=== PATIENT | female | born 1975 | race American Indian/Alaskan Native ===

== ENCOUNTER 2016-12-05 01:24 | Inpatient (IN) | payer MEDICARE ==
[2016-12-05] MEDS ORDERED: DILAUDID IV ONE ×2 (01:59→02:46)
[2016-12-05] MEDS ORDERED: ZOFRAN IV ONE (01:59)
[2016-12-05 02:16] LABS: Basophils % (Auto) 0.2 % (0.0-1.8); Eosinophils % (Auto) 1.4 % (0.0-4.3); Hematocrit 24.7 % (30.3-42.9); Hemoglobin 7.9 gm/dl (10.1-14.3); Mean Corpuscular HGB Conc 32 % (30-34); Mean Corpuscular Hemoglobin 33 pg (28-32); Mean Corpuscular Volume 102 fl (79-97); Platelet Count 263 K/mm3 (140-440); Red Blood Count 2.42 M/mm3 (3.65-5.03); Red Cell Distribution Width 18.6 % (13.2-15.2)
[2016-12-05 02:33] LABS: INR 0.99 (0.87-1.13)
[2016-12-05 02:34] LABS: Partial Thromboplastin Time 30.6 Sec. (24.2-36.6)
[2016-12-05 02:37] LABS: Albumin 3.6 g/dL (3.9-5); Albumin/Globulin Ratio 1.1 %; BUN/Creatinine Ratio 3.02; Bilirubin,Total 0.2 mg/dL (0.1-1.2); Calcium 9.5 mg/dL (8.4-10.2)
[2016-12-05 02:38] LABS: Chloride 92.3 mmol/L (98-107); Potassium 4.1 mmol/L (3.6-5.0)
--- NOTE | 2016-12-05 02:52 | Emergency Department Report ---
- General Chief Complaint: Wound/Laceration Stated Complaint: BLEEDING FISTULA Time Seen by Provider: 12/05/16 01:57 Source: patient, EMS, old records reviewed Mode of arrival: Stretcher Limitations: No Limitations - History of Present Illness Initial Comments: 41 yo female the past medical history diabetes, hypertension, kidney stones, end -stage renal disease on dialysis, and pancreatitis presents to the hospital complaining of bleeding from her right upper arm fistula. Started tonight prior to arrival. EMS was seen states she soaked through 2 with towels. Pressure bandage applied around to the hospital. Patient complains of moderate to severe right arm pain secondary to compression dressing. Pain is constant. On November 30 patient had bleeding to the same site. She was seen by her vascular doctors affiliated with [facility] on the and had a fistulogram that was unremarkable. Patient was scheduled to follow-up next week. In the meantime dialysis is being provided Wednesday, , Wednesday via her permacath in her chest wall. Patient is scheduled for dialysis today/ the . Ent Surgeon: Dr. Guzmán - Related Data Home Medications Medication Instructions Recorded Confirmed Last Taken Clonidine HCl [Catapres] 0.3 mg PO BID 07/04/13 09/04/14 04/24/14 Metoprolol [Lopressor TAB] 1 tab PO DAILY 07/04/13 09/04/14 04/24/14 glipiZIDE [glipiZIDE XL] 10 mg PO BID 07/04/13 09/04/14 04/25/14 Aspirin [Aspirin TAB] 325 mg PO DAILY 04/25/14 09/04/14 04/25/14 Sevelamer Carbonate [Renvela] 400 mg PO TID 04/25/14 09/04/14 04/24/14 Allergies Allergy/AdvReac Type Severity Reaction Status Date / Time warfarin sodium Allergy Hives Verified 09/03/14 17:15 [From Coumadin] ED Review of Systems ROS: Stated complaint: BLEEDING FISTULA Other details as noted in HPI Comment: All other systems reviewed and negative Other: Constitutional: No fevers chills Eyes: No eye pain visual changes or discharge ENT: No ear pain or throat pain Neck: Denies pain Respiratory: Denies cough wheezing shortness of breath Cardiovascular: Denies chest pain, palpitations, syncope GI: Denies abdominal pain, nausea, vomiting, diarrhea : Denies dysuria Musculoskeletal: As per HPI Skin: Denies rash, lesions, erythema Neurologic: Denies headache, numbness, weakness Psychiatric: Denies suicidal ideation, hallucinations ED Past Medical Hx - Past Medical History Previous Medical History?: Yes Hx Hypertension: Yes Hx Diabetes: Yes Hx Renal Disease: Yes Hx Kidney Stones: Yes Additional medical history: Dialysis (TTS). Pancreatitis - Surgical History Hx Cholecystectomy: Yes Additional Surgical History: fistula to left arm. PERMACATH LEFT CHEST. fistula to right arm - Social History Smoking Status: Never Smoker Substance Use Type: None - Medications Home Medications: Home Medications Medication Instructions Recorded Confirmed Last Taken Type Clonidine HCl [Catapres] 0.3 mg PO BID 07/04/13 09/04/14 04/24/14 History Metoprolol [Lopressor TAB] 1 tab PO DAILY 07/04/13 09/04/14 04/24/14 History glipiZIDE [glipiZIDE XL] 10 mg PO BID 07/04/13 09/04/14 04/25/14 History Aspirin [Aspirin TAB] 325 mg PO DAILY 04/25/14 09/04/14 04/25/14 History Sevelamer Carbonate [Renvela] 400 mg PO TID 04/25/14 09/04/14 04/24/14 History ED Physical Exam - General Limitations: No Limitations - Other Other exam information: General: No limitations, patient is alert in no acute distress Head exam: Atraumatic, normocephalic Eyes exam: Normal appearance, pupils equal reactive to light, extraocular movements intact ENT: Moist mucous membrane, normal oropharynx Neck exam: Normal inspection, full range of motion, no meningismus nontender Respiratory exam: Clear to auscultation bilateral, no wheezes, rales, crackles Cardiovascular: Normal rate and rhythm, normal heart sounds Abdomen: Soft, nondistended, and nontender, with normal bowel sounds, no rebound, or guarding Extremity: Full range of motion. Right upper arm with pressure dressing. After removal positive pulsatile bleeding. We'll redress with heliostat, gauze and pressure bandage and held in elevation Back: Normal Inspection, full range of motion, no tenderness Neurologic: Alert, oriented x3, cranial nerves intact, no motor or sensory deficit Psychiatric: normal affect, normal mood Skin: Warm, dry, intact ED Course Vital Signs 12/05/16 12/05/16 12/05/16 01:21 01:30 01:31 Temperature 98.3 F Pulse Rate 115 H 111 H Respiratory 16 17 16 Rate Blood Pressure 147/94 Blood Pressure 147/94 [Left] O2 Sat by Pulse 100 97 Oximetry 12/05/16 12/05/16 12/05/16 01:41 01:51 02:01 Temperature Pulse Rate 112 H 110 H 110 H Respiratory 12 11 L 13 Rate Blood Pressure 148/107 Blood Pressure [Left] O2 Sat by Pulse 100 99 Oximetry 12/05/16 12/05/16 12/05/16 02:11 02:21 02:30 Temperature Pulse Rate 107 H 109 H 109 H Respiratory 11 L 12 11 L Rate Blood Pressure 148/107 132/95 139/99 Blood Pressure [Left] O2 Sat by Pulse 100 Oximetry 12/05/16 12/05/16 12/05/16 02:41 02:51 03:00 Temperature Pulse Rate 107 H 106 H Respiratory 21 41 H 12 Rate Blood Pressure 139/99 140/96 138/99 Blood Pressure [Left] O2 Sat by Pulse 100 100 Oximetry 12/05/16 12/05/16 12/05/16 03:11 03:21 03:30 Temperature Pulse Rate 106 H 114 H 105 H Respiratory 17 16 12 Rate Blood Pressure 138/99 171/124 137/96 Blood Pressure [Left] O2 Sat by Pulse 99 100 99 Oximetry 12/05/16 12/05/16 12/05/16 03:41 03:51 04:00 Temperature Pulse Rate 105 H 106 H 103 H Respiratory 12 14 12 Rate Blood Pressure 137/96 135/96 118/101 Blood Pressure [Left] O2 Sat by Pulse 99 99 98 Oximetry 12/05/16 12/05/16 04:10 04:21 Temperature Pulse Rate 104 H 108 H Respiratory 11 L 16 Rate Blood Pressure 118/101 132/94 Blood Pressure [Left] O2 Sat by Pulse 100 100 Oximetry - Reevaluation(s) Reevaluation #1: 12/05/16 04:42 Patient required Dilaudid for pain management with minimum improvement secondary to pain due to pressure bandage. - Consultations Consultation #1: 12/05/16 02:52 Dr. Powell vascular surgeon control clerk [employer] and beverage will come to the ED to place a stitch into patient's bleeding AV access 12/05/16 04:07 Dr. Powell came to the ED to place a stitch recommend that patient have outpatient fistulogram through her vascular surgeon Consultation #2: 12/05/16 04:07 Dr. Guzmán consult regarding patient's persistent resting tachycardia and anemia. States that patient's baseline hemoglobin is typically much higher to 7.9 and recommends 1 unit blood transfusion. Will evaluate and arrange for dialysis as inpatient ED Medical Decision Making - Lab Data Result diagrams: 12/05/16 01:42 12/05/16 01:42 Lab Results 12/05/16 12/05/16 12/05/16 Range/Units 01:42 01:42 01:42 WBC 6.0 (4.5-11.0) K/mm3 RBC 2.42 L (3.65-5.03) M/mm3 Hgb 7.9 L (10.1-14.3) gm/dl Hct 24.7 L (30.3-42.9) % MCV 102 H (79-97) fl MCH 33 H (28-32) pg MCHC 32 (30-34) % RDW 18.6 H (13.2-15.2) % Plt Count 263 (140-440) K/mm3 Lymph % (Auto) 20.4 (13.4-35.0) % [place] % (Auto) 9.9 H (0.0-7.3) % Eos % (Auto) 1.4 (0.0-4.3) % Baso % (Auto) 0.2 (0.0-1.8) % Lymph # 1.2 (1.2-5.4) K/mm3 [place] # 0.6 (0.0-0.8) K/mm3 Eos # 0.1 (0.0-0.4) K/mm3 Baso # 0.0 (0.0-0.1) K/mm3 Seg Neutrophils % 68.1 (40.0-70.0) % Seg Neutrophils # 4.1 (1.8-7.7) K/mm3 PT 13.6 (12.2-14.9) Sec. INR 0.99 (0.87-1.13) APTT 30.6 (24.2-36.6) Sec. Sodium 134 L (137-145) mmol/L Potassium 4.1 (3.6-5.0) mmol/L Chloride 92.3 L (98-107) mmol/L Carbon Dioxide 29 (22-30) mmol/L Anion Gap 17 mmol/L BUN 23 H (7-17) mg/dL Creatinine 7.6 H (0.7-1.2) mg/dL Estimated GFR 7 ml/min BUN/Creatinine Ratio 3.02 % Glucose 146 H (65-100) mg/dL Calcium 9.5 (8.4-10.2) mg/dL Total Bilirubin 0.20 (0.1-1.2) mg/dL AST 18 (5-40) units/L ALT 9 (7-56) units/L Alkaline Phosphatase 70 (35-129) units/L Total Protein 7.0 (6.3-8.2) g/dL Albumin 3.6 L (3.9-5) g/dL Albumin/Globulin Ratio 1.1 % Blood Type Antibody Screen IVIS Antibody Screen Crossmatch 12/05/16 Range/Units 02:00 WBC (4.5-11.0) K/mm3 RBC (3.65-5.03) M/mm3 Hgb (10.1-14.3) gm/dl Hct (30.3-42.9) % MCV (79-97) fl MCH (28-32) pg MCHC (30-34) % RDW (13.2-15.2) % Plt Count (140-440) K/mm3 Lymph % (Auto) (13.4-35.0) % [place] % (Auto) (0.0-7.3) % Eos % (Auto) (0.0-4.3) % Baso % (Auto) (0.0-1.8) % Lymph # (1.2-5.4) K/mm3 [place] # (0.0-0.8) K/mm3 Eos # (0.0-0.4) K/mm3 Baso # (0.0-0.1) K/mm3 Seg Neutrophils % (40.0-70.0) % Seg Neutrophils # (1.8-7.7) K/mm3 PT (12.2-14.9) Sec. INR (0.87-1.13) APTT (24.2-36.6) Sec. Sodium (137-145) mmol/L Potassium (3.6-5.0) mmol/L Chloride (98-107) mmol/L Carbon Dioxide (22-30) mmol/L Anion Gap mmol/L BUN (7-17) mg/dL Creatinine (0.7-1.2) mg/dL Estimated GFR ml/min BUN/Creatinine Ratio % Glucose (65-100) mg/dL Calcium (8.4-10.2) mg/dL Total Bilirubin (0.1-1.2) mg/dL AST (5-40) units/L ALT (7-56) units/L Alkaline Phosphatase (35-129) units/L Total Protein (6.3-8.2) g/dL Albumin (3.9-5) g/dL Albumin/Globulin Ratio % Blood Type A POSITIVE Antibody Screen TNR IVIS Antibody Screen Negative Crossmatch See Detail - Medical Decision Making Patient has anemia. Last hemoglobin on record was from 2014. Although patient is normotensive and no signs of active bleeding at this time she has a persistent resting tachycardia and a hemoglobin of 7.9. Dr. Guzmán consultation states this is a change in her baseline hemoglobin and recommends transfusion of 1 unit PRBCs. Patient will be admitted to the hospital for transfusion and likely dialysis today. - Differential Diagnosis anemia, bleeding fistula Critical Care Time: No Critical care attestation.: If time is entered above; I have spent that time in minutes in the direct care of this critically ill patient, excluding procedure time. ED Disposition Clinical Impression: Hemorrhage of arteriovenous fistula, ESRD (end stage renal disease) on dialysis , Obesity, Class II, BMI 35-39.9, Hyponatremia, Anemia Disposition: OP ADMIT IP TO THIS HOSP Is pt being admited?: Yes Condition: Stable Time of Disposition: 04:44 (Dr Dockery/hosp)
[2016-12-05] MEDS ORDERED: NACL 0.9% 500 ML 500 ML IV ONE (04:02)
[2016-12-05] MEDS ORDERED: MORPHINE IV ONE (04:35)
[2016-12-05] MEDS ORDERED: ZOFRAN IV PRN (04:52)
[2016-12-05] MEDS ORDERED: MORPHINE IV PRN (04:52)
[2016-12-05] MEDS ORDERED: TYLENOL PO PRN (04:52)
[2016-12-05] MEDS ORDERED: DULCOLAX PR PRN (04:52)
--- NOTE | 2016-12-05 04:52 | History and Physical Report ---
History of Present Illness Date of examination: 12/05/16 History of present illness: 41-year-old woman with a history of end-stage renal disease on dialysis, hypertension, diabetes comes emergency room with complaints of spontaneous bleeding profusely from her AV fistula. This is her fifth episode. 2 weeks ago she had bleeding from the fistula but she was able to stop the bleeding at home. She follow-up with her vascular doctor, Ultrasound was done which showed a hematoma. The patient was seen by vascular in the emergency room Patient denies chest pain, palpitation, shortness of breath, cough, abdominal pain, hematochezia, dysuria, frequency, focal weakness, dysarthria, fever chills , polydipsia polyuria, hot or cold intolerance, easy bruisability, or rash or bleeding from mucosal membrane, rhinorrhea, epistaxis, earache, tinnitus, blurry vision, eye discharge, anxiety, depression. Other review of systems negative PAST SURGICAL HISTORY: AV Fistula a cholecystectomy SOCIAL HISTORY: Denies alcohol, drugs, admits to smoking FAMILY HISTORY: Hypertension Medications and Allergies Allergies Allergy/AdvReac Type Severity Reaction Status Date / Time warfarin sodium Allergy Hives Verified 09/03/14 17:15 [From Coumadin] Home Medications Medication Instructions Recorded Confirmed Last Taken Type Clonidine HCl [Catapres] 0.3 mg PO BID 07/04/13 09/04/14 04/24/14 History Metoprolol [Lopressor TAB] 1 tab PO DAILY 07/04/13 09/04/14 04/24/14 History glipiZIDE [glipiZIDE XL] 10 mg PO BID 07/04/13 09/04/14 04/25/14 History Aspirin [Aspirin TAB] 325 mg PO DAILY 04/25/14 09/04/14 04/25/14 History Sevelamer Carbonate [Renvela] 400 mg PO TID 04/25/14 09/04/14 04/24/14 History Exam - Physical Exam Narrative exam: Gen. appearance: Patient lying in bed, no apparent distress HEENT: Normocephalic, atraumatic, pupils equally round and reactive to light, extraocular movement intact, and no sclericterus,. No JVD or thyromegaly or nodule,neck supple, no carotid bruit ,mucous membranes moist, no exudate or erythema Heart: S1, S2, regular rate and rhythm Lungs: Clear to auscultation bilaterally, breathing comfortable Abdomen: Positive bowel sounds, nontender, nondistended, no organomegaly Extremity: right arm wrapped, No edema, cyanosis, clubbing Skin: No rash, nodules, warm, dry Neuro: Oriented 3, cranial nerves II-12 intact, speech is fluent, motor and sensory intact - Constitutional Vitals: Temp Pulse Resp BP Pulse Ox 98.3 F 108 H 16 132/94 100 12/05/16 01:30 12/05/16 04:21 12/05/16 04:21 12/05/16 04:21 12/05/16 04:21 Results - Labs CBC & Chem 7: 12/05/16 01:42 12/05/16 01:42 Labs: Abnormal lab results 12/05/16 12/05/16 12/05/16 Range/Units 01:42 01:42 02:00 RBC 2.42 L (3.65-5.03) M/mm3 Hgb 7.9 L (10.1-14.3) gm/dl Hct 24.7 L (30.3-42.9) % MCV 102 H (79-97) fl MCH 33 H (28-32) pg RDW 18.6 H (13.2-15.2) % [place] % (Auto) 9.9 H (0.0-7.3) % Sodium 134 L (137-145) mmol/L Chloride 92.3 L (98-107) mmol/L BUN 23 H (7-17) mg/dL Creatinine 7.6 H (0.7-1.2) mg/dL Glucose 146 H (65-100) mg/dL Albumin 3.6 L (3.9-5) g/dL Crossmatch See Detail Assessment and Plan Bleeding from AV fistula Blood loss anemia Hypertension Diabetes End-stage renal disease Admit to medicine Transfuse packed red cells, consult vascular Consult Renal for dialysis Check fingersticks initiate insulin sliding scale Continue appropiate outpatient medications, start DVT prophylaxis with SCD
[2016-12-05] MEDS ORDERED: D50W (25GM) IV PRN (05:18)
[2016-12-05] MEDS: GLUCOTROL XL PO SCH ×2 (08:46→19:00)
[2016-12-05] MEDS: RENVELA PO SCH ×3 (08:46→19:00)
[2016-12-05] MEDS: NOVOLOG SUB-Q SCH ×4 (09:10→23:00)
[2016-12-05] MEDS ORDERED: NON-FORMULARY (Clonidine Hcl [Catapres] 0.3 MG) PO SCH (10:00)
--- NOTE | 2016-12-05 11:09 | Event Note ---
Date: 12/05/16 Patient was seen and evaluated ESRD on HD, Bleeding from AV fistula site. Vascular surgery Dr Powell did suturing and put bandage on the right arm. Patient is complaining of right arm pain and swelling. Dr. Powell will be called to evaluate her.
[2016-12-05] MEDS ORDERED: NACL 0.9% 100 ML IV PRN (11:19)
[2016-12-05] MEDS ORDERED: HEPARIN IV PRN (11:19)
[2016-12-05] MEDS ORDERED: PROCRIT IV PRN (11:19)
[2016-12-05 12:35] LABS: Hematocrit 26.2 % (30.3-42.9); Hemoglobin 8.4 gm/dl (10.1-14.3)
[2016-12-05] MEDS: LOPRESSOR PO SCH (12:59)
[2016-12-05] MEDS: CATAPRES PO SCH ×2 (12:59→23:00)
--- NOTE | 2016-12-05 15:17 | Consultation ---
History of Present Illness - Reason for Consult Consult date: 12/05/16 end stage renal disease Requesting physician: GRICELDA CORDERO - History of Present Illness 41-year-old woman with a history of 2 diabetes mellitus, hypertension complicated by end-stage renal disease on hemodialysis Wednesday, and Wednesday schedule. Patient had a right upper extremity AV fistula placed about a couple months ago. She has been having recurrent spontaneous bleeding profusely from her arm with the AV fistula. This is her fifth episode. He has a wound in that arm. 2 weeks ago she had bleeding from the fistula but she was able to stop the bleeding at home. He saw vascular surgeon and had an ultrasound done. Patient had bleeding on November 30 and we'll consult vascular surgeon again at [facility] on December 02 and had a fistulogram. She was told by the surgeon that she had central venous stenosis. She would not be able to use the AV fistula. She has had at least 2 permacath in the right internal jugular line in the past. The right upper extremity AV fistula will have to be taken down and a new AV fistula placed in the left upper extremity. She currently receives dialysis through a left internal jugular permacath. Patient presents now from home as she was changing her clothes to go to bed last night, she developed bleeding again from the right upper arm with AV fistula. She called 911 immediately. She soaked through 2 towels by the time EMS came. They placed a pressure bandage and patient was brought to the emergency room. Vascular surgeon was called and Dr. Powell put a stitch at the bleeding site over AV access. Hemoglobin was down to 7.9 g/dL and patient was tachycardic and so she was admitted for further observation. Past History Past Medical History: ESRD, hypertension Medications and Allergies Allergies Allergy/AdvReac Type Severity Reaction Status Date / Time warfarin sodium Allergy Hives Verified 09/03/14 17:15 [From Coumadin] Home Medications Medication Instructions Recorded Confirmed Last Taken Type Clonidine HCl [Catapres] 0.3 mg PO BID 07/04/13 09/04/14 04/24/14 History Metoprolol [Lopressor TAB] 1 tab PO DAILY 07/04/13 09/04/14 04/24/14 History glipiZIDE [glipiZIDE XL] 10 mg PO BID 07/04/13 09/04/14 04/25/14 History Aspirin [Aspirin TAB] 325 mg PO DAILY 04/25/14 09/04/14 04/25/14 History Sevelamer Carbonate [Renvela] 400 mg PO TID 04/25/14 09/04/14 04/24/14 History Active Meds: Active Medications Acetaminophen (Tylenol) 650 mg PO Q4H PRN PRN Reason: Pain MILD(1-3)/Fever >100.5/POWERS Last Admin: 12/05/16 13:04 Dose: 650 mg Bisacodyl (Dulcolax) 10 mg RI QDAY PRN PRN Reason: Constipation unrelieved by MOM Clonidine HCl (Catapres) 0.3 mg PO BID [facility] Last Admin: 12/05/16 12:59 Dose: Not Given Dextrose (D50w (25gm)) 50 ml IV PRN PRN PRN Reason: Hypoglycemia Epoetin Deepak (Procrit) 10,000 unit IV MORE PRN PRN Reason: hemodialysis Glipizide (Glucotrol Xl) 10 mg PO BIDDIAB [facility] Last Admin: 12/05/16 08:46 Dose: 10 mg Heparin Sodium (Porcine) (Heparin) 5,000 unit IV MORE PRN PRN Reason: hemodialysis Sodium Chloride (Nacl 0.9%) 100 mls @ 999 mls/hr IV MORE PRN PRN Reason: Hypotension Insulin Aspart (Novolog) 0 units SUB-Q ACHS [facility] PRN Reason: Protocol Last Admin: 12/05/16 12:59 Dose: 3 units Metoprolol Tartrate (Lopressor) 50 mg PO DAILY [facility] Last Admin: 12/05/16 12:59 Dose: Not Given Morphine Sulfate (Morphine) 2 mg IV Q4H PRN PRN Reason: Pain, Moderate (4-6) Ondansetron HCl (Zofran) 4 mg IV Q8H PRN PRN Reason: N/V unrelieved by Reglan Sevelamer Carbonate (Renvela) 400 mg PO TIDWM [facility] Last Admin: 12/05/16 12:58 Dose: 400 mg Review of Systems All systems: negative (Constitutional: no fever or chills. No anorexia or weight loss. HEENT: No sore throat or sinus drainage no hearing or vision impairment . Cardiovascular: No chest pain, shortness of breath, palpitations, lower extremity swelling or dizziness. Respiratory: No cough, sputum, shortness of breath, hemoptysis or wheezing. Gastrointestinal: No nausea, vomiting, diarrhea, abdominal pain, hematemesis or melena. Genitourinary: No longer makes urine. hematologic: She had bleeding from the right upper arm with AV fistula but no easy bruising. Integumentary: no pruritus or rash. Neurological: No headache no focal weakness or numbness, no syncope or seizures. Musculoskeletal: No joint pains no stiffness. She has pain in the right upper arm Psychiatry: no anxiety or depression) Exam - Vital Signs Vital signs: Vital Signs Resp Pulse Ox 16 100 12/05/16 01:21 12/05/16 01:21 - Physical Exam Narrative exam: [Obese young -[place] female lying in bed] in no acute distress except for pain HEENT [normocephalic atraumatic, pupils equal reactive to light, pink, clear oropharynx] Neck [supple, no thyromegaly no jugular venous distention] CVS [S1-S2 regular rate rhythm without murmur, rub or gallop] Chest [clear to auscultation] Abdomen [soft nondistended nontender no organomegaly no bruit bowel sounds present] Extremities [Pressure dressing over her right upper extremity, swelling over right upper extremity, no edema no cyanosis or clubbing] Genitourinary [deferred] Neuro [awake, alert oriented x3 no gross deficit] Results - Lab Results 12/05/16 12:21 12/05/16 01:42 Most recent lab results Calcium 9.5 mg/dL (8.4-10.2) 12/05/16 01:42 Assessment and Plan - Patient Problems (1) Acute post-hemorrhagic anemia Current Visit: Yes Status: Acute Plan to address problem: Hemoglobin predialysis. It drops to less than 7 g/dL, transfuse another unit of packed red blood (2) Hypertensive chronic kidney disease with stage 5 chronic kidney disease or end stage renal disease Current Visit: Yes Status: Acute Plan to address problem: Follow blood pressure (3) ESRD (end stage renal disease) on dialysis Current Visit: Yes Status: Acute Plan to address problem: Hemodialysis today for solute clearance and fluid removal. (4) Hemorrhage of arteriovenous fistula Current Visit: Yes Status: Acute Qualifiers: Encounter type: E Plan to address problem: Follow-up with vascular surgeon (5) Anemia in end-stage renal disease Current Visit: Yes Status: Acute Plan to address problem: Give erythropoietin on dialysis (6) Type II diabetes mellitus Current Visit: No Status: Chronic Qualifiers: Diabetes mellitus complication status: D Diabetes mellitus complication detail: D Diabetic retinopathy severity: D Proliferative retinopathy type: P Diabetes mellitus macular edema: D Diabetes mellitus long-term insulin use : D Laterality: L Chronic kidney disease stage: C Plan to address problem: Blood sugar management by primary attending
[2016-12-05 17:10] LABS: Hematocrit 22.1 % (30.3-42.9); Hemoglobin 7.4 gm/dl (10.1-14.3)
[2016-12-05] MEDS ORDERED: NACL 0.9 (PRIMING MACHINE ONLY DIALYSIS) MC ONE (18:37)
[2016-12-05] MEDS: PERCOCET 5/325 PO PRN (22:40)
[2016-12-06 07:00] LABS: Hematocrit 22.4 % (30.3-42.9); Hemoglobin 7.4 gm/dl (10.1-14.3)
[2016-12-06 07:19] LABS: BUN/Creatinine Ratio 2.41; Calcium 8.8 mg/dL (8.4-10.2); Chloride 97.9 mmol/L (98-107); Potassium 4.2 mmol/L (3.6-5.0)
[2016-12-06] MEDS: GLUCOTROL XL PO SCH (08:00)
[2016-12-06 08:30] VITALS: BP 133/61
[2016-12-06] MEDS: NOVOLOG SUB-Q SCH (09:07)
--- NOTE | 2016-12-06 09:10 | Consultation ---
History of Present Illness - Reason for Consult Consult date: 12/12/16 bleeding right arm fistula - History of Present Illness Presented to ED with bleeding right arm fistula site. She has a h/o Basilic Vein fistula creation which hasn't been used due to ulcer present after infection. The ulcer has been healing. She denies h/o radiation, no other significant medical issues besides ESRD on HD via left Permacath. Past History Past Medical History: ESRD, hypertension Medications and Allergies Allergies Allergy/AdvReac Type Severity Reaction Status Date / Time warfarin sodium Allergy Hives Verified 09/03/14 17:15 [From Coumadin] Home Medications Medication Instructions Recorded Confirmed Last Taken Type Clonidine HCl [Catapres] 0.3 mg PO BID 07/04/13 12/05/16 12/04/16 History Metoprolol [Lopressor TAB] 1 tab PO DAILY 07/04/13 12/05/16 12/04/16 History glipiZIDE [glipiZIDE XL] 10 mg PO BID 07/04/13 12/05/16 12/04/16 History Aspirin [Aspirin TAB] 325 mg PO DAILY 04/25/14 12/05/16 12/04/16 History Sevelamer Carbonate [Renvela] 400 mg PO TID 04/25/14 12/05/16 12/04/16 History Active Meds: Active Medications Acetaminophen (Tylenol) 650 mg PO Q4H PRN PRN Reason: Pain MILD(1-3)/Fever >100.5/POWERS Last Admin: 12/05/16 13:04 Dose: 650 mg Bisacodyl (Dulcolax) 10 mg UT QDAY PRN PRN Reason: Constipation unrelieved by MOM Clonidine HCl (Catapres) 0.3 mg PO BID [facility] Last Admin: 12/05/16 23:00 Dose: Not Given Dextrose (D50w (25gm)) 50 ml IV PRN PRN PRN Reason: Hypoglycemia Epoetin Deepak (Procrit) 10,000 unit IV MORE PRN PRN Reason: hemodialysis Last Admin: 12/05/16 20:51 Dose: 10,000 unit Glipizide (Glucotrol Xl) 10 mg PO BIDDIAB [facility] Last Admin: 12/05/16 19:00 Dose: Not Given Heparin Sodium (Porcine) (Heparin) 5,000 unit IV MORE PRN PRN Reason: hemodialysis Last Admin: 12/05/16 20:52 Dose: 5,000 unit Sodium Chloride (Nacl 0.9%) 100 mls @ 999 mls/hr IV MORE PRN PRN Reason: Hypotension Insulin Aspart (Novolog) 0 units SUB-Q ACHS MERLE PRN Reason: Protocol Last Admin: 12/05/16 23:00 Dose: 3 units Metoprolol Tartrate (Lopressor) 50 mg PO DAILY [facility] Last Admin: 12/05/16 12:59 Dose: Not Given Ondansetron HCl (Zofran) 4 mg IV Q8H PRN PRN Reason: N/V unrelieved by Reglan Oxycodone/Acetaminophen (Percocet 5/325) 1 tab PO Q4H PRN PRN Reason: Pain, Moderate (4-6) Last Admin: 12/05/16 22:40 Dose: 1 tab Sevelamer Carbonate (Renvela) 400 mg PO TIDWM [facility] Last Admin: 12/05/16 19:00 Dose: Not Given Review of Systems Constitutional: no fever, no chills, no sweats Ears, nose, mouth and throat: no vertigo Cardiovascular: no chest pain Respiratory: no shortness of breath, no wheezing Gastrointestinal: no abdominal pain Musculoskeletal: other (right arm pain) Integumentary: rash Neurological: no vertigo Psychiatric: anxiety Endocrine: no excessive sweating Hematologic/Lymphatic: other (bleeding from right arm) Allergic/Immunologic: no urticaria Exam - Constitutional Vitals: Temp Pulse Resp BP Pulse Ox 98.8 F 95 H 20 133/61 99 12/06/16 07:00 12/06/16 07:00 12/06/16 07:00 12/06/16 07:00 12/06/16 07:00 General appearance: Present: no acute distress - EENT Eyes: Present: EOM intact ENT: hearing intact - Neck Neck: Present: normal ROM - Respiratory Respiratory effort: normal - Cardiovascular Rhythm: regular - Extremities Extremities: abnormal (Right arm edema) Extremity abnormal: edema Peripheral Pulses: within normal limits (right radial and brachial pulses) - Abdominal General gastrointestinal: Present: soft - Integumentary Integumentary: Present: warm, rash - Psychiatric Psychiatric: appropriate mood/affect - Neurologic Neurologic: moves all extremities Results - Labs CBC & Chem 7: 12/06/16 00:00 12/06/16 06:32 Labs: Abnormal lab results 12/05/16 12/05/16 12/05/16 Range/Units 11:09 12:21 16:22 Hgb 8.4 L (10.1-14.3) gm/dl Hct 26.2 L (30.3-42.9) % Chloride (98-107) mmol/L Creatinine (0.7-1.2) mg/dL Glucose (65-100) mg/dL POC Glucose 168 H 157 H (70-105) 12/05/16 12/05/16 12/06/16 Range/Units 22:05 Unknown 00:00 Hgb 7.4 L 7.4 L (10.1-14.3) gm/dl Hct 22.1 L 22.4 L (30.3-42.9) % Chloride (98-107) mmol/L Creatinine (0.7-1.2) mg/dL Glucose (65-100) mg/dL POC Glucose 181 H (70-105) 12/06/16 12/06/16 Range/Units 05:29 06:32 Hgb (10.1-14.3) gm/dl Hct (30.3-42.9) % Chloride 97.9 L (98-107) mmol/L Creatinine 6.2 H (0.7-1.2) mg/dL Glucose 149 H (65-100) mg/dL POC Glucose 174 H (70-105) Assessment and Plan Right arm bleeding fistula with healing ulcer: Bleeding site appears to be a previous attempted puncture site, away from superficial healing ulcer. Ulcer was suture repaired after betadine used on the area with 3-0 prolene figure-of- eight and mattress sutures. She reports recently having a fistula duplex ultrasound by her vascular surgeon for the same issue of prolonged bleeding and it was normal. I advised her she should have a right arm fistulogram by her vascular surgeon and she will follow up with him Wednesday (H/o right permacaths).
[2016-12-06] MEDS: RENVELA PO SCH (09:36)
[2016-12-06] MEDS: LOPRESSOR PO SCH (09:37)
[2016-12-06] MEDS: CATAPRES PO SCH (09:38)
[2016-12-06] MEDS: PERCOCET 5/325 PO PRN (09:50)
[2016-12-06 09:53] LABS: Eosinophils % (Auto) 2.3 % (0.0-4.3); Hematocrit 25.6 % (30.3-42.9); Hemoglobin 8.4 gm/dl (10.1-14.3); Mean Corpuscular HGB Conc 33 % (30-34); Mean Corpuscular Hemoglobin 33 pg (28-32); Mean Corpuscular Volume 99 fl (79-97); Platelet Count 215 K/mm3 (140-440); Red Blood Count 2.58 M/mm3 (3.65-5.03); White Blood Count 5.1 K/mm3 (4.5-11.0)
[2016-12-06 10:05] LABS: Red Cell Distribution Width 20.2 % (13.2-15.2)
--- NOTE | 2016-12-06 13:11 | Discharge Summary ---
Providers - Providers Date of Admission: 12/05/16 04:52 Date of discharge: 12/06/16 Attending physician: GRICELDA CORDERO MD 12/05/16 07:51 Consult to Physician [CONS] Routine Consulting Provider: ELLEN PAINTER Reason For Exam: ESRD on H/D, Bleeding from AVF Place consult to:: Nephrology Notified:: duplicate order Primary care physician: [employer] Hospitalization Condition: Stable Hospital course: Patient with end-stage renal disease presented from bleeding for AV fistula. Patient had vascular evaluation who corrected bleeding vessel was sutured. Patient was stable no further episodes of bleeding hemoglobin hematocrit remained stable after transfusion. Patient had other means of having an receiving her hemodialysis. Patient was informed and educated to follow-up with vascular surgeon Wednesday at [facility]. She will have right arm fistulogram by her vascular surgeon at [place] on Wednesday. No further bleeding. Swelling has also diminished. We'll continue and at pressure bandage as on now. Informed not to change dressing until tomorrow when she sees vascular surgeon. Disposition: TO HOME OR SELFCARE - Discharge Diagnoses (1) Acute post-hemorrhagic anemia Status: Acute (2) Hemorrhage of arteriovenous fistula Status: Acute Qualifiers: Encounter type: E (3) Hypertensive chronic kidney disease with stage 5 chronic kidney disease or end stage renal disease Status: Acute (4) Obesity, Class II, BMI 35-39.9 Status: Chronic (5) Tobacco abuse Status: Acute (6) End-stage renal disease needing dialysis Status: Chronic Comment: Per nephrology. Core Measure Documentation - Palliative Care Palliative Care/ Comfort Measures: Not Applicable - Core Measures Any of the following diagnoses?: none Exam - Constitutional Vitals: Temp Pulse Resp BP Pulse Ox 98.8 F 95 H 20 133/61 95 12/06/16 07:00 12/06/16 07:00 12/06/16 07:00 12/06/16 07:00 12/06/16 09:13 General appearance: Present: no acute distress, well-nourished, obese - EENT ENT: hearing intact, clear oral mucosa - Neck Neck: Present: supple, normal ROM - Respiratory Respiratory: bilateral: CTA - Cardiovascular Heart Sounds: Present: S1 & S2. Absent: rub, click - Extremities Extremities: pulses symmetrical, No edema Extremity abnormal: other (right arm swelling no further bleeding. Also has been sutured. No exudate no evidence of infection.) - Abdominal General gastrointestinal: Present: soft, non-tender, non-distended, normal bowel sounds - Musculoskeletal Musculoskeletal: gait normal, strength equal bilaterally - Psychiatric Psychiatric: appropriate mood/affect, intact judgment & insight - Neurologic Neurologic: CNII-XII intact, moves all extremities Plan Activity: no restrictions, avoid flexion Weight Bearing Status: Full Weight Bearing Diet: renal Follow up with: PRIMARY CARE, [Primary Care Provider] - 7 Days Prescriptions: glipiZIDE XL [Glucotrol Xl] 10 mg PO BIDDIAB #30 tablet Metoprolol [Lopressor TAB] 1 tab PO DAILY #30 tablet oxyCODONE /ACETAMINOPHEN [Percocet 5/325 mg] 1 tab PO Q4H PRN #30 tablet PRN Reason: Pain, Moderate (4-6)
--- NOTE | 2016-12-06 14:28 | Progress Note ---
Assessment and Plan - Patient Problems (1) Acute post-hemorrhagic anemia Current Visit: Yes Status: Acute Plan to address problem: Hemoglobin has improved to 8.4 g/dL. Okay to discharge from my standpoint. Patient has appointment to follow-up with vascular surgeon in the morning. Hemodialysis on Wednesday when she begins training on home hemodialysis. (2) Hypertensive chronic kidney disease with stage 5 chronic kidney disease or end stage renal disease Current Visit: Yes Status: Acute Plan to address problem: Follow blood pressure (3) ESRD (end stage renal disease) on dialysis Current Visit: Yes Status: Acute Plan to address problem: Hemodialysis on Wednesday as an outpatient. 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 She is feeling much better. No further episodes of bleeding. Had Dialysis yesterday with no complications. Objective - Exam Narrative Exam: Obese young -[place] female lying in bed in no acute distress HEENT normocephalic atraumatic, pupils equal reactive to light, pink, clear oropharynx Neck supple, no thyromegaly no jugular venous distention CVS S1-S2 regular rate rhythm without murmur, rub or gallop Chest clear to auscultation Abdomen soft nondistended nontender no organomegaly no bruit bowel sounds present Extremities Pressure dressing over her right upper extremity, swelling over right upper extremity, no edema no cyanosis or clubbing Neuro awake, alert oriented x3 no gross deficit - Vital Signs Vital signs: Vital Signs - 12hr 12/06/16 12/06/16 07:00 09:13 Temperature 98.8 F Pulse Rate [ 95 H Left Radial] Respiratory 20 Rate Blood Pressure 133/61 [Left Arm] O2 Sat by Pulse 99 95 Oximetry - Lab 12/06/16 09:20 12/06/16 06:32 Most recent lab results Calcium 8.8 mg/dL (8.4-10.2) 12/06/16 06:32
== END 2016-12-06 15:00 | disposition home or self-care (01) | DRG 314 ==
LOC: ED 01:24 → 3A 04:52
PROVIDERS: ADMIT Internal Medicine; ATTEND Internal Medicine
PROC: 30233N1 Transfusion of Nonautologous Red Blood Cells into Peripheral Vein, Percutaneous Approach (ICD-10-PCS; principal; 2016-12-05)
PROC: 5A1D00Z (ICD-10-PCS; 2016-12-05)
PROC: 2W2CX4Z Dressing of Right Lower Arm using Bandage (ICD-10-PCS; 2016-12-05)
DX: T82.838A Hemorrhage due to vascular prosthetic devices, implants and grafts, initial encounter (principal); N18.6 End stage renal disease; D62 Acute posthemorrhagic anemia; I12.0 Hypertensive chronic kidney disease with stage 5 chronic kidney disease or end stage renal disease; E87.1 Hypo-osmolality and hyponatremia; Z68.42 Body mass index [BMI] 45.0-49.9, adult; E66.9 Obesity, unspecified; Y84.8 Other medical procedures as the cause of abnormal reaction of the patient, or of later complication, without mention of misadventure at the time of the procedure; F17.200 Nicotine dependence, unspecified, uncomplicated; E11.22 Type 2 diabetes mellitus with diabetic chronic kidney disease; F41.9 Anxiety disorder, unspecified; L98.499 Non-pressure chronic ulcer of skin of other sites with unspecified severity; Z87.442 Personal history of urinary calculi; Z90.49 Acquired absence of other specified parts of digestive tract; Z82.49 Family history of ischemic heart disease and other diseases of the circulatory system
CPT/HCPCS: 36415; 80048; 80053; 82962; 85014; 85018; 85025; 85610; 85730; 86850; 86900; 86901; 86920; 96374; 96375; 96376; 99406; A6021; J0885; J1170; J1644; J1815; J2270; J2405; J7030; J7040; P9016

== ENCOUNTER 2017-08-15 12:19 | Inpatient (IN) | payer MEDICARE ==
[2017-08-15 13:32] LABS: Basophils % (Auto) 0.5 % (0.0-1.8); Eosinophils # (Auto) 0.1 K/mm3 (0.0-0.4); Eosinophils % (Auto) 0.8 % (0.0-4.3); Hematocrit 25.5 % (30.3-42.9); Hemoglobin 8.4 gm/dl (10.1-14.3); Lymphocytes # (Auto) 0.7 K/mm3 (1.2-5.4); Mean Corpuscular HGB Conc 33 % (30-34); Mean Corpuscular Hemoglobin 27 pg (28-32); Mean Corpuscular Volume 82 fl (79-97); Monocytes # (Auto) 0.7 K/mm3 (0.0-0.8); Monocytes % (Auto) 8.5 % (0.0-7.3); Platelet Count 200 K/mm3 (140-440); Red Blood Count 3.11 M/mm3 (3.65-5.03); Red Cell Distribution Width 18.5 % (13.2-15.2)
[2017-08-15 13:42] LABS: INR 1.01 (0.87-1.13)
[2017-08-15 13:55] LABS: Calcium 8.6 mg/dL (8.4-10.2)
[2017-08-15] MEDS ORDERED: VANCOMYCIN/NS 1 GM/250 ML 1 GM/250 ML BAG IV ONE (17:37)
--- NOTE | 2017-08-15 17:41 | Emergency Department Report ---
ED General Adult HPI - General Chief complaint: Medical Clearance Stated complaint: ABNORMAL LABS Time Seen by Provider: 08/15/17 17:28 Source: patient Mode of arrival: Ambulatory Limitations: No Limitations - History of Present Illness Initial comments: Patient is 42 years old female history of end-stage disease on hemodialysis at home. Patient presented to the ER after she received a call from [facility] where she was admitted last week she was told that she needed to go to the hospital because she still have infection in her blood. Patient stated that 1 week ago her dialysis catheter came out and she pushed it back in , and since then she started having high fever she went to [facility] and was admitted for infection receive antibiotic and she signed AGAINST MEDICAL ADVICE. Patient did not go to [facility] because her kidney doctor Dr. Guzmán, does not go over there. Patient denied any fever at this moment. No nausea no vomiting. - Related Data Home Medications Medication Instructions Recorded Confirmed Last Taken glipiZIDE [glipiZIDE XL] 10 mg PO BID 07/04/13 08/15/17 07/27/17 Sevelamer Carbonate [Renvela] 400 mg PO TID 04/25/14 08/15/17 12/04/16 Acetaminophen [Tylenol Extra 500 mg PO DAILY PRN 07/28/17 08/15/17 07/28/17 Strength] Aspirin [Low Dose Aspirin EC] 81 mg PO DAILY 07/28/17 08/15/17 07/28/17 Metoprolol [Lopressor TAB] 50 mg PO BID 07/28/17 08/15/17 07/27/17 cloNIDine [Catapres] 0.2 mg PO DAILY 07/28/17 08/15/17 07/27/17 Allergies Allergy/AdvReac Type Severity Reaction Status Date / Time warfarin sodium Allergy Hives Verified 07/28/17 15:38 [From Coumadin] ED Review of Systems ROS: Stated complaint: ABNORMAL LABS Other details as noted in HPI Comment: All other systems reviewed and negative Constitutional: denies: chills, fever Respiratory: denies: cough, orthopnea, shortness of breath, SOB with exertion Cardiovascular: denies: chest pain, palpitations Gastrointestinal: denies: abdominal pain, nausea, vomiting, diarrhea, constipation, hematemesis, melena, hematochezia Musculoskeletal: denies: back pain Neurological: denies: headache, weakness, numbness, paresthesias ED Past Medical Hx - Past Medical History Hx Hypertension: Yes Hx Diabetes: Yes Hx Renal Disease: Yes Hx Kidney Stones: Yes Additional medical history: Dialysis (TTS), anemia with blood transfusion. Pancreatitis - Surgical History Hx Cholecystectomy: Yes Additional Surgical History: fistula to left arm. PERMACATH LEFT CHEST. fistula to right arm - Social History Smoking Status: Never Smoker Substance Use Type: None - Medications Home Medications: Home Medications Medication Instructions Recorded Confirmed Last Taken Type glipiZIDE [glipiZIDE XL] 10 mg PO BID 07/04/13 08/15/17 07/27/17 History Sevelamer Carbonate [Renvela] 400 mg PO TID 04/25/14 08/15/17 12/04/16 History Acetaminophen [Tylenol Extra 500 mg PO DAILY PRN 07/28/17 08/15/17 07/28/17 History Strength] Aspirin [Low Dose Aspirin EC] 81 mg PO DAILY 07/28/17 08/15/17 07/28/17 History Metoprolol [Lopressor TAB] 50 mg PO BID 07/28/17 08/15/17 07/27/17 History cloNIDine [Catapres] 0.2 mg PO DAILY 07/28/17 08/15/17 07/27/17 History ED Physical Exam - General Limitations: No Limitations General appearance: alert, in no apparent distress - Head Head exam: Present: atraumatic, normocephalic, normal inspection - Eye Eye exam: Present: normal appearance, PERRL - ENT ENT exam: Present: normal exam, normal orophraynx, mucous membranes moist - Neck Neck exam: Present: normal inspection, full ROM. Absent: tenderness, meningismus - Respiratory Respiratory exam: Present: normal lung sounds bilaterally. Absent: respiratory distress, wheezes, rales, rhonchi, chest wall tenderness, accessory muscle use, decreased breath sounds, prolonged expiratory - Cardiovascular Cardiovascular Exam: Present: regular rate, normal rhythm, normal heart sounds - GI/Abdominal GI/Abdominal exam: Present: soft, normal bowel sounds. Absent: distended, tenderness, guarding, rebound, rigid - Extremities Exam Extremities exam: Present: normal inspection, full ROM, normal capillary refill - Back Exam Back exam: Present: normal inspection, full ROM. Absent: tenderness, CVA tenderness (R), CVA tenderness (L), muscle spasm, paraspinal tenderness - Neurological Exam Neurological exam: Present: alert, oriented X3, CN II-XII intact, normal gait - Skin Skin exam: Present: warm, intact, normal color. Absent: dry, cyanosis ED Course Vital Signs 08/15/17 08/15/17 08/15/17 12:32 20:01 20:36 Temperature 99 F 97.9 F Pulse Rate 115 H 101 H 107 H Respiratory 18 20 Rate Blood Pressure 187/109 188/113 Blood Pressure 188/105 [Right] O2 Sat by Pulse 100 100 Oximetry 08/15/17 21:26 Temperature Pulse Rate 106 H Respiratory 20 Rate Blood Pressure Blood Pressure 151/83 [Right] O2 Sat by Pulse 99 Oximetry - Reevaluation(s) Reevaluation #1: 08/15/17 18:13 I discussed the patient is Dr. Padilla who is on-call for Dr. Guzmán he advised to admit the patient to hospitalist and they will follow-up with the patient in the morning. ED Medical Decision Making - Lab Data Result diagrams: 08/15/17 13:11 08/15/17 13:11 - Medical Decision Making I discussed this and is Dr. Pastrana, he agreed to admit the patient to his service. Critical care attestation.: If time is entered above; I have spent that time in minutes in the direct care of this critically ill patient, excluding procedure time. ED Disposition Clinical Impression: ESRD (end stage renal disease) on dialysis, Bacteremia, Infection, dialysis vascular access Disposition: OP ADMIT IP TO THIS HOSP Is pt being admited?: Yes Condition: Stable
[2017-08-15] MEDS ORDERED: VANCOMYCIN/0.45 NS 1 GM/250 ML 1 GM/250 ML BAG IV ONE ×2 (18:00→23:00)
[2017-08-15] MEDS ORDERED: APRESOLINE IV ONE (20:20)
[2017-08-15] MEDS ORDERED: TYLENOL PO PRN (22:03)
--- NOTE | 2017-08-15 22:03 | History and Physical Report ---
History of Present Illness Date of examination: 08/15/17 Date of admission: 08/15/17 19:27 Chief complaint: CC: Positive blood cultures History of present illness: History of Present Illness: Patient is 42 years old female history of end-stage disease on hemodialysis at home. Patient presented to the ER after she received a call from [facility] where she was admitted last week. sShe was told that she needed to go to the hospital because she still have infection in her blood. Patient stated that 1 week ago her dialysis catheter came out and she pushed it back in, and since then she started having high fever she went to [facility] and was admitted for infection receive antibiotic and she signed AGAINST MEDICAL ADVICE b/c her Cold Mill Operator was not on staff there.. Patient did not go to [facility] because her kidney doctor Dr. Guzmán, does not go over there. Patient denied any fever at this moment. No nausea no vomiting. Past Medical History Hx Hypertension: Yes Hx Diabetes: Yes Hx Renal Disease: Yes Hx Kidney Stones: Yes Additional medical history: Dialysis (TTS), anemia with blood transfusion. Pancreatitis Surgical History Hx Cholecystectomy: Yes Additional Surgical History: fistula to left arm. PERMACATH LEFT CHEST. fistula to right arm Social History Smoking Status: Never Smoker Substance Use Type: None Family History Htn Medications Home Medications: Home Medications Medication Instructions Recorded Confirmed Last Taken Type glipiZIDE [glipiZIDE XL] 10 mg PO BID 07/04/13 08/15/17 07/27/17 History Sevelamer Carbonate [Renvela] 400 mg PO TID 04/25/14 08/15/17 12/04/16 History Acetaminophen [Tylenol Extra 500 mg PO DAILY PRN 07/28/17 08/15/17 07/28/17 History Strength] Aspirin [Low Dose Aspirin EC] 81 mg PO DAILY 07/28/17 08/15/17 07/28/17 History Metoprolol [Lopressor TAB] 50 mg PO BID 07/28/17 08/15/17 07/27/17 History cloNIDine [Catapres] 0.2 mg PO DAILY 07/28/17 08/15/17 07/27/17 History Review of Systems ROS: Stated complaint: ABNORMAL LABS Other details as noted in HPI Comment: All other systems reviewed and negative Constitutional: denies: chills, fever Respiratory: denies: cough, orthopnea, shortness of breath, SOB with exertion Cardiovascular: denies: chest pain, palpitations Gastrointestinal: denies: abdominal pain, nausea, vomiting, diarrhea, constipation, hematemesis, melena, hematochezia Musculoskeletal: denies: back pain Neurological: denies: headache, weakness, numbness, paresthesias Medications and Allergies Allergies Allergy/AdvReac Type Severity Reaction Status Date / Time warfarin sodium Allergy Hives Verified 07/28/17 15:38 [From Coumadin] Home Medications Medication Instructions Recorded Confirmed Last Taken Type glipiZIDE [glipiZIDE XL] 10 mg PO BID 07/04/13 08/15/17 07/27/17 History Sevelamer Carbonate [Renvela] 400 mg PO TID 04/25/14 08/15/17 12/04/16 History Acetaminophen [Tylenol Extra 500 mg PO DAILY PRN 07/28/17 08/15/17 07/28/17 History Strength] Aspirin [Low Dose Aspirin EC] 81 mg PO DAILY 07/28/17 08/15/17 07/28/17 History Metoprolol [Lopressor TAB] 50 mg PO BID 07/28/17 08/15/17 07/27/17 History cloNIDine [Catapres] 0.2 mg PO DAILY 07/28/17 08/15/17 07/27/17 History Exam - Constitutional Vitals: Temp Pulse Resp BP Pulse Ox 97.9 F 106 H 20 151/83 99 08/15/17 20:01 08/15/17 21:26 08/15/17 21:26 08/15/17 21:26 08/15/17 21:26 General appearance: Present: no acute distress, well-nourished - EENT Eyes: Present: PERRL ENT: hearing intact, clear oral mucosa - Neck Neck: Present: supple, normal ROM - Respiratory Respiratory effort: normal Respiratory: bilateral: CTA - Cardiovascular Heart rate: 70 Rhythm: regular Heart Sounds: Present: S1 & S2. Absent: rub, click - Extremities Extremities: no ischemia, pulses intact, pulses symmetrical, No edema Peripheral Pulses: within normal limits - Abdominal General gastrointestinal: Present: soft, non-tender, non-distended, normal bowel sounds Female genitourinary: Present: normal - Rectal Rectal Exam: deferred - Integumentary Integumentary: Present: clear, warm, dry - Musculoskeletal Musculoskeletal: gait normal, strength equal bilaterally - Psychiatric Psychiatric: appropriate mood/affect, intact judgment & insight - Neurologic Neurologic: CNII-XII intact, moves all extremities - Allied Health Allied health notes reviewed: nursing, case management Results - Labs CBC & Chem 7: 08/15/17 13:11 08/15/17 13:11 Labs: Laboratory Last Values WBC 8.6 K/mm3 (4.5-11.0) 08/15/17 13:11 RBC 3.11 M/mm3 (3.65-5.03) L 08/15/17 13:11 Hgb 8.4 gm/dl (10.1-14.3) L 08/15/17 13:11 Hct 25.5 % (30.3-42.9) L 08/15/17 13:11 MCV 82 fl (79-97) 08/15/17 13:11 MCH 27 pg (28-32) L 08/15/17 13:11 MCHC 33 % (30-34) 08/15/17 13:11 RDW 18.5 % (13.2-15.2) H 08/15/17 13:11 Plt Count 200 K/mm3 (140-440) 08/15/17 13:11 Lymph % (Auto) 8.0 % (13.4-35.0) L 08/15/17 13:11 [place] % (Auto) 8.5 % (0.0-7.3) H 08/15/17 13:11 Eos % (Auto) 0.8 % (0.0-4.3) 08/15/17 13:11 Baso % (Auto) 0.5 % (0.0-1.8) 08/15/17 13:11 Lymph # 0.7 K/mm3 (1.2-5.4) L 08/15/17 13:11 [place] # 0.7 K/mm3 (0.0-0.8) 08/15/17 13:11 Eos # 0.1 K/mm3 (0.0-0.4) 08/15/17 13:11 Baso # 0.0 K/mm3 (0.0-0.1) 08/15/17 13:11 Seg Neutrophils % 82.2 % (40.0-70.0) H 08/15/17 13:11 Seg Neutrophils # 7.1 K/mm3 (1.8-7.7) 08/15/17 13:11 PT 13.8 Sec. (12.2-14.9) 08/15/17 13:11 INR 1.01 (0.87-1.13) 08/15/17 13:11 VBG pH 7.392 (7.320-7.420) 08/15/17 13:11 Sodium 135 mmol/L (137-145) L 08/15/17 13:11 Potassium 3.1 mmol/L (3.6-5.0) L 08/15/17 13:11 Chloride 91.1 mmol/L (98-107) L 08/15/17 13:11 Carbon Dioxide 24 mmol/L (22-30) 08/15/17 13:11 Anion Gap 23 mmol/L 08/15/17 13:11 BUN 36 mg/dL (7-17) H 08/15/17 13:11 Creatinine 12.6 mg/dL (0.7-1.2) H 08/15/17 13:11 Estimated GFR 4 ml/min 08/15/17 13:11 BUN/Creatinine Ratio 3 % 08/15/17 13:11 Glucose 237 mg/dL (65-100) H 08/15/17 13:11 Lactic Acid 2.10 mmol/L (0.7-2.0) H* 08/15/17 18:43 Calcium 8.6 mg/dL (8.4-10.2) 08/15/17 13:11 Total Bilirubin 0.20 mg/dL (0.1-1.2) 08/15/17 13:11 AST 11 units/L (5-40) 08/15/17 13:11 ALT 6 units/L (7-56) L 08/15/17 13:11 Alkaline Phosphatase 90 units/L (35-129) 08/15/17 13:11 Total Protein 7.9 g/dL (6.3-8.2) 08/15/17 13:11 Albumin 3.0 g/dL (3.9-5) L 08/15/17 13:11 Albumin/Globulin Ratio 0.6 % 08/15/17 13:11 Assessment and Plan Advance Directives: Yes (Full code) VTE prophylaxis?: Chemical Plan of care discussed with patient/family: Yes - Patient Problems (1) Bacteremia Current Visit: Yes Status: Acute Plan to address problem: Culture reports not available Requested from [facility] [place] Possible MRSA will treat with Vanco and IV Levaquin (2) Infection, dialysis vascular access Current Visit: Yes Status: Acute Plan to address problem: Same as above (3) ESRD (end stage renal disease) on dialysis Current Visit: Yes Status: Chronic Plan to address problem: Cont HD (4) Anemia in end-stage renal disease Current Visit: No Status: Chronic Plan to address problem: [place] (5) Hypokalemia Current Visit: Yes Status: Acute Plan to address problem: Supplemented (6) HTN (hypertension) Current Visit: Yes Status: Chronic Qualifiers: Hypertension type: essential hypertension Qualified Code(s): I10 - Essential (primary) hypertension Plan to address problem: Cont Antihypertensives (7) T2DM (type 2 diabetes mellitus) Current Visit: Yes Status: Chronic Qualifiers: 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 Will defer to Hospitalist team Check a1c (8) DVT prophylaxis Current Visit: No Status: Acute Plan to address problem: Heparin
[2017-08-15] MEDS ORDERED: LEVAQUIN 750MG/150ML 750 MG/150 ML BAG IV SCH (23:00)
[2017-08-15] MEDS ORDERED: VANCOMYCIN PHARMACY TO DOSE IV SCH (23:00)
[2017-08-15] MEDS ORDERED: LEVAQUIN 750MG/150ML 750 MG/150 ML BAG IV ONE (23:00)
[2017-08-16] MEDS: LOPRESSOR PO SCH ×3 (00:29→22:08)
[2017-08-16] MEDS: CATAPRES PO SCH ×3 (00:30→22:09)
[2017-08-16] MEDS ORDERED: K-DUR PO ONE (06:18)
--- NOTE | 2017-08-16 09:22 | Consultation ---
History of Present Illness - Reason for Consult Consult date: 08/16/17 ?bacteremia Requesting physician: HANS ORTA - History of Present Illness 42 years old female with history of end-stage disease on hemodialysis at home; admitted on 08/15/2017 after being called home due to positive blood cultures. Patient was admitted to [facility] a week ago due to fever. It seems like during dialysis at home patient dialysis catheter came out and she pushed it in, 4 hours after that she spiked a fever 103. At [facility] her blood cultures became positive. By the time blood cultures became positive, she have already left AMA because her dialysis doctor had no privileges there. Denies any drainage from dialysis catheter, nausea, vomiting , diarrhea. Denies any respiratory symptoms. In the ED, initial temperature was 99, heart rate 1:15, respiration 18, O2 sat 100, blood pressure 187/109. Initial white count 8.6. Hemoglobin 8.4. Platelets 200. Creatinine 12. Lactic acid 2.5. Microbiology: Blood cultures: 08/15 pending Current Antimicrobials: levaqtamir mckeon Previous Antimicrobials: Past History Past Medical History: ESRD, hypertension, other Past Surgical History: cholecystectomy, Other (HD access a month ago) Social history: no significant social history Family history: no significant family history Medications and Allergies Allergies Allergy/AdvReac Type Severity Reaction Status Date / Time warfarin sodium Allergy Hives Verified 07/28/17 15:38 [From Coumadin] Home Medications Medication Instructions Recorded Confirmed Last Taken Type glipiZIDE [glipiZIDE XL] 10 mg PO BID 07/04/13 08/15/17 07/27/17 History Sevelamer Carbonate [Renvela] 400 mg PO TID 04/25/14 08/15/17 12/04/16 History Acetaminophen [Tylenol Extra 500 mg PO DAILY PRN 07/28/17 08/15/17 07/28/17 History Strength] Aspirin [Low Dose Aspirin EC] 81 mg PO DAILY 07/28/17 08/15/17 07/28/17 History Metoprolol [Lopressor TAB] 50 mg PO BID 07/28/17 08/15/17 07/27/17 History cloNIDine [Catapres] 0.2 mg PO DAILY 07/28/17 08/15/17 07/27/17 History Active Meds: Active Medications Acetaminophen (Tylenol) 500 mg PO DAILY PRN PRN Reason: Pain Aspirin (Halfprin Ec) 81 mg PO DAILY [facility] Clonidine HCl (Catapres) 0.2 mg PO Q12HR [facility] Last Admin: 08/16/17 00:30 Dose: 0.2 mg Glipizide (Glucotrol Xl) 10 mg PO QDDIAB [facility] Levofloxacin/Dextrose (Levaquin 500mg/100ml) 500 mg in 100 mls @ 100 mls/hr IV Q48HR [facility]; Protocol Insulin Human Lispro (Humalog) 0 unit SUB-Q ACHS [facility]; Protocol Metoprolol Tartrate (Lopressor) 50 mg PO BID [facility] Last Admin: 08/16/17 00:29 Dose: 50 mg Sevelamer Carbonate (Renvela) 400 mg PO TIDWM [facility] Vancomycin HCl (Vancomycin Pharmacy To Dose) 1 each IV PKCONSULT [facility]; Protocol Review of Systems All systems: negative (as per HPI, rest of 10 point review of systems negative) Physical Examination - Physical Exam Narrative exam: General appearance: Alert in NAD, conversant, obese Eyes: anicteric sclerae, moist conjunctivae; no lid-lag; PERRLA HENT: Atraumatic; oropharynx clear Neck: Trachea midline; supple, no thyromegaly or lymphadenopathy Lungs: CTA, with normal respiratory effort and no intercostal retractions CV: RRR, no murmurs Abdomen: Soft, non-tender; no masses or hepatosplenomegaly Extremities: No peripheral edema or extremity lymphadenopathy Skin: Normal temperature, turgor and texture; no rash, ulcers or subcutaneous nodules Psych: Appropriate affect, alert and oriented to person, place and time. Neuro: alert and oriented x 3. Moving all extermities Lines: right AVF, left SC HD access - Constitutional Vitals: Vital Signs Temp Pulse Resp BP Pulse Ox 97.6 F 91 H 20 127/70 98 08/16/17 07:55 08/16/17 07:55 08/16/17 07:55 08/16/17 07:55 08/16/17 07:55 Temperature -Last 24 Hours Temperature 97.6 F Temperature 100.1 F Temperature 99.2 F Temperature 99.2 F Temperature 97.9 F Temperature 99 F Results - Labs CBC & Chem 7: 08/15/17 13:11 08/15/17 13:11 Labs: Abnormal lab results 08/15/17 08/15/17 08/15/17 Range/Units 13:11 13:11 15:30 RBC 3.11 L (3.65-5.03) M/mm3 Hgb 8.4 L (10.1-14.3) gm/dl Hct 25.5 L (30.3-42.9) % MCH 27 L (28-32) pg RDW 18.5 H (13.2-15.2) % Lymph % (Auto) 8.0 L (13.4-35.0) % [place] % (Auto) 8.5 H (0.0-7.3) % Lymph # 0.7 L (1.2-5.4) K/mm3 Seg Neutrophils % 82.2 H (40.0-70.0) % Sodium 135 L (137-145) mmol/L Potassium 3.1 L (3.6-5.0) mmol/L Chloride 91.1 L (98-107) mmol/L BUN 36 H (7-17) mg/dL Creatinine 12.6 H (0.7-1.2) mg/dL Glucose 237 H (65-100) mg/dL POC Glucose (70-105) Lactic Acid 2.50 H* (0.7-2.0) mmol/L ALT 6 L (7-56) units/L Albumin 3.0 L (3.9-5) g/dL 08/15/17 08/15/17 08/16/17 Range/Units 17:58 18:43 08:18 RBC (3.65-5.03) M/mm3 Hgb (10.1-14.3) gm/dl Hct (30.3-42.9) % MCH (28-32) pg RDW (13.2-15.2) % Lymph % (Auto) (13.4-35.0) % [place] % (Auto) (0.0-7.3) % Lymph # (1.2-5.4) K/mm3 Seg Neutrophils % (40.0-70.0) % Sodium (137-145) mmol/L Potassium (3.6-5.0) mmol/L Chloride (98-107) mmol/L BUN (7-17) mg/dL Creatinine (0.7-1.2) mg/dL Glucose (65-100) mg/dL POC Glucose 236 H (70-105) Lactic Acid 2.30 H* 2.10 H* (0.7-2.0) mmol/L ALT (7-56) units/L Albumin (3.9-5) g/dL Assessment and Plan Assessment: 1) Presumed catheter-associated bacteremia: unknown etiology -HD cath was removed at [facility] -new HD cath placed 2) ESRD on HD 3) DM 4) HTN Plan: -follow-up [facility] blood cultures-request records -stop levaquin -start cefepime renally dosed -continue vancomycin IV renally dosed Thank you for your consultation, will follow up with you. Constanza Shannon MD Infectious Diseases Specialist [facility] ([facility]) M [phone] O [phone]
[2017-08-16] MEDS: RENVELA PO SCH ×3 (09:47→17:05)
[2017-08-16] MEDS: GLUCOTROL XL PO SCH (09:48)
[2017-08-16] MEDS: HumaLOG SUB-Q SCH ×4 (09:48→23:29)
[2017-08-16 10:39] LABS: Basophils % (Auto) 0.4 % (0.0-1.8); Eosinophils # (Auto) 0.1 K/mm3 (0.0-0.4); Hematocrit 24.2 % (30.3-42.9); Hemoglobin 7.9 gm/dl (10.1-14.3); Lymphocytes # (Auto) 0.6 K/mm3 (1.2-5.4); Lymphocytes % (Auto) 8.1 % (13.4-35.0); Mean Corpuscular HGB Conc 33 % (30-34); Mean Corpuscular Hemoglobin 27 pg (28-32); Mean Corpuscular Volume 83 fl (79-97); Monocytes # (Auto) 0.5 K/mm3 (0.0-0.8); Monocytes % (Auto) 6.7 % (0.0-7.3); Platelet Count 205 K/mm3 (140-440); Red Blood Count 2.93 M/mm3 (3.65-5.03); Red Cell Distribution Width 18.3 % (13.2-15.2)
[2017-08-16 11:00] LABS: Calcium 8.2 mg/dL (8.4-10.2)
--- NOTE | 2017-08-16 11:06 | Consultation ---
History of Present Illness - Reason for Consult Consult date: 08/16/17 end stage renal disease Requesting physician: FELICITA RODRIGUEZ - History of Present Illness This is a 42 yo AAF with past medical history of hypertension, end-stage disease on home HD, via L IJ permcath. Patient presented to the ER after she received a call from [facility] where she was admitted last week after she noticed that her permcath fell out. She pushed it back in, however developed high degree fever with temp >103F. in [facility] pt received ABX treatment, and received new permcath, however pt left against medical advice. Pt was called from [facility] that she has positive blood culture and was instructed to come to ER. pt reports persistent fever, intermittent chills, denies SOB, CP, palpitations, n/v/d, abd pain, dysuria, melena. Renal consult is requested for management of ESRD/HD. pt does home HD on Mon/Tue/Dulce/Fri schedule usually, last HD was on 08/15 after leaving AMA from [facility]. Past History Past Medical History: ESRD, hypertension, other Past Surgical History: cholecystectomy, Other (HD access a month ago) Social history: no significant social history Family history: no significant family history Medications and Allergies Allergies Allergy/AdvReac Type Severity Reaction Status Date / Time warfarin sodium Allergy Hives Verified 07/28/17 15:38 [From Coumadin] Home Medications Medication Instructions Recorded Confirmed Last Taken Type glipiZIDE [glipiZIDE XL] 10 mg PO BID 07/04/13 08/15/17 07/27/17 History Sevelamer Carbonate [Renvela] 400 mg PO TID 04/25/14 08/15/17 12/04/16 History Acetaminophen [Tylenol Extra 500 mg PO DAILY PRN 07/28/17 08/15/17 07/28/17 History Strength] Aspirin [Low Dose Aspirin EC] 81 mg PO DAILY 07/28/17 08/15/17 07/28/17 History Metoprolol [Lopressor TAB] 50 mg PO BID 07/28/17 08/15/17 07/27/17 History cloNIDine [Catapres] 0.2 mg PO DAILY 07/28/17 08/15/17 07/27/17 History Active Meds: Active Medications Acetaminophen (Tylenol) 500 mg PO DAILY PRN PRN Reason: Pain Aspirin (Halfprin Ec) 81 mg PO DAILY [facility] Clonidine HCl (Catapres) 0.2 mg PO Q12HR [facility] Last Admin: 08/16/17 00:30 Dose: 0.2 mg Glipizide (Glucotrol Xl) 10 mg PO QDDIAB [facility] Last Admin: 08/16/17 09:48 Dose: 10 mg Cefepime HCl 2 gm/ Sodium (Chloride) 20 mls @ 20 mls/10 min IV Q24HR@1400 [facility]; Protocol Insulin Human Lispro (Humalog) 0 unit SUB-Q ACHS [facility]; Protocol Last Admin: 08/16/17 09:48 Dose: 3 unit Metoprolol Tartrate (Lopressor) 50 mg PO BID [facility] Last Admin: 08/16/17 00:29 Dose: 50 mg Sevelamer Carbonate (Renvela) 400 mg PO TIDWM [facility] Last Admin: 08/16/17 09:47 Dose: 400 mg Vancomycin HCl (Vancomycin Pharmacy To Dose) 1 each IV PKCONSULT [facility]; Protocol Review of Systems All systems: negative Constitutional: fever, chills, weakness Exam - Vital Signs Vital signs: Vital Signs Temp Pulse Resp BP Pulse Ox 99 F 115 H 18 187/109 100 08/15/17 12:32 08/15/17 12:32 08/15/17 12:32 08/15/17 12:32 08/15/17 12:32 - General Appearance General appearance: well-developed, well-nourished, appears stated age, obese EENT: ATNC, PERRL, mucous membranes moist Neck: Present: neck supple Respiratory: Clear to Ascultation Heart: regular, S1S2 Gastrointestinal: Present: normoactive bowel sounds, obese Integumentary: no rash, other (no edema ) Neurologic: no focal deficit, alert and oriented x3, strength 5/5, CN 3-12 intact Psychiatric: mood/affect appropriate, cooperative Results - Lab Results 08/16/17 09:59 08/16/17 09:59 Most recent lab results Calcium 8.2 mg/dL (8.4-10.2) L 08/16/17 09:59 Assessment and Plan - Patient Problems (1) Bacteremia Current Visit: Yes Status: Acute Plan to address problem: BCx result from [facility] requested, follow repeat BCx, cont ABXs as per ID recommendations. (2) ESRD (end stage renal disease) on dialysis Current Visit: Yes Status: Chronic Plan to address problem: Will cont maintenance HD on TTS schedule while inpatient. 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
--- NOTE | 2017-08-16 11:06 | Progress Note ---
<JULIO C ROSS - Last Filed: 08/16/17 10:56> Assessment and Plan Assessment and plan: Patient is 42 years old female history of end-stage disease on hemodialysis at home. Patient presented to the ER after she received a call from [facility] where she was admitted last week. sShe was told that she needed to go to the hospital because she still have infection in her blood. Patient stated that 1 week ago her dialysis catheter came out and she pushed it back in, and since then she started having high fever she went to [facility] and was admitted for infection receive antibiotic and she signed AGAINST MEDICAL ADVICE b/c her Vp Transportation was not on staff there Bacteremia Culture reports not available Requested from [facility], Possible MRSA will continut Vanccortney Leviris dc, cefepime initiated ID following Infection, dialysis vascular access Same as above ESRD (end stage renal disease) on dialysis Cont HD, Dr Padilla consulted Anemia in end-stage renal disease Epogen with HD Hypokalemia Supplemented HTN (hypertension) Cont Antihypertensives T2DM (type 2 diabetes mellitus) Cut down Glipizide to once a day b/c of danger of Hypoglycemia Patient may be discharged on LA Insulin and discontinue Glipizide totally b/c of erratic action. A1c 6.4 DVT prophylaxis Heparin History Interval history: Patient seen and examined. No complaints at this time. Labs and nursing notes reviewed. Hospitalist Physical - Constitutional Vitals: Temp Pulse Resp BP Pulse Ox 97.6 F 91 H 20 127/70 98 08/16/17 07:55 08/16/17 07:55 08/16/17 07:55 08/16/17 07:55 08/16/17 07:55 General appearance: Present: no acute distress, well-nourished, obese - EENT Eyes: Present: PERRL, EOM intact ENT: hearing intact, clear oral mucosa, dentition normal - Neck Neck: Present: supple, normal ROM - Respiratory Respiratory effort: normal Respiratory: bilateral: CTA - Cardiovascular Rhythm: regular Heart Sounds: Present: S1 & S2 - Extremities Extremities: no ischemia, No edema Extremity abnormal: edema (pedal 2+) - Abdominal General gastrointestinal: soft, non-tender, non-distended - Integumentary Integumentary: Present: clear, warm, dry - Psychiatric Psychiatric: appropriate mood/affect, intact judgment & insight - Neurologic Neurologic: CNII-XII intact, moves all extremities - Allied Health Allied health notes reviewed: nursing Results - Labs CBC & Chem 7: 08/16/17 09:59 08/15/17 13:11 Labs: Laboratory Last Values WBC 7.5 K/mm3 (4.5-11.0) 08/16/17 09:59 RBC 2.93 M/mm3 (3.65-5.03) L 08/16/17 09:59 Hgb 7.9 gm/dl (10.1-14.3) L 08/16/17 09:59 Hct 24.2 % (30.3-42.9) L 08/16/17 09:59 MCV 83 fl (79-97) 08/16/17 09:59 MCH 27 pg (28-32) L 08/16/17 09:59 MCHC 33 % (30-34) 08/16/17 09:59 RDW 18.3 % (13.2-15.2) H 08/16/17 09:59 Plt Count 205 K/mm3 (140-440) 08/16/17 09:59 Lymph % (Auto) 8.1 % (13.4-35.0) L 08/16/17 09:59 [place] % (Auto) 6.7 % (0.0-7.3) 08/16/17 09:59 Eos % (Auto) 1.0 % (0.0-4.3) 08/16/17 09:59 Baso % (Auto) 0.4 % (0.0-1.8) 08/16/17 09:59 Lymph # 0.6 K/mm3 (1.2-5.4) L 08/16/17 09:59 [place] # 0.5 K/mm3 (0.0-0.8) 08/16/17 09:59 Eos # 0.1 K/mm3 (0.0-0.4) 08/16/17 09:59 Baso # 0.0 K/mm3 (0.0-0.1) 08/16/17 09:59 Seg Neutrophils % 83.8 % (40.0-70.0) H 08/16/17 09:59 Seg Neutrophils # 6.3 K/mm3 (1.8-7.7) 08/16/17 09:59 PT 13.8 Sec. (12.2-14.9) 08/15/17 13:11 INR 1.01 (0.87-1.13) 08/15/17 13:11 VBG pH 7.392 (7.320-7.420) 08/15/17 13:11 Sodium 135 mmol/L (137-145) L 08/15/17 13:11 Potassium 3.1 mmol/L (3.6-5.0) L 08/15/17 13:11 Chloride 91.1 mmol/L (98-107) L 08/15/17 13:11 Carbon Dioxide 24 mmol/L (22-30) 08/15/17 13:11 Anion Gap 23 mmol/L 08/15/17 13:11 BUN 36 mg/dL (7-17) H 08/15/17 13:11 Creatinine 12.6 mg/dL (0.7-1.2) H 08/15/17 13:11 Estimated GFR 4 ml/min 08/15/17 13:11 BUN/Creatinine Ratio 3 % 08/15/17 13:11 Glucose 237 mg/dL (65-100) H 08/15/17 13:11 POC Glucose 236 (70-105) H 08/16/17 08:18 Hemoglobin A1c 6.4 % (4-6) H 08/16/17 09:59 Lactic Acid 2.10 mmol/L (0.7-2.0) H* 08/15/17 18:43 Calcium 8.6 mg/dL (8.4-10.2) 08/15/17 13:11 Total Bilirubin 0.20 mg/dL (0.1-1.2) 08/15/17 13:11 AST 11 units/L (5-40) 08/15/17 13:11 ALT 6 units/L (7-56) L 08/15/17 13:11 Alkaline Phosphatase 90 units/L (35-129) 08/15/17 13:11 Total Protein 7.9 g/dL (6.3-8.2) 08/15/17 13:11 Albumin 3.0 g/dL (3.9-5) L 08/15/17 13:11 Albumin/Globulin Ratio 0.6 % 08/15/17 13:11 <GRICELDA CORDERO M - Last Filed: 08/16/17 12:53> Assessment and Plan Assessment and plan: I saw and evaluated the patient. I agree with the findings and the plan of care as documented in the PA's progress note. Hospitalist Physical - Constitutional Vitals: Temp Pulse Resp BP Pulse Ox 97.6 F 91 H 20 127/70 98 08/16/17 07:55 08/16/17 11:09 08/16/17 07:55 08/16/17 11:09 08/16/17 07:55 Results - Labs CBC & Chem 7: 08/16/17 09:59 08/16/17 09:59 Labs: Laboratory Last Values WBC 7.5 K/mm3 (4.5-11.0) 08/16/17 09:59 RBC 2.93 M/mm3 (3.65-5.03) L 08/16/17 09:59 Hgb 7.9 gm/dl (10.1-14.3) L 08/16/17 09:59 Hct 24.2 % (30.3-42.9) L 08/16/17 09:59 MCV 83 fl (79-97) 08/16/17 09:59 MCH 27 pg (28-32) L 08/16/17 09:59 MCHC 33 % (30-34) 08/16/17 09:59 RDW 18.3 % (13.2-15.2) H 08/16/17 09:59 Plt Count 205 K/mm3 (140-440) 08/16/17 09:59 Lymph % (Auto) 8.1 % (13.4-35.0) L 08/16/17 09:59 [place] % (Auto) 6.7 % (0.0-7.3) 08/16/17 09:59 Eos % (Auto) 1.0 % (0.0-4.3) 08/16/17 09:59 Baso % (Auto) 0.4 % (0.0-1.8) 08/16/17 09:59 Lymph # 0.6 K/mm3 (1.2-5.4) L 08/16/17 09:59 [place] # 0.5 K/mm3 (0.0-0.8) 08/16/17 09:59 Eos # 0.1 K/mm3 (0.0-0.4) 08/16/17 09:59 Baso # 0.0 K/mm3 (0.0-0.1) 08/16/17 09:59 Seg Neutrophils % 83.8 % (40.0-70.0) H 08/16/17 09:59 Seg Neutrophils # 6.3 K/mm3 (1.8-7.7) 08/16/17 09:59 PT 13.8 Sec. (12.2-14.9) 08/15/17 13:11 INR 1.01 (0.87-1.13) 08/15/17 13:11 VBG pH 7.392 (7.320-7.420) 08/15/17 13:11 Sodium 135 mmol/L (137-145) L 08/16/17 09:59 Potassium 3.3 mmol/L (3.6-5.0) L 08/16/17 09:59 Chloride 91.4 mmol/L (98-107) L 08/16/17 09:59 Carbon Dioxide 23 mmol/L (22-30) 08/16/17 09:59 Anion Gap 24 mmol/L 08/16/17 09:59 BUN 40 mg/dL (7-17) H 08/16/17 09:59 Creatinine 13.9 mg/dL (0.7-1.2) H 08/16/17 09:59 Estimated GFR 4 ml/min 08/16/17 09:59 BUN/Creatinine Ratio 3 % 08/16/17 09:59 Glucose 158 mg/dL (65-100) H 08/16/17 09:59 POC Glucose 214 (70-105) H 08/16/17 12:44 Hemoglobin A1c 6.4 % (4-6) H 08/16/17 09:59 Lactic Acid 2.10 mmol/L (0.7-2.0) H* 08/15/17 18:43 Calcium 8.2 mg/dL (8.4-10.2) L 08/16/17 09:59 Total Bilirubin 0.20 mg/dL (0.1-1.2) 08/15/17 13:11 AST 11 units/L (5-40) 08/15/17 13:11 ALT 6 units/L (7-56) L 08/15/17 13:11 Alkaline Phosphatase 90 units/L (35-129) 08/15/17 13:11 Total Protein 7.9 g/dL (6.3-8.2) 08/15/17 13:11 Albumin 3.0 g/dL (3.9-5) L 08/15/17 13:11 Albumin/Globulin Ratio 0.6 % 08/15/17 13:11
[2017-08-16] MEDS: HALFPRIN EC PO SCH (11:07)
[2017-08-16] MEDS ORDERED: NACL 0.9% 100 ML IV PRN (11:14)
[2017-08-16] MEDS: MAXIPIME 2 GM in NACL 0.9% 20 ML IV SCH (15:06)
[2017-08-17] MEDS ORDERED: PROCRIT SUB-Q SCH (06:00)
[2017-08-17] MEDS: GLUCOTROL XL PO SCH (09:17)
[2017-08-17] MEDS: HumaLOG SUB-Q SCH ×4 (09:17→22:22)
[2017-08-17] MEDS: RENVELA PO SCH ×3 (09:19→16:59)
[2017-08-17 09:59] LABS: Basophils % (Auto) 0.2 % (0.0-1.8); Eosinophils # (Auto) 0.1 K/mm3 (0.0-0.4); Eosinophils % (Auto) 1.3 % (0.0-4.3); Hematocrit 22.8 % (30.3-42.9); Hemoglobin 7.5 gm/dl (10.1-14.3); Lymphocytes # (Auto) 0.8 K/mm3 (1.2-5.4); Lymphocytes % (Auto) 10.3 % (13.4-35.0); Mean Corpuscular HGB Conc 33 % (30-34); Mean Corpuscular Hemoglobin 27 pg (28-32); Mean Corpuscular Volume 83 fl (79-97); Monocytes # (Auto) 0.6 K/mm3 (0.0-0.8); Monocytes % (Auto) 7.6 % (0.0-7.3); Platelet Count 186 K/mm3 (140-440); Red Blood Count 2.76 M/mm3 (3.65-5.03); Red Cell Distribution Width 18.2 % (13.2-15.2)
[2017-08-17] MEDS ORDERED: LEVAQUIN 500MG/100ML 500 MG/100 ML BAG IV SCH (10:00)
[2017-08-17 10:13] LABS: Calcium 7.8 mg/dL (8.4-10.2)
--- NOTE | 2017-08-17 10:50 | Progress Note ---
Assessment and Plan Assessment: 1) Catheter-associated bacteremia: due to E faecalis -HD cath was removed at [facility] -new HD cath placed -E faecalis sen to amp/vvanco in blood cx on 08/12 at [facility] 2) ESRD on HD 3) DM 4) HTN Plan: -stop cefepime -get TTE -continue vancomycin IV renally dosed -upon discharge will do vancomycin 1 g IV q 48h on HD total 14 days until . May need to be extended if echo + for vegetations -ID clinic f/u in 1 week I am signing off Thank you for your consultation, will follow up with you. Constanza Shannon MD Infectious Diseases Specialist [facility] ([facility] M [phone] O [phone] Subjective Date of service: 08/17/17 Principal diagnosis: bacteremia Interval history: Feels ok, upset because she wants to go home. No fever. Microbiology: Blood cultures: 08/15 ngtd 08/12 E faecalis at [facility] Current Antimicrobials: levaquin vanco Previous Antimicrobials: Objective - Exam Narrative Exam: General appearance: Alert in NAD, conversant, obese Eyes: anicteric sclerae, moist conjunctivae; no lid-lag; PERRLA HENT: Atraumatic; oropharynx clear Neck: Trachea midline; supple, no thyromegaly or lymphadenopathy Lungs: CTA, with normal respiratory effort and no intercostal retractions CV: RRR, no murmurs Abdomen: Soft, non-tender; no masses or hepatosplenomegaly Extremities: No peripheral edema or extremity lymphadenopathy Skin: Normal temperature, turgor and texture; no rash, ulcers or subcutaneous nodules Psych: Appropriate affect, alert and oriented to person, place and time. Neuro: alert and oriented x 3. Moving all extermities Lines: right AVF, left SC HD access - Constitutional Vitals: Vital Signs Temp Pulse Resp BP Pulse Ox 98.5 F 84 22 108/60 98 08/17/17 07:53 08/17/17 07:53 08/17/17 07:53 08/17/17 07:53 08/17/17 07:53 Temperature -Last 24 Hours Temperature 98.5 F Temperature 97.7 F - Labs CBC & Chem 7: 08/17/17 09:39 08/17/17 09:39 Labs: Abnormal lab results 08/16/17 08/16/17 08/16/17 Range/Units 09:59 12:44 15:24 RBC (3.65-5.03) M/mm3 Hgb (10.1-14.3) gm/dl Hct (30.3-42.9) % MCH (28-32) pg RDW (13.2-15.2) % Lymph % (Auto) (13.4-35.0) % [place] % (Auto) (0.0-7.3) % Lymph # (1.2-5.4) K/mm3 Seg Neutrophils % (40.0-70.0) % Sodium 135 L (137-145) mmol/L Potassium 3.3 L (3.6-5.0) mmol/L Chloride 91.4 L (98-107) mmol/L Carbon Dioxide (22-30) mmol/L BUN 40 H (7-17) mg/dL Creatinine 13.9 H (0.7-1.2) mg/dL Glucose 158 H (65-100) mg/dL POC Glucose 214 H 203 H (70-105) Calcium 8.2 L (8.4-10.2) mg/dL 08/16/17 08/17/17 08/17/17 Range/Units 22:07 06:35 09:39 RBC 2.76 L (3.65-5.03) M/mm3 Hgb 7.5 L (10.1-14.3) gm/dl Hct 22.8 L (30.3-42.9) % MCH 27 L (28-32) pg RDW 18.2 H (13.2-15.2) % Lymph % (Auto) 10.3 L (13.4-35.0) % [place] % (Auto) 7.6 H (0.0-7.3) % Lymph # 0.8 L (1.2-5.4) K/mm3 Seg Neutrophils % 80.6 H (40.0-70.0) % Sodium (137-145) mmol/L Potassium (3.6-5.0) mmol/L Chloride (98-107) mmol/L Carbon Dioxide (22-30) mmol/L BUN (7-17) mg/dL Creatinine (0.7-1.2) mg/dL Glucose (65-100) mg/dL POC Glucose 191 H 239 H (70-105) Calcium (8.4-10.2) mg/dL 08/17/17 Range/Units 09:39 RBC (3.65-5.03) M/mm3 Hgb (10.1-14.3) gm/dl Hct (30.3-42.9) % MCH (28-32) pg RDW (13.2-15.2) % Lymph % (Auto) (13.4-35.0) % [place] % (Auto) (0.0-7.3) % Lymph # (1.2-5.4) K/mm3 Seg Neutrophils % (40.0-70.0) % Sodium 135 L (137-145) mmol/L Potassium (3.6-5.0) mmol/L Chloride 93.4 L (98-107) mmol/L Carbon Dioxide 21 L (22-30) mmol/L BUN 47 H (7-17) mg/dL Creatinine 15.0 H (0.7-1.2) mg/dL Glucose 144 H (65-100) mg/dL POC Glucose (70-105) Calcium 7.8 L (8.4-10.2) mg/dL
--- NOTE | 2017-08-17 11:20 | Progress Note ---
Assessment and Plan - Patient Problems (1) Bacteremia Current Visit: Yes Status: Acute Plan to address problem: BCx result from [facility] showed Enterococcus faecalis, cont ABXs as per ID recommendations with vanco. we will arrange vanco at pt's outpatient HD clinic (2) ESRD (end stage renal disease) on dialysis Current Visit: Yes Status: Chronic Plan to address problem: cont maintenance HD on TTS schedule. needs to be transitioned to incenter HD until she completes ABX treatment (3) Anemia in chronic illness Current Visit: Yes Status: Acute Plan to address problem: EPO with HD (4) HTN (hypertension) Current Visit: Yes Status: Chronic Qualifiers: Hypertension type: essential hypertension Qualified Code(s): I10 - Essential (primary) hypertension Plan to address problem: BP controlled (5) T2DM (type 2 diabetes mellitus) Current Visit: Yes Status: Chronic Qualifiers: Diabetes mellitus terminal superintendent insulin use: without assisted use Chronic kidney disease stage: on chronic dialysis Plan to address problem: glucose control as per primary attending Subjective Date of service: 08/17/17 Principal diagnosis: bacteremia Interval history: Pt awake, alert, in NAD, denies fever, chills, n/v/d Objective - Vital Signs Vital signs: Vital Signs - 12hr 08/17/17 07:53 Temperature 98.5 F Pulse Rate 84 Respiratory 22 Rate Blood Pressure 108/60 O2 Sat by Pulse 98 Oximetry - General Appearance General appearance: well-developed, well-nourished, appears stated age EENT: ATNC, PERRL, mucous membranes moist Neck: no JVD Respiratory: Present: Clear to Ascultation Cardiology: regular, S1S2 Gastrointestinal: normoactive bowel sounds Integumentary: no rash, other (no edema ) Neurologic: no focal deficit, alert and oriented x3, strength 5/5, CN 3-12 intact Psychiatric: mood/affect appropriate, cooperative - Lab 08/17/17 09:39 08/17/17 09:39 Most recent lab results Calcium 7.8 mg/dL (8.4-10.2) L 08/17/17 09:39
[2017-08-17] MEDS: LOPRESSOR PO SCH ×2 (11:28→22:23)
[2017-08-17] MEDS: CATAPRES PO SCH ×2 (11:29→22:23)
[2017-08-17] MEDS: HALFPRIN EC PO SCH (11:29)
--- NOTE | 2017-08-17 12:23 | Discharge Summary ---
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 Please fax results to [phone] and call [phone] for critical lab results. Constanza Queen Date: 08/17/17 Primary care physician: HOSPITAL CLEANER Hospitalization Condition: Stable Disposition: DC/TX-06 HOME UNDER HOME HL Time spent for discharge: 32 minutes Core Measure Documentation - Palliative Care Palliative Care/ Comfort Measures: Not Applicable - Core Measures Any of the following diagnoses?: none Exam - Constitutional Vitals: Temp Pulse Resp BP Pulse Ox 98.5 F 84 22 108/60 98 08/17/17 07:53 08/17/17 07:53 08/17/17 07:53 08/17/17 07:53 08/17/17 07:53 General appearance: Present: no acute distress, well-nourished - EENT Eyes: Present: PERRL ENT: hearing intact, clear oral mucosa - Neck Neck: Present: supple, normal ROM - Respiratory Respiratory effort: normal Respiratory: bilateral: CTA - Cardiovascular Heart Sounds: Present: S1 & S2. Absent: rub, click - Extremities Extremities: pulses symmetrical, No edema Peripheral Pulses: within normal limits - Abdominal General gastrointestinal: Present: soft, non-tender, non-distended, normal bowel sounds Female genitourinary: Present: normal - Integumentary Integumentary: Present: clear, warm, dry - Musculoskeletal Musculoskeletal: gait normal, strength equal bilaterally - Psychiatric Psychiatric: appropriate mood/affect, intact judgment & insight - Neurologic Neurologic: CNII-XII intact, moves all extremities Plan Follow up with: PRIMARY CARE, [Primary Care Provider] - 3-5 Days LIN ECHEVERRIA MD [Staff Physician] - 14 Days Pending Studies Discharge pending negative Echo results for vegetation, HD and outpatient abx arrangements
--- NOTE | 2017-08-17 12:23 | Progress Note ---
<JULIO C ROSS - Last Filed: 08/17/17 12:20> Assessment and Plan Assessment and plan: Patient is 42 years old female history of end-stage disease on hemodialysis at home. Patient presented to the ER after she received a call from [facility] where she was admitted last week. sShe was told that she needed to go to the hospital because she still have infection in her blood. Patient stated that 1 week ago her dialysis catheter came out and she pushed it back in, and since then she started having high fever she went to [facility] and was admitted for infection receive antibiotic and she signed AGAINST MEDICAL ADVICE b/c her Property Economist was not on staff there Bacteremia Culture reports from [facility] showed Enterococcus faecalis will continut Vanco outpatient per ID, cefepime dc ID following Infection, dialysis vascular access Same as above, replaced at [facility] ESRD (end stage renal disease) on dialysis Cont HD on TTS schedule, Dr Padilla following Anemia in end-stage renal disease Epogen with HD Hypokalemia Will be corrected with HD HTN (hypertension) Cont Antihypertensives T2DM (type 2 diabetes mellitus) Cut down Glipizide to once a day b/c of danger of Hypoglycemia Patient may be discharged on LA Insulin and discontinue Glipizide totally b/c of erratic action. A1c 6.4 DVT prophylaxis Heparin History Interval history: Patient seen and examined. No complaints at this time. Labs and nursing notes reviewed. Hospitalist Physical - Constitutional Vitals: Temp Pulse Resp BP Pulse Ox 98.5 F 84 22 108/60 98 08/17/17 07:53 08/17/17 07:53 08/17/17 07:53 08/17/17 07:53 08/17/17 07:53 General appearance: Present: no acute distress, well-nourished, obese - EENT Eyes: Present: PERRL, EOM intact ENT: hearing intact, clear oral mucosa - Neck Neck: Present: supple, normal ROM - Respiratory Respiratory effort: normal Respiratory: bilateral: CTA - Cardiovascular Rhythm: regular Heart Sounds: Present: S1 & S2. Absent: rub, click - Extremities Extremities: no ischemia, pulses intact, No edema - Abdominal General gastrointestinal: soft, non-tender, non-distended - Integumentary Integumentary: Present: clear, warm, dry - Psychiatric Psychiatric: appropriate mood/affect, intact judgment & insight, cooperative - Neurologic Neurologic: CNII-XII intact, moves all extremities - Allied Health Allied health notes reviewed: nursing Results - Labs CBC & Chem 7: 08/17/17 09:39 08/17/17 09:39 Labs: Laboratory Last Values WBC 7.7 K/mm3 (4.5-11.0) 08/17/17 09:39 RBC 2.76 M/mm3 (3.65-5.03) L 08/17/17 09:39 Hgb 7.5 gm/dl (10.1-14.3) L 08/17/17 09:39 Hct 22.8 % (30.3-42.9) L 08/17/17 09:39 MCV 83 fl (79-97) 08/17/17 09:39 MCH 27 pg (28-32) L 08/17/17 09:39 MCHC 33 % (30-34) 08/17/17 09:39 RDW 18.2 % (13.2-15.2) H 08/17/17 09:39 Plt Count 186 K/mm3 (140-440) 08/17/17 09:39 Lymph % (Auto) 10.3 % (13.4-35.0) L 08/17/17 09:39 [place] % (Auto) 7.6 % (0.0-7.3) H 08/17/17 09:39 Eos % (Auto) 1.3 % (0.0-4.3) 08/17/17 09:39 Baso % (Auto) 0.2 % (0.0-1.8) 08/17/17 09:39 Lymph # 0.8 K/mm3 (1.2-5.4) L 08/17/17 09:39 [place] # 0.6 K/mm3 (0.0-0.8) 08/17/17 09:39 Eos # 0.1 K/mm3 (0.0-0.4) 08/17/17 09:39 Baso # 0.0 K/mm3 (0.0-0.1) 08/17/17 09:39 Seg Neutrophils % 80.6 % (40.0-70.0) H 08/17/17 09:39 Seg Neutrophils # 6.2 K/mm3 (1.8-7.7) 08/17/17 09:39 PT 13.8 Sec. (12.2-14.9) 08/15/17 13:11 INR 1.01 (0.87-1.13) 08/15/17 13:11 VBG pH 7.392 (7.320-7.420) 08/15/17 13:11 Sodium 135 mmol/L (137-145) L 08/17/17 09:39 Potassium 3.7 mmol/L (3.6-5.0) 08/17/17 09:39 Chloride 93.4 mmol/L (98-107) L 08/17/17 09:39 Carbon Dioxide 21 mmol/L (22-30) L 08/17/17 09:39 Anion Gap 24 mmol/L 08/17/17 09:39 BUN 47 mg/dL (7-17) H 08/17/17 09:39 Creatinine 15.0 mg/dL (0.7-1.2) H 08/17/17 09:39 Estimated GFR 3 ml/min 08/17/17 09:39 BUN/Creatinine Ratio 3 % 08/17/17 09:39 Glucose 144 mg/dL (65-100) H 08/17/17 09:39 POC Glucose 142 (70-105) H 08/17/17 11:52 Hemoglobin A1c 6.4 % (4-6) H 08/16/17 09:59 Lactic Acid 2.10 mmol/L (0.7-2.0) H* 08/15/17 18:43 Calcium 7.8 mg/dL (8.4-10.2) L 08/17/17 09:39 Total Bilirubin 0.20 mg/dL (0.1-1.2) 08/15/17 13:11 AST 11 units/L (5-40) 08/15/17 13:11 ALT 6 units/L (7-56) L 08/15/17 13:11 Alkaline Phosphatase 90 units/L (35-129) 08/15/17 13:11 Total Protein 7.9 g/dL (6.3-8.2) 08/15/17 13:11 Albumin 3.0 g/dL (3.9-5) L 08/15/17 13:11 Albumin/Globulin Ratio 0.6 % 08/15/17 13:11 <CARL PATE E - Last Filed: 08/18/17 06:56> Assessment and Plan Assessment and plan: I saw and evaluated the patient. I agree with the findings and the plan of care as documented in the physician educational assistant teacher's~note, with the following corrections and additions. Hospitalist Physical - Constitutional Vitals: Temp Pulse Resp BP Pulse Ox 98.0 F 106 H 18 148/95 98 08/17/17 16:15 08/17/17 22:23 08/17/17 16:15 08/17/17 22:23 08/17/17 09:35 Results - Labs CBC & Chem 7: 08/17/17 09:39 08/17/17 09:39 Labs: Laboratory Last Values WBC 7.7 K/mm3 (4.5-11.0) 08/17/17 09:39 RBC 2.76 M/mm3 (3.65-5.03) L 08/17/17 09:39 Hgb 7.5 gm/dl (10.1-14.3) L 08/17/17 09:39 Hct 22.8 % (30.3-42.9) L 08/17/17 09:39 MCV 83 fl (79-97) 08/17/17 09:39 MCH 27 pg (28-32) L 08/17/17 09:39 MCHC 33 % (30-34) 08/17/17 09:39 RDW 18.2 % (13.2-15.2) H 08/17/17 09:39 Plt Count 186 K/mm3 (140-440) 08/17/17 09:39 Lymph % (Auto) 10.3 % (13.4-35.0) L 08/17/17 09:39 [place] % (Auto) 7.6 % (0.0-7.3) H 08/17/17 09:39 Eos % (Auto) 1.3 % (0.0-4.3) 08/17/17 09:39 Baso % (Auto) 0.2 % (0.0-1.8) 08/17/17 09:39 Lymph # 0.8 K/mm3 (1.2-5.4) L 08/17/17 09:39 [place] # 0.6 K/mm3 (0.0-0.8) 08/17/17 09:39 Eos # 0.1 K/mm3 (0.0-0.4) 08/17/17 09:39 Baso # 0.0 K/mm3 (0.0-0.1) 08/17/17 09:39 Seg Neutrophils % 80.6 % (40.0-70.0) H 08/17/17 09:39 Seg Neutrophils # 6.2 K/mm3 (1.8-7.7) 08/17/17 09:39 PT 13.8 Sec. (12.2-14.9) 08/15/17 13:11 INR 1.01 (0.87-1.13) 08/15/17 13:11 VBG pH 7.392 (7.320-7.420) 08/15/17 13:11 Sodium 135 mmol/L (137-145) L 08/17/17 09:39 Potassium 3.7 mmol/L (3.6-5.0) 08/17/17 09:39 Chloride 93.4 mmol/L (98-107) L 08/17/17 09:39 Carbon Dioxide 21 mmol/L (22-30) L 08/17/17 09:39 Anion Gap 24 mmol/L 08/17/17 09:39 BUN 47 mg/dL (7-17) H 08/17/17 09:39 Creatinine 15.0 mg/dL (0.7-1.2) H 08/17/17 09:39 Estimated GFR 3 ml/min 08/17/17 09:39 BUN/Creatinine Ratio 3 % 08/17/17 09:39 Glucose 144 mg/dL (65-100) H 08/17/17 09:39 POC Glucose 175 (70-105) H 08/18/17 05:44 Hemoglobin A1c 6.4 % (4-6) H 08/16/17 09:59 Lactic Acid 2.10 mmol/L (0.7-2.0) H* 08/15/17 18:43 Calcium 7.8 mg/dL (8.4-10.2) L 08/17/17 09:39 Total Bilirubin 0.20 mg/dL (0.1-1.2) 08/15/17 13:11 AST 11 units/L (5-40) 08/15/17 13:11 ALT 6 units/L (7-56) L 08/15/17 13:11 Alkaline Phosphatase 90 units/L (35-129) 08/15/17 13:11 Total Protein 7.9 g/dL (6.3-8.2) 08/15/17 13:11 Albumin 3.0 g/dL (3.9-5) L 08/15/17 13:11 Albumin/Globulin Ratio 0.6 % 08/15/17 13:11 Random Vancomycin 23.8 ug/mL (0-40.0) 08/18/17 05:27 Hepatitis A IgM Ab Non-reactive (NonReactive) 08/17/17 14:55 Hep Bs Antigen Non-reactive (Negative) 08/17/17 14:55 Hep B Core IgM Ab Non-reactive (NonReactive) 08/17/17 14:55 Hepatitis C Antibody Reactive (NonReactive) A 08/17/17 14:55 Blood Type A POSITIVE 08/17/17 16:00 Antibody Screen Negative 08/17/17 16:00
[2017-08-17] MEDS ORDERED: NACL 0.9% 100 ML IV PRN (14:53)
[2017-08-17 15:34] LABS: Hepatitis A Antibody IgM Non-Reactive (NonReactive); Hepatitis B Core IgM Non-Reactive (NonReactive); Hepatitis B Surface Antigen Non-Reactive (Negative); Hepatitis C Virus Antibody Reactive (NonReactive)
[2017-08-17] MEDS: MAXIPIME 2 GM in NACL 0.9% 20 ML IV SCH (17:01)
[2017-08-18] MEDS: HumaLOG SUB-Q SCH ×4 (07:30→22:49)
[2017-08-18] MEDS: RENVELA PO SCH ×4 (08:00→18:30)
[2017-08-18] MEDS ORDERED: SUBLIMAZE IV ONE (09:23)
[2017-08-18] MEDS ORDERED: VERSED IV ONE ×2 (09:23→11:23)
[2017-08-18] MEDS ORDERED: HURRICAINE ONE 20% TOPICAL SPRAY MM NR (10:00)
[2017-08-18] MEDS ORDERED: SUBLIMAZE ONE (11:24)
[2017-08-18] MEDS ORDERED: HURRICAINE ONE 20% TOPICAL SPRAY MM (11:24)
--- NOTE | 2017-08-18 11:33 | Progress Note ---
<JULIO C ROSS - Last Filed: 08/18/17 11:31> Assessment and Plan Assessment and plan: Patient is 42 years old female history of end-stage disease on hemodialysis at home. Patient presented to the ER after she received a call from [facility] where she was admitted last week. sShe was told that she needed to go to the hospital because she still have infection in her blood. Patient stated that 1 week ago her dialysis catheter came out and she pushed it back in, and since then she started having high fever she went to [facility] and was admitted for infection receive antibiotic and she signed AGAINST MEDICAL ADVICE b/c her Washer Blanket was not on staff there Bacteremia Culture reports from [facility] showed Enterococcus faecalis will continue Vanco outpatient per ID, TTE results pending, ARLIN ordered to rule out RA vegetation ID following Infection, dialysis vascular access Same as above, replaced at [facility] ESRD (end stage renal disease) on dialysis Cont HD on TTS schedule, Dr Padilla following Anemia in end-stage renal disease Epogen with HD Hypokalemia Will be corrected with HD HTN (hypertension) Cont Antihypertensives T2DM (type 2 diabetes mellitus) Cut down Glipizide to once a day b/c of danger of Hypoglycemia Patient may be discharged on LA Insulin and discontinue Glipizide totally b/c of erratic action. A1c 6.4 DVT prophylaxis Heparin History Interval history: Patient seen and examined. No complaints at this time. Labs and nursing notes reviewed. Hospitalist Physical - Constitutional Vitals: Temp Pulse Resp BP Pulse Ox 99.0 F 93 H 20 138/74 97 08/18/17 07:37 08/18/17 07:37 08/18/17 07:37 08/18/17 07:37 08/18/17 07:37 General appearance: Present: no acute distress, well-nourished - EENT Eyes: Present: PERRL, EOM intact ENT: hearing intact, clear oral mucosa - Neck Neck: Present: supple, normal ROM - Respiratory Respiratory effort: normal Respiratory: bilateral: CTA - Cardiovascular Rhythm: regular Heart Sounds: Present: S1 & S2 - Extremities Extremities: no ischemia, No edema - Abdominal General gastrointestinal: soft, non-tender, non-distended - Integumentary Integumentary: Present: clear, warm, dry - Psychiatric Psychiatric: appropriate mood/affect, intact judgment & insight, cooperative - Neurologic Neurologic: CNII-XII intact, moves all extremities - Allied Health Allied health notes reviewed: nursing Results - Labs CBC & Chem 7: 08/17/17 09:39 08/17/17 09:39 Labs: Laboratory Last Values WBC 7.7 K/mm3 (4.5-11.0) 08/17/17 09:39 RBC 2.76 M/mm3 (3.65-5.03) L 08/17/17 09:39 Hgb 7.5 gm/dl (10.1-14.3) L 08/17/17 09:39 Hct 22.8 % (30.3-42.9) L 08/17/17 09:39 MCV 83 fl (79-97) 08/17/17 09:39 MCH 27 pg (28-32) L 08/17/17 09:39 MCHC 33 % (30-34) 08/17/17 09:39 RDW 18.2 % (13.2-15.2) H 08/17/17 09:39 Plt Count 186 K/mm3 (140-440) 08/17/17 09:39 Lymph % (Auto) 10.3 % (13.4-35.0) L 08/17/17 09:39 Addison % (Auto) 7.6 % (0.0-7.3) H 08/17/17 09:39 Eos % (Auto) 1.3 % (0.0-4.3) 08/17/17 09:39 Baso % (Auto) 0.2 % (0.0-1.8) 08/17/17 09:39 Lymph # 0.8 K/mm3 (1.2-5.4) L 08/17/17 09:39 Addison # 0.6 K/mm3 (0.0-0.8) 08/17/17 09:39 Eos # 0.1 K/mm3 (0.0-0.4) 08/17/17 09:39 Baso # 0.0 K/mm3 (0.0-0.1) 08/17/17 09:39 Seg Neutrophils % 80.6 % (40.0-70.0) H 08/17/17 09:39 Seg Neutrophils # 6.2 K/mm3 (1.8-7.7) 08/17/17 09:39 PT 13.8 Sec. (12.2-14.9) 08/15/17 13:11 INR 1.01 (0.87-1.13) 08/15/17 13:11 VBG pH 7.392 (7.320-7.420) 08/15/17 13:11 Sodium 135 mmol/L (137-145) L 08/17/17 09:39 Potassium 3.7 mmol/L (3.6-5.0) 08/17/17 09:39 Chloride 93.4 mmol/L (98-107) L 08/17/17 09:39 Carbon Dioxide 21 mmol/L (22-30) L 08/17/17 09:39 Anion Gap 24 mmol/L 08/17/17 09:39 BUN 47 mg/dL (7-17) H 08/17/17 09:39 Creatinine 15.0 mg/dL (0.7-1.2) H 08/17/17 09:39 Estimated GFR 3 ml/min 08/17/17 09:39 BUN/Creatinine Ratio 3 % 08/17/17 09:39 Glucose 144 mg/dL (65-100) H 08/17/17 09:39 POC Glucose 175 (70-105) H 08/18/17 05:44 Hemoglobin A1c 6.4 % (4-6) H 08/16/17 09:59 Lactic Acid 2.10 mmol/L (0.7-2.0) H* 08/15/17 18:43 Calcium 7.8 mg/dL (8.4-10.2) L 08/17/17 09:39 Total Bilirubin 0.20 mg/dL (0.1-1.2) 08/15/17 13:11 AST 11 units/L (5-40) 08/15/17 13:11 ALT 6 units/L (7-56) L 08/15/17 13:11 Alkaline Phosphatase 90 units/L (35-129) 08/15/17 13:11 Total Protein 7.9 g/dL (6.3-8.2) 08/15/17 13:11 Albumin 3.0 g/dL (3.9-5) L 08/15/17 13:11 Albumin/Globulin Ratio 0.6 % 08/15/17 13:11 Random Vancomycin 23.8 ug/mL (0-40.0) 08/18/17 05:27 Hepatitis A IgM Ab Non-reactive (NonReactive) 08/17/17 14:55 Hep Bs Antigen Non-reactive (Negative) 08/17/17 14:55 Hep B Core IgM Ab Non-reactive (NonReactive) 08/17/17 14:55 Hepatitis C Antibody Reactive (NonReactive) A 08/17/17 14:55 Blood Type A POSITIVE 08/17/17 16:00 Antibody Screen Negative 08/17/17 16:00 <CARL PATE - Last Filed: 08/18/17 22:27> Assessment and Plan Assessment and plan: I saw and evaluated the patient. I agree with the findings and the plan of care as documented in the PA's~note, with the following corrections and additions. Discussed with cardiology and Dr Queen of ID. Patient on ARLIN showing a large vegetation at the tip of the HD cath. Per record patient has had multiple cath and appears to have become infected recently with a report of E.Feacalis growing at [facility] on 08/12. Vascular consult is obtained, for replacement of access. Patient will need 6 weeks of IV abx per ID. Will discuss further if any further invasive surgery is required. Patient advised on findings Morbid obesity- Patient advised about weightloss. 15 mins counselling provided. Hospitalist Physical - Constitutional Vitals: Temp Pulse Resp BP Pulse Ox 98.8 F 91 H 20 147/102 100 08/18/17 21:15 08/18/17 21:15 08/18/17 21:15 08/18/17 21:15 08/18/17 21:15 Results - Labs CBC & Chem 7: 08/18/17 15:16 08/18/17 15:16 Labs: Laboratory Last Values WBC 7.8 K/mm3 (4.5-11.0) 08/18/17 15:16 RBC 2.77 M/mm3 (3.65-5.03) L 08/18/17 15:16 Hgb 7.3 gm/dl (10.1-14.3) L 08/18/17 15:16 Hct 23.5 % (30.3-42.9) L 08/18/17 15:16 MCV 85 fl (79-97) 08/18/17 15:16 MCH 27 pg (28-32) L 08/18/17 15:16 MCHC 31 % (30-34) 08/18/17 15:16 RDW 18.2 % (13.2-15.2) H 08/18/17 15:16 Plt Count 188 K/mm3 (140-440) 08/18/17 15:16 Lymph % (Auto) 7.3 % (13.4-35.0) L 08/18/17 15:16 Addison % (Auto) 6.1 % (0.0-7.3) 08/18/17 15:16 Eos % (Auto) 0.8 % (0.0-4.3) 08/18/17 15:16 Baso % (Auto) 0.4 % (0.0-1.8) 08/18/17 15:16 Lymph # 0.6 K/mm3 (1.2-5.4) L 08/18/17 15:16 Addison # 0.5 K/mm3 (0.0-0.8) 08/18/17 15:16 Eos # 0.1 K/mm3 (0.0-0.4) 08/18/17 15:16 Baso # 0.0 K/mm3 (0.0-0.1) 08/18/17 15:16 Seg Neutrophils % 85.4 % (40.0-70.0) H 08/18/17 15:16 Seg Neutrophils # 6.7 K/mm3 (1.8-7.7) 08/18/17 15:16 PT 13.8 Sec. (12.2-14.9) 08/15/17 13:11 INR 1.01 (0.87-1.13) 08/15/17 13:11 VBG pH 7.392 (7.320-7.420) 08/15/17 13:11 Sodium 134 mmol/L (137-145) L 08/18/17 15:16 Potassium 3.8 mmol/L (3.6-5.0) 08/18/17 15:16 Chloride 94.8 mmol/L (98-107) L 08/18/17 15:16 Carbon Dioxide 22 mmol/L (22-30) 08/18/17 15:16 Anion Gap 21 mmol/L 08/18/17 15:16 BUN 29 mg/dL (7-17) H 08/18/17 15:16 Creatinine 10.6 mg/dL (0.7-1.2) H 08/18/17 15:16 Estimated GFR 5 ml/min 08/18/17 15:16 BUN/Creatinine Ratio 3 % 08/18/17 15:16 Glucose 209 mg/dL (65-100) H 08/18/17 15:16 POC Glucose 155 (70-105) H 08/18/17 22:04 Hemoglobin A1c 6.4 % (4-6) H 08/16/17 09:59 Lactic Acid 2.10 mmol/L (0.7-2.0) H* 08/15/17 18:43 Calcium 7.9 mg/dL (8.4-10.2) L 08/18/17 15:16 Total Bilirubin 0.20 mg/dL (0.1-1.2) 08/15/17 13:11 AST 11 units/L (5-40) 08/15/17 13:11 ALT 6 units/L (7-56) L 08/15/17 13:11 Alkaline Phosphatase 90 units/L (35-129) 08/15/17 13:11 Total Protein 7.9 g/dL (6.3-8.2) 08/15/17 13:11 Albumin 3.0 g/dL (3.9-5) L 08/15/17 13:11 Albumin/Globulin Ratio 0.6 % 08/15/17 13:11 Random Vancomycin 23.8 ug/mL (0-40.0) 08/18/17 05:27 Hepatitis A IgM Ab Non-reactive (NonReactive) 08/17/17 14:55 Hep Bs Antigen Non-reactive (Negative) 08/17/17 14:55 Hep B Core IgM Ab Non-reactive (NonReactive) 08/17/17 14:55 Hepatitis C Antibody Reactive (NonReactive) A 08/17/17 14:55 Blood Type A POSITIVE 08/17/17 16:00 Antibody Screen Negative 08/17/17 16:00
--- NOTE | 2017-08-18 13:10 | Consultation ---
History of Present Illness Consult date: 08/18/17 Requesting physician: JULIO C ROSS Consult reason: other (ARLIN ) History of present illness: The patient is a 42 year old female with a history of HTN, ESRD on HD who presented to the ER on 08/15/17 after receiving a call from [facility] (where she was admitted last week) that instructed her that she needed to go the the hospital because she still has an infection in her blood. She reported that one week ago her dialysis catheter came out but she pushed it back in and subsequently started having high fevers and went to [facility]. Catheter was removed and replaced at [facility] but she left against medical advice because her manager regional, Dr. Guzmán does not go there. ARLIN today did reveal vegetation on the tip of the catheter. Past History Past Medical History: diabetes, ESRD, hypertension, other Past Surgical History: cholecystectomy, Other (HD access a month ago) Social history: no significant social history Family history: no significant family history Medications and Allergies Allergies Allergy/AdvReac Type Severity Reaction Status Date / Time warfarin sodium Allergy Hives Verified 07/28/17 15:38 [From Coumadin] Home Medications Medication Instructions Recorded Confirmed Last Taken Type glipiZIDE [glipiZIDE XL] 10 mg PO BID 07/04/13 08/15/17 07/27/17 History Sevelamer Carbonate [Renvela] 400 mg PO TID 04/25/14 08/15/17 12/04/16 History Acetaminophen [Tylenol Extra 500 mg PO DAILY PRN 07/28/17 08/15/17 07/28/17 History Strength] Aspirin [Low Dose Aspirin EC] 81 mg PO DAILY 07/28/17 08/15/17 07/28/17 History Metoprolol [Lopressor TAB] 50 mg PO BID 07/28/17 08/15/17 07/27/17 History cloNIDine [Catapres] 0.2 mg PO DAILY 07/28/17 08/15/17 07/27/17 History Active Meds: Active Medications Acetaminophen (Tylenol) 500 mg PO DAILY PRN PRN Reason: Pain Aspirin (Halfprin Ec) 81 mg PO DAILY [facility] Last Admin: 08/17/17 11:29 Dose: Not Given Benzocaine (Hurricaine One 20% Topical [place]) 3 spray MM PREOP NR Stop: 08/18/17 18:59 Last Admin: 08/18/17 12:08 Dose: 3 spray Clonidine HCl (Catapres) 0.2 mg PO Q12HR [facility], [facility] Last Admin: 08/17/17 22:23 Dose: 0.2 mg Epoetin Deepak (Procrit) 10,000 unit SUB-Q OMRE [facility], [facility]1983 Last Admin: 08/17/17 16:39 Dose: 10,000 unit Glipizide (Glucotrol Xl) 10 mg PO QDDIAB [facility], [facility] Last Admin: 08/17/17 09:17 Dose: 10 mg Sodium Chloride (Nacl 0.9%) 100 mls @ 999 mls/hr IV MORE PRN PRN Reason: Hypotension Insulin Human Lispro (Humalog) 0 unit SUB-Q ACHS [facility], [facility]1983; Protocol Last Admin: 08/17/17 22:22 Dose: Not Given Metoprolol Tartrate (Lopressor) 50 mg PO BID [facility] Last Admin: 08/17/17 22:23 Dose: 50 mg Sevelamer Carbonate (Renvela) 400 mg PO TIDWM [facility], [facility] Last Admin: 08/17/17 16:59 Dose: 400 mg Vancomycin HCl (Vancomycin Pharmacy To Dose) 1 each IV PKCONSULT [facility], [facility]; Protocol Review of Systems Constitutional: fever Ears, nose, mouth and throat: no nasal congestion, no nasal discharge Cardiovascular: no chest pain, no shortness of breath Respiratory: no cough, no congestion, no wheezing Gastrointestinal: no nausea, no vomiting, no diarrhea Genitourinary Female: no dysuria, no urgency Rectal: no pain, no incontinence Musculoskeletal: no neck stiffness, no neck pain, no myalgias Integumentary: no rash, no pruritis Neurological: no parathesias, no numbness Endocrine: no cold intolerance, no heat intolerance Hematologic/Lymphatic: no easy bruising, no easy bleeding Allergic/Immunologic: no urticaria, no wheezing Physical Examination Vital Signs Temp Pulse Resp BP Pulse Ox 99 F 115 H 18 187/109 100 08/15/17 12:32 08/15/17 12:32 08/15/17 12:32 08/15/17 12:32 08/15/17 12:32 General appearance: no acute distress HEENT: Positive: PERRL, Normocephaly, Mucus Membranes Moist Neck: Positive: neck supple, trachea midline Cardiac: Positive: Reg Rate and Rhythm, S1/S2 Lungs: Positive: clear to auscultation Neuro: Positive: Grossly Intact Abdomen: Positive: Unremarkable, Soft Skin: Positive: Clear. Negative: Rash Extremities: Present: normal. Absent: edema Results 08/17/17 09:39 08/17/17 09:39 - Imaging and Cardiology Echo: report reviewed EKG interpretations - Telemetry EKG Rhythm: Sinus Rhythm - EKG Sinus rhythms and dysrhythmias: sinus rhythm Assessment and Plan Assessment: Catheter associated bacteremia ESRD on HD Hypertension Diabetes Anemia Plan: ARLIN today revealed vegetation on the tip of her dialysis catheter. Discussed with ID. Will follow. The patient has been seen in conjunction with Dr. Westfall who agrees with the assessment and plan of care.
--- NOTE | 2017-08-18 13:41 | Event Note ---
Date: 08/18/17 I received a call from Dr Westfall regarding ARLIN showing a large vegetation at the tip of the HD cath. Patient grew E faecalis on 08/12 at [facility]. An old HD access was removed there and a new one was placed on the same side. I believe this cath is infected. In view of side of vegetation versus fibrin sheath, IR eval should be done. Agree with canceling discharge and outpatient antibiotics orders. She needs at least 6 weeks of IV abx. Patient education is needed as she wanted to be d/c home chaim. Case discussed with Dr Melgar and Dr Stevens.
[2017-08-18] MEDS: GLUCOTROL XL PO SCH (15:34)
[2017-08-18] MEDS: LOPRESSOR PO SCH ×2 (15:40→22:47)
[2017-08-18] MEDS: CATAPRES PO SCH ×2 (15:41→22:47)
[2017-08-18 16:01] LABS: Calcium 7.9 mg/dL (8.4-10.2)
--- NOTE | 2017-08-18 16:15 | Progress Note ---
Assessment and Plan - Patient Problems (1) Bacteremia Current Visit: Yes Status: Acute Plan to address problem: BC[place] result from [facility] showed Enterococcus faecalis, TTE shows evidence of vegetation at the tip of the permcath. vascular surgery consulted for removal of cath. cont ABXs as per ID recommendations. (2) ESRD (end stage renal disease) on dialysis Current Visit: Yes Status: Chronic Plan to address problem: cont maintenance HD on TTS schedule, will cont HD via vascath once permcath is removed. reinsertion of new permcath once cleared by ID. 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 Chronic kidney disease stage: on chronic dialysis Plan to address problem: glucose control as per primary attending Subjective Date of service: 08/18/17 Principal diagnosis: bacteremia Interval history: Pt awake, alert, in NAD, denies fever, chills, n/v/d Objective - Vital Signs Vital signs: Vital Signs - 12hr 08/18/17 08/18/17 08/18/17 07:37 12:08 12:17 Temperature 99.0 F Pulse Rate 93 H Pulse Rate [ 90 96 H Intra-Procedure ] Respiratory 20 Rate Respiratory 22 23 Rate [Intra- Procedure] Blood Pressure 138/74 Blood Pressure 190/105 222/121 [Intra- Procedure] O2 Sat by Pulse 97 Oximetry O2 Sat by Pulse 100 100 Oximetry [ Intra-Procedure ] 08/18/17 08/18/17 12:22 15:55 Temperature Pulse Rate Pulse Rate [ 97 H Intra-Procedure ] Respiratory Rate Respiratory 27 H Rate [Intra- Procedure] Blood Pressure Blood Pressure 192/108 [Intra- Procedure] O2 Sat by Pulse 99 Oximetry O2 Sat by Pulse 98 Oximetry [ Intra-Procedure ] - General Appearance General appearance: well-developed, well-nourished, appears stated age EENT: ATNC, PERRL, mucous membranes moist Neck: no JVD Respiratory: Present: Clear to Ascultation Cardiology: regular, S1S2 Gastrointestinal: normoactive bowel sounds Integumentary: no rash, other (no edema ) Neurologic: no focal deficit, alert and oriented x3, strength 5/5, CN 3-12 intact Psychiatric: mood/affect appropriate, cooperative - Lab 08/17/17 09:39 08/18/17 15:16 Most recent lab results Calcium 7.9 mg/dL (8.4-10.2) L 08/18/17 15:16
[2017-08-18 16:20] LABS: Basophils % (Auto) 0.4 % (0.0-1.8); Eosinophils # (Auto) 0.1 K/mm3 (0.0-0.4); Eosinophils % (Auto) 0.8 % (0.0-4.3); Hematocrit 23.5 % (30.3-42.9); Hemoglobin 7.3 gm/dl (10.1-14.3); Lymphocytes # (Auto) 0.6 K/mm3 (1.2-5.4); Lymphocytes % (Auto) 7.3 % (13.4-35.0); Mean Corpuscular HGB Conc 31 % (30-34); Mean Corpuscular Hemoglobin 27 pg (28-32); Mean Corpuscular Volume 85 fl (79-97); Monocytes # (Auto) 0.5 K/mm3 (0.0-0.8); Monocytes % (Auto) 6.1 % (0.0-7.3); Platelet Count 188 K/mm3 (140-440); Red Blood Count 2.77 M/mm3 (3.65-5.03); Red Cell Distribution Width 18.2 % (13.2-15.2)
[2017-08-18] MEDS: HALFPRIN EC PO SCH (19:03)
[2017-08-18] MEDS: APRESOLINE PO SCH ×2 (19:06→22:46)
[2017-08-19 05:50] LABS: Hematocrit 22.4 % (30.3-42.9); Hemoglobin 7.4 gm/dl (10.1-14.3); Mean Corpuscular HGB Conc 33 % (30-34); Mean Corpuscular Hemoglobin 27 pg (28-32); Mean Corpuscular Volume 83 fl (79-97); Platelet Count 170 K/mm3 (140-440); Red Cell Distribution Width 18.2 % (13.2-15.2)
[2017-08-19 06:12] LABS: Calcium 7.9 mg/dL (8.4-10.2)
[2017-08-19] MEDS: APRESOLINE PO SCH ×3 (06:15→21:00)
[2017-08-19] MEDS: HumaLOG SUB-Q SCH ×4 (07:43→21:02)
[2017-08-19] MEDS: GLUCOTROL XL PO SCH (07:44)
[2017-08-19] MEDS: RENVELA PO SCH ×3 (07:44→17:22)
--- NOTE | 2017-08-19 09:19 | Consultation ---
History of Present Illness - Reason for Consult Consult date: 08/19/17 Intravascular filling defect - History of Present Illness 42 years old female with history of end-stage disease on hemodialysis at home who was admitted on 08/15/2017 after being called home due to positive blood cultures from [facility]. Patient was admitted to [facility] a week ago due to fever. During home dialysis the permcath came out and she pushed it in, and 4 hours after that she spiked a fever 103. She went to [facility] , had her old permcath removed and a new permcath placed. By the time blood cultures became positive, she have already left AMA because her dialysis doctor had no privileges there. Denies any drainage from dialysis catheter, nausea, vomiting, diarrhea. Denies any respiratory symptoms. Echocardiogram demonstrates an intraluminal filling defect attached to the catheter and therefore vascular was consulted. Past History Past Medical History: diabetes, ESRD, hypertension, other Past Surgical History: cholecystectomy, Other (HD access a month ago) Social history: no significant social history Family history: no significant family history Medications and Allergies Allergies Allergy/AdvReac Type Severity Reaction Status Date / Time warfarin sodium Allergy Hives Verified 07/28/17 15:38 [From Coumadin] Home Medications Medication Instructions Recorded Confirmed Last Taken Type glipiZIDE [glipiZIDE XL] 10 mg PO BID 07/04/13 08/15/17 07/27/17 History Sevelamer Carbonate [Renvela] 400 mg PO TID 04/25/14 08/15/17 12/04/16 History Acetaminophen [Tylenol Extra 500 mg PO DAILY PRN 07/28/17 08/15/17 07/28/17 History Strength] Aspirin [Low Dose Aspirin EC] 81 mg PO DAILY 07/28/17 08/15/17 07/28/17 History Metoprolol [Lopressor TAB] 50 mg PO BID 07/28/17 08/15/17 07/27/17 History cloNIDine [Catapres] 0.2 mg PO DAILY 07/28/17 08/15/17 07/27/17 History Active Meds: Active Medications Acetaminophen (Tylenol) 500 mg PO DAILY PRN PRN Reason: Pain Aspirin (Halfprin Ec) 81 mg PO DAILY [facility] Last Admin: 08/18/17 19:03 Dose: 81 mg Clonidine HCl (Catapres) 0.2 mg PO Q12HR [facility] Last Admin: 08/18/17 22:47 Dose: 0.2 mg Epoetin Deepak (Procrit) 10,000 unit SUB-Q MORE [facility] Last Admin: 08/17/17 16:39 Dose: 10,000 unit Glipizide (Glucotrol Xl) 10 mg PO QDDIAB [facility] Last Admin: 08/19/17 07:44 Dose: Not Given Hydralazine HCl (Apresoline) 25 mg PO Q8HR [facility] Last Admin: 08/19/17 06:15 Dose: 25 mg Sodium Chloride (Nacl 0.9%) 100 mls @ 999 mls/hr IV MORE PRN PRN Reason: Hypotension Insulin Human Lispro (Humalog) 0 unit SUB-Q ACHS [facility]; Protocol Last Admin: 08/19/17 07:43 Dose: Not Given Metoprolol Tartrate (Lopressor) 50 mg PO BID [facility] Last Admin: 08/18/17 22:47 Dose: 50 mg Sevelamer Carbonate (Renvela) 400 mg PO TIDWM [facility] Last Admin: 08/19/17 07:44 Dose: Not Given Vancomycin HCl (Vancomycin Pharmacy To Dose) 1 each IV PKCONSULT [facility]; Protocol Review of Systems All systems: negative (see HPI) Exam - Constitutional Vitals: Temp Pulse Resp BP Pulse Ox 98.1 F 91 H 20 154/88 98 08/19/17 07:45 08/19/17 07:45 08/19/17 07:45 08/19/17 07:45 08/19/17 07:45 General appearance: Present: no acute distress, obese - EENT Eyes: Present: EOM intact ENT: hearing intact - Neck Neck: Present: supple - Respiratory Respiratory effort: normal - Extremities Extremities: normal temperature, normal color - Abdominal General gastrointestinal: Present: soft - Psychiatric Psychiatric: appropriate mood/affect, cooperative Results - Labs CBC & Chem 7: 08/19/17 05:02 08/19/17 05:02 Labs: Abnormal lab results 08/18/17 08/18/17 08/18/17 Range/Units 13:37 15:16 15:16 RBC 2.77 L (3.65-5.03) M/mm3 Hgb 7.3 L (10.1-14.3) gm/dl Hct 23.5 L (30.3-42.9) % MCH 27 L (28-32) pg RDW 18.2 H (13.2-15.2) % Lymph % (Auto) 7.3 L (13.4-35.0) % Lymph # 0.6 L (1.2-5.4) K/mm3 Seg Neutrophils % 85.4 H (40.0-70.0) % Sodium 134 L (137-145) mmol/L Chloride 94.8 L (98-107) mmol/L Carbon Dioxide (22-30) mmol/L BUN 29 H (7-17) mg/dL Creatinine 10.6 H (0.7-1.2) mg/dL Glucose 209 H (65-100) mg/dL POC Glucose 149 H (70-105) Calcium 7.9 L (8.4-10.2) mg/dL 08/18/17 08/18/17 08/19/17 Range/Units 16:42 22:04 05:02 RBC 2.70 L (3.65-5.03) M/mm3 Hgb 7.4 L (10.1-14.3) gm/dl Hct 22.4 L (30.3-42.9) % MCH 27 L (28-32) pg RDW 18.2 H (13.2-15.2) % Lymph % (Auto) (13.4-35.0) % Lymph # (1.2-5.4) K/mm3 Seg Neutrophils % (40.0-70.0) % Sodium (137-145) mmol/L Chloride (98-107) mmol/L Carbon Dioxide (22-30) mmol/L BUN (7-17) mg/dL Creatinine (0.7-1.2) mg/dL Glucose (65-100) mg/dL POC Glucose 262 H 155 H (70-105) Calcium (8.4-10.2) mg/dL 08/19/17 08/19/17 Range/Units 05:02 05:14 RBC (3.65-5.03) M/mm3 Hgb (10.1-14.3) gm/dl Hct (30.3-42.9) % MCH (28-32) pg RDW (13.2-15.2) % Lymph % (Auto) (13.4-35.0) % Lymph # (1.2-5.4) K/mm3 Seg Neutrophils % (40.0-70.0) % Sodium 134 L (137-145) mmol/L Chloride 94.7 L (98-107) mmol/L Carbon Dioxide 21 L (22-30) mmol/L BUN 36 H (7-17) mg/dL Creatinine 11.8 H (0.7-1.2) mg/dL Glucose 144 H (65-100) mg/dL POC Glucose 156 H (70-105) Calcium 7.9 L (8.4-10.2) mg/dL Assessment and Plan 42-year-old female with end-stage renal disease who had fever after pushing her PermCath back through her dermatology when it became loose. She had a catheter placement in her left internal jugular vein at [facility] with removal of the old PermCath. Blood cultures from [facility] were positive. Blood cultures here are no growth to date. The patient has had prior accesses in her left upper extremity and right upper extremity, and was previously discussing with her vascular surgeon the possibility of a HERO catheter. Hero catheters are typically used in the setting of SVC syndrome implying that catheter removal and new catheter placement is not a good option especially given the recent trauma of the left internal regular vein by recent removal and placement. Patient will be set up for perm cath exchange and venography with possible venoplasty. Afterwards, antibiotics per infectious disease.
[2017-08-19] MEDS: CATAPRES PO SCH ×2 (09:49→21:00)
[2017-08-19] MEDS: LOPRESSOR PO SCH ×2 (09:49→21:00)
[2017-08-19] MEDS: HALFPRIN EC PO SCH (10:00)
--- NOTE | 2017-08-19 11:12 | Progress Note ---
Assessment and Plan Assessment: Catheter associated bacteremia ESRD on HD Hypertension Diabetes Anemia Plan: ARLIN yesterday revealed vegetation on the tip of her dialysis catheter. For possible permacath exchange. Will follow. The patient has been seen in conjunction with Dr. Stanton who agrees with the assessment and plan of care. Subjective Date of service: 08/19/17 Principal diagnosis: bacteremia Interval history: pt resting in bed, no current cardiac complaints. has been NPO for poss permacath exchange today. Objective Last Vital Signs Temp 98.1 F 08/19/17 07:45 Pulse 91 H 08/19/17 07:45 Resp 20 08/19/17 07:45 BP 154/88 08/19/17 07:45 Pulse Ox 98 08/19/17 07:45 - Physical Examination General: No Apparent Distress HEENT: Positive: PERRL, Normocephaly, Mucus Membranes Moist Neck: Positive: neck supple, trachea midline Cardiac: Positive: Reg Rate and Rhythm, S1/S2 Lungs: Positive: clear to auscultation Neuro: Positive: Grossly Intact Abdomen: Positive: Unremarkable, Soft Skin: Positive: Clear. Negative: Rash Extremities: Present: normal. Absent: edema - Labs and Meds CBC 08/18/17 08/19/17 Range/Units 15:16 05:02 WBC 7.8 7.1 (4.5-11.0) K/mm3 RBC 2.77 L 2.70 L (3.65-5.03) M/mm3 Hgb 7.3 L 7.4 L (10.1-14.3) gm/dl Hct 23.5 L 22.4 L (30.3-42.9) % Plt Count 188 170 (140-440) K/mm3 Lymph # 0.6 L (1.2-5.4) K/mm3 Lipscomb # 0.5 (0.0-0.8) K/mm3 Eos # 0.1 (0.0-0.4) K/mm3 Baso # 0.0 (0.0-0.1) K/mm3 Comprehensive Metabolic Panel 08/18/17 08/19/17 Range/Units 15:16 05:02 Sodium 134 L 134 L (137-145) mmol/L Potassium 3.8 4.1 (3.6-5.0) mmol/L Chloride 94.8 L 94.7 L (98-107) mmol/L Carbon Dioxide 22 21 L (22-30) mmol/L BUN 29 H 36 H (7-17) mg/dL Creatinine 10.6 H 11.8 H (0.7-1.2) mg/dL Glucose 209 H 144 H (65-100) mg/dL Calcium 7.9 L 7.9 L (8.4-10.2) mg/dL - Imaging and Cardiology Echo: report reviewed - EKG Sinus rhythms and dysrhythmias: sinus rhythm
[2017-08-19] MEDS ORDERED: HEPARIN/NS 5000 UNIT/500ML(CATH LAB) 500 ML IR ONE (13:04)
[2017-08-19] MEDS ORDERED: XYLOCAINE 1%/ EPI 1:100,000 INFILTRATI ONE (13:05)
[2017-08-19] MEDS ORDERED: NACL 0.9% 250ML 250 ML ONE (13:05)
[2017-08-19] MEDS: VERSED ONE ×2 (13:22→13:52)
[2017-08-19] MEDS: SUBLIMAZE ONE ×2 (13:22→13:52)
--- NOTE | 2017-08-19 14:00 | Progress Note ---
Assessment and Plan Assessment: 1) Catheter-associated bacteremia and vegetation attached to the cath tip: likely due to E faecalis -[place] [facility] [place] -E faecalis sensitive to amp/vvanco in blood cx [place] [facility] [place]repeat blood cultures on 08/15 negative -ARLIN an intraluminal filling defect attached to the catheter ? infected thrombus. 2) ESRD on HD 3) DM 4) HTN Plan: -vascular consult -HD cath to be removed -continue vancomycin IV renally dosed -upon discharge will do vancomycin 1 g IV q 48h on HD total 6 weeks until . Will ask renal to help us arrange at HD. -ID clinic f/u in 1 week Thank you for your consultation, will follow up with you. Constanza Shannon MD Infectious Diseases Specialist [facility] M [phone] O [phone] Subjective Date of service: 08/19/17 Principal diagnosis: bacteremia Interval history: Feels ok, no fever. Microbiology: Blood cultures: 08/15 ngtd 08/12 E fa[place] [facility] [place] Current Antimicrobials: levaquin vanco Previous Antimicrobials: Objective - Exam Narrative Exam: General appearance: Alert in NAD, conversant, obese Eyes: anicteric sclerae, moist conjunctivae; no lid-lag; PERRLA HENT: Atraumatic; oropharynx clear Neck: Trachea midline; supple, no thyromegaly or lymphadenopathy Lungs: CTA, with normal respiratory effort and no intercostal retractions CV: RRR, no murmurs Abdomen: Soft, non-tender; no masses or hepatosplenomegaly Extremities: No peripheral edema or extremity lymphadenopathy Skin: Normal temperature, turgor and texture; no rash, ulcers or subcutaneous nodules Psych: Appropriate affect, alert and oriented to person, place and time. Neuro: alert and oriented x 3. Moving all extermities Lines: right AVF, left SC HD access - Constitutional Vitals: Vital Signs Temp Pulse Resp BP Pulse Ox 97.8 F 78 20 152/47 99 08/19/17 11:12 08/19/17 11:12 08/19/17 11:12 08/19/17 11:12 08/19/17 11:12 Temperature -Last 24 Hours Temperature 97.8 F Temperature 98.1 F Temperature 98.8 F Temperature 98.5 F - Labs CBC & Chem 7: 08/19/17 05:02 08/19/17 05:02 Labs: Abnormal lab results 08/18/17 08/18/17 08/18/17 Range/Units 15:16 15:16 16:42 RBC 2.77 L (3.65-5.03) M/mm3 Hgb 7.3 L (10.1-14.3) gm/dl Hct 23.5 L (30.3-42.9) % MCH 27 L (28-32) pg RDW 18.2 H (13.2-15.2) % Lymph % (Auto) 7.3 L (13.4-35.0) % Lymph # 0.6 L (1.2-5.4) K/mm3 Seg Neutrophils % 85.4 H (40.0-70.0) % Sodium 134 L (137-145) mmol/L Chloride 94.8 L (98-107) mmol/L Carbon Dioxide (22-30) mmol/L BUN 29 H (7-17) mg/dL Creatinine 10.6 H (0.7-1.2) mg/dL Glucose 209 H (65-100) mg/dL POC Glucose 262 H (70-105) Calcium 7.9 L (8.4-10.2) mg/dL 08/18/17 08/19/17 08/19/17 Range/Units 22:04 05:02 05:02 RBC 2.70 L (3.65-5.03) M/mm3 Hgb 7.4 L (10.1-14.3) gm/dl Hct 22.4 L (30.3-42.9) % MCH 27 L (28-32) pg RDW 18.2 H (13.2-15.2) % Lymph % (Auto) (13.4-35.0) % Lymph # (1.2-5.4) K/mm3 Seg Neutrophils % (40.0-70.0) % Sodium 134 L (137-145) mmol/L Chloride 94.7 L (98-107) mmol/L Carbon Dioxide 21 L (22-30) mmol/L BUN 36 H (7-17) mg/dL Creatinine 11.8 H (0.7-1.2) mg/dL Glucose 144 H (65-100) mg/dL POC Glucose 155 H (70-105) Calcium 7.9 L (8.4-10.2) mg/dL 08/19/17 Range/Units 05:14 RBC (3.65-5.03) M/mm3 Hgb (10.1-14.3) gm/dl Hct (30.3-42.9) % MCH (28-32) pg RDW (13.2-15.2) % Lymph % (Auto) (13.4-35.0) % Lymph # (1.2-5.4) K/mm3 Seg Neutrophils % (40.0-70.0) % Sodium (137-145) mmol/L Chloride (98-107) mmol/L Carbon Dioxide (22-30) mmol/L BUN (7-17) mg/dL Creatinine (0.7-1.2) mg/dL Glucose (65-100) mg/dL POC Glucose 156 H (70-105) Calcium (8.4-10.2) mg/dL
[2017-08-19] MEDS: HEPARIN 10,000 UNITS/10 ML ONE ×2 (14:02→14:03)
--- NOTE | 2017-08-19 14:02 | Progress Note ---
<JULIO C ROSS - Last Filed: 08/19/17 13:49> Assessment and Plan Assessment and plan: Patient is 42 years old female history of end-stage disease on hemodialysis at home. Patient presented to the ER after she received a call from [facility] where she was admitted last week. sShe was told that she needed to go to the hospital because she still have infection in her blood. Patient stated that 1 week ago her dialysis catheter came out and she pushed it back in, and since then she started having high fever she went to [facility] and was admitted for infection receive antibiotic and she signed AGAINST MEDICAL ADVICE b/c her Changeover Operator was not on staff there Catheter associated Bacteremia Culture [place] [facility] [place] Enter[place] faecalis will continue Vanco outpatient per ID, ARLIN showing a large vegetation at the tip of the HD cath, Possible Permcath exchange today ID following- Patient will need 6 weeks of IV abx per ID Infection, dialysis vascular access Same as above, replaced at [facility], ESRD (end stage renal disease) on dialysis Cont HD on TTS schedule, Dr Padilla following Anemia in end-stage renal disease Epogen with HD Hypokalemia Now resolved HTN (hypertension) Cont Antihypertensives T2DM (type 2 diabetes mellitus) Cut down Glipizide to once a day b/c of danger of Hypoglycemia Patient may be discharged on LA Insulin and discontinue Glipizide totally b/c of erratic action. A1c 6.4 Morbid Obesity Patient counselled on weight loss DVT prophylaxis Heparin History Interval history: Patient seen and examined. No complaints at this time. Labs and nursing notes reviewed. Hospitalist Physical - Constitutional Vitals: Temp Pulse Resp BP Pulse Ox 97.8 F 78 20 152/47 99 08/19/17 11:12 08/19/17 11:12 08/19/17 11:12 08/19/17 11:12 08/19/17 11:12 General appearance: Present: no acute distress, mild distress - EENT Eyes: Present: PERRL, EOM intact ENT: hearing intact, clear oral mucosa - Neck Neck: Present: supple, normal ROM - Respiratory Respiratory effort: normal Respiratory: bilateral: CTA - Cardiovascular Rhythm: regular Heart Sounds: Present: S1 & S2 - Extremities Extremities: no ischemia, pulses intact, No edema - Abdominal General gastrointestinal: soft, non-tender, non-distended - Integumentary Integumentary: Present: clear, warm, dry - Psychiatric Psychiatric: appropriate mood/affect, intact judgment & insight, cooperative - Neurologic Neurologic: CNII-XII intact, moves all extremities - Allied Health Allied health notes reviewed: nursing Results - Labs CBC & Chem 7: 08/19/17 05:02 08/19/17 05:02 Labs: Laboratory Last Values WBC 7.1 K/mm3 (4.5-11.0) 08/19/17 05:02 RBC 2.70 M/mm3 (3.65-5.03) L 08/19/17 05:02 Hgb 7.4 gm/dl (10.1-14.3) L 08/19/17 05:02 Hct 22.4 % (30.3-42.9) L 08/19/17 05:02 MCV 83 fl (79-97) 08/19/17 05:02 MCH 27 pg (28-32) L 08/19/17 05:02 MCHC 33 % (30-34) 08/19/17 05:02 RDW 18.2 % (13.2-15.2) H 08/19/17 05:02 Plt Count 170 K/mm3 (140-440) 08/19/17 05:02 Lymph % (Auto) 7.3 % (13.4-35.0) L 08/18/17 15:16 Rankin % (Auto) 6.1 % (0.0-7.3) 08/18/17 15:16 Eos % (Auto) 0.8 % (0.0-4.3) 08/18/17 15:16 Baso % (Auto) 0.4 % (0.0-1.8) 08/18/17 15:16 Lymph # 0.6 K/mm3 (1.2-5.4) L 08/18/17 15:16 Rankin # 0.5 K/mm3 (0.0-0.8) 08/18/17 15:16 Eos # 0.1 K/mm3 (0.0-0.4) 08/18/17 15:16 Baso # 0.0 K/mm3 (0.0-0.1) 08/18/17 15:16 Seg Neutrophils % 85.4 % (40.0-70.0) H 08/18/17 15:16 Seg Neutrophils # 6.7 K/mm3 (1.8-7.7) 08/18/17 15:16 PT 13.8 Sec. (12.2-14.9) 08/15/17 13:11 INR 1.01 (0.87-1.13) 08/15/17 13:11 VBG pH 7.392 (7.320-7.420) 08/15/17 13:11 Sodium 134 mmol/L (137-145) L 08/19/17 05:02 Potassium 4.1 mmol/L (3.6-5.0) 08/19/17 05:02 Chloride 94.7 mmol/L (98-107) L 08/19/17 05:02 Carbon Dioxide 21 mmol/L (22-30) L 08/19/17 05:02 Anion Gap 22 mmol/L 08/19/17 05:02 BUN 36 mg/dL (7-17) H 08/19/17 05:02 Creatinine 11.8 mg/dL (0.7-1.2) H 08/19/17 05:02 Estimated GFR 4 ml/min 08/19/17 05:02 BUN/Creatinine Ratio 3 % 08/19/17 05:02 Glucose 144 mg/dL (65-100) H 08/19/17 05:02 POC Glucose 156 (70-105) H 08/19/17 05:14 Hemoglobin A1c 6.4 % (4-6) H 08/16/17 09:59 Lactic Acid 2.10 mmol/L (0.7-2.0) H* 08/15/17 18:43 Calcium 7.9 mg/dL (8.4-10.2) L 08/19/17 05:02 Total Bilirubin 0.20 mg/dL (0.1-1.2) 08/15/17 13:11 AST 11 units/L (5-40) 08/15/17 13:11 ALT 6 units/L (7-56) L 08/15/17 13:11 Alkaline Phosphatase 90 units/L (35-129) 08/15/17 13:11 Total Protein 7.9 g/dL (6.3-8.2) 08/15/17 13:11 Albumin 3.0 g/dL (3.9-5) L 08/15/17 13:11 Albumin/Globulin Ratio 0.6 % 08/15/17 13:11 Random Vancomycin 23.8 ug/mL (0-40.0) 08/18/17 05:27 Hepatitis A IgM Ab Non-reactive (NonReactive) 08/17/17 14:55 Hep Bs Antigen Non-reactive (Negative) 08/17/17 14:55 Hep B Core IgM Ab Non-reactive (NonReactive) 08/17/17 14:55 Hepatitis C Antibody Reactive (NonReactive) A 08/17/17 14:55 Blood Type A POSITIVE 08/17/17 16:00 Antibody Screen Negative 08/17/17 16:00 <CARL PATE - Last Filed: 08/19/17 21:52> Assessment and Plan Assessment and plan: I saw and evaluated the patient. I agree with the findings and the plan of care as documented in the PA's~note, with the following corrections and additions. Hospitalist Physical - Constitutional Vitals: Temp Pulse Resp BP Pulse Ox 98.8 F 100 H 18 186/97 97 08/19/17 20:27 08/19/17 20:27 08/19/17 20:57 08/19/17 20:27 08/19/17 20:27 Results - Labs CBC & Chem 7: 08/19/17 05:02 08/19/17 05:02 Labs: Laboratory Last Values WBC 7.1 K/mm3 (4.5-11.0) 08/19/17 05:02 RBC 2.70 M/mm3 (3.65-5.03) L 08/19/17 05:02 Hgb 7.4 gm/dl (10.1-14.3) L 08/19/17 05:02 Hct 22.4 % (30.3-42.9) L 08/19/17 05:02 MCV 83 fl (79-97) 08/19/17 05:02 MCH 27 pg (28-32) L 08/19/17 05:02 MCHC 33 % (30-34) 08/19/17 05:02 RDW 18.2 % (13.2-15.2) H 08/19/17 05:02 Plt Count 170 K/mm3 (140-440) 08/19/17 05:02 Lymph % (Auto) 7.3 % (13.4-35.0) L 08/18/17 15:16 Rankin % (Auto) 6.1 % (0.0-7.3) 08/18/17 15:16 Eos % (Auto) 0.8 % (0.0-4.3) 08/18/17 15:16 Baso % (Auto) 0.4 % (0.0-1.8) 08/18/17 15:16 Lymph # 0.6 K/mm3 (1.2-5.4) L 08/18/17 15:16 Rankin # 0.5 K/mm3 (0.0-0.8) 08/18/17 15:16 Eos # 0.1 K/mm3 (0.0-0.4) 08/18/17 15:16 Baso # 0.0 K/mm3 (0.0-0.1) 08/18/17 15:16 Seg Neutrophils % 85.4 % (40.0-70.0) H 08/18/17 15:16 Seg Neutrophils # 6.7 K/mm3 (1.8-7.7) 08/18/17 15:16 PT 13.8 Sec. (12.2-14.9) 08/15/17 13:11 INR 1.01 (0.87-1.13) 08/15/17 13:11 VBG pH 7.392 (7.320-7.420) 08/15/17 13:11 Sodium 134 mmol/L (137-145) L 08/19/17 05:02 Potassium 4.1 mmol/L (3.6-5.0) 08/19/17 05:02 Chloride 94.7 mmol/L (98-107) L 08/19/17 05:02 Carbon Dioxide 21 mmol/L (22-30) L 08/19/17 05:02 Anion Gap 22 mmol/L 08/19/17 05:02 BUN 36 mg/dL (7-17) H 08/19/17 05:02 Creatinine 11.8 mg/dL (0.7-1.2) H 08/19/17 05:02 Estimated GFR 4 ml/min 08/19/17 05:02 BUN/Creatinine Ratio 3 % 08/19/17 05:02 Glucose 144 mg/dL (65-100) H 08/19/17 05:02 POC Glucose 239 (70-105) H 08/19/17 20:44 Hemoglobin A1c 6.4 % (4-6) H 08/16/17 09:59 Lactic Acid 2.10 mmol/L (0.7-2.0) H* 08/15/17 18:43 Calcium 7.9 mg/dL (8.4-10.2) L 08/19/17 05:02 Total Bilirubin 0.20 mg/dL (0.1-1.2) 08/15/17 13:11 AST 11 units/L (5-40) 08/15/17 13:11 ALT 6 units/L (7-56) L 08/15/17 13:11 Alkaline Phosphatase 90 units/L (35-129) 08/15/17 13:11 Total Protein 7.9 g/dL (6.3-8.2) 08/15/17 13:11 Albumin 3.0 g/dL (3.9-5) L 08/15/17 13:11 Albumin/Globulin Ratio 0.6 % 08/15/17 13:11 Random Vancomycin 23.8 ug/mL (0-40.0) 08/18/17 05:27 Hepatitis A IgM Ab Non-reactive (NonReactive) 08/17/17 14:55 Hep Bs Antigen Non-reactive (Negative) 08/17/17 14:55 Hep B Core IgM Ab Non-reactive (NonReactive) 08/17/17 14:55 Hepatitis C Antibody Reactive (NonReactive) A 08/17/17 14:55 Blood Type A POSITIVE 08/17/17 16:00 Antibody Screen Negative 08/17/17 16:00
--- NOTE | 2017-08-19 16:17 | Operative Report ---
Operative Report Operative Report: EXAM: 1. Fluoroscopic guided exchange of a left internal jugular tunneled cuffed hemodialysis catheter. 2. Superior venacava venography 3. Angioplasty of the SVC with a 12 mm angioplasty balloon angioplasty of the left innominate vein with a 12 mm angioplasty balloon. DATE: 08/19/17 INDICATION: End-stage renal disease with recent bacteremia with indwelling PermCath and vegetation noted on PermCath. MEDICATIONS: Please see nursing report for full details. PHOTOGRAMMETRIC SURVEYOR: ASHKAN STAHL MD DEVICES: 23 cm tip to cuff 15 Fr dual lumen hemodialysis catheter ; existing catheter was a 27 cm tip to cuff dual lumen hemodialysis catheter CONTRAST: Please see lab asst report for full details. PROCEDURE: The risks, benefits, and alternatives were discussed and informed consent was obtained. The patient was transported to the angiography suite in satisfactory/ stable condition and was transported onto the angiography table. The patient was prepped and draped in a sterile fashion. The existing PermCath was prepped and draped in a sterile fashion. Heparin was removed from the lumens and then saline was used to flush the lumens. A stiff angled Glidewire was advanced to the blue lumen of the existing PermCath. Lidocaine was used to anesthetize the existing PermCath dermatotomy. Using a hemostat, blunt dissection was used to free the existing cuff. The catheter was partially retracted. Digital subtraction venography was performed through the red lumen. The catheter was then further removed and digital subtraction angiography was performed in the left innominate vein. Over the 0.035 inch wire, the existing PermCath was removed and a 7 Azeri sheath was advanced over the wire. 12 mm x 6 cm angioplasty balloon was advanced over the wire and used to perform angioplasty of the SVC and left innominate vein. Digital subtraction angiography was then performed to the sheath. The balloon was removed and the sheath was removed. Over 2 stiff angled Glidewire's, a new PermCath was attempted to be advanced over the wire, but would not pass into the internal jugular vein. This was reattempted with 2 Amplatz wires but was unsuccessful. Ultimately a peel-away sheath was used over Amplatz wire. A new PermCath was then advanced over the wire and position centrally under fluoroscopic guidance. The perm cath was then reassembled as it was a retrograde PermCath. Excellent flow was achieved. 2-0 Ethilon suture was used to secure the catheter at the dermatotomy. The catheter was charged with heparin 1000 units per mL of space. Sterile dressing and Biopatch applied. The patient was transferred from the angiography suite back to the floor in stable condition. FINDINGS: 1. Excellent flow was obtained through the dialysis catheter with 20 mL syringes. 2. The new catheter tip is in the right atrium. 3. Superior vena cava venography demonstrates prompt flow without issue, without evidence of vegetation or filling defects. The left innominate vein is atretic and essentially occluded. After angioplasty of the SVC and left innominate vein, left innominate vein now has prompt flow within it with only mild residual narrowing. IMPRESSION: 1. Successful fluoroscopic guided replacement of a left internal jugular tunneled cuffed hemodialysis catheter. 2. Successful angioplasty of the SVC and left innominate vein.
--- NOTE | 2017-08-19 17:35 | Progress Note ---
Assessment and Plan - Patient Problems (1) Bacteremia Current Visit: Yes Status: Acute Plan to address problem: [place] [facility] [place], TTE shows evidence of vegetation at the tip of the permcath. repeat BCx from 08/15 NGTD, s/p new L IJ permcath placement today. Will arrange IV vanco at outpatient HD clinic. Total 6 weeks until 09/26/17 as per ID recommendations. (2) ESRD (end stage renal disease) on dialysis Current Visit: Yes Status: Chronic Plan to address problem: cont maintenance HD on TTS schedule. (3) Anemia in chronic illness Current Visit: Yes Status: Acute Plan to address problem: EPO with HD (4) HTN (hypertension) Current Visit: Yes Status: Chronic Qualifiers: Hypertension type: essential hypertension Qualified Code(s): I10 - Essential (primary) hypertension Plan to address problem: BP elevated, will add hydralazine 25mg po tid (5) T2DM (type 2 diabetes mellitus) Current Visit: Yes Status: Chronic Qualifiers: Diabetes mellitus continuous churn buttermaker insulin use: without continuous churn buttermaker use Chronic kidney disease stage: on chronic dialysis Plan to address problem: glucose control as per primary attending Subjective Date of service: 08/19/17 Principal diagnosis: bacteremia Interval history: Pt seen during HD, awake, alert, in NAD, denies fever, chills, n/v/d Objective - Vital Signs Vital signs: Vital Signs - 12hr 08/19/17 08/19/17 08/19/17 06:15 07:45 11:12 Temperature 98.1 F 97.8 F Pulse Rate 93 H 91 H 78 Respiratory 20 20 Rate Blood Pressure 140/81 154/88 Blood Pressure 152/47 [Right] O2 Sat by Pulse 98 99 Oximetry - General Appearance General appearance: well-developed, well-nourished, appears stated age EENT: ATNC, PERRL, mucous membranes moist Neck: no JVD, other (New L IJ permcath ) Respiratory: Present: Clear to Ascultation Cardiology: regular, S1S2 Gastrointestinal: normoactive bowel sounds, obese Integumentary: no rash, other (no edema ) Neurologic: no focal deficit, alert and oriented x3, strength 5/5, CN 3-12 intact Psychiatric: mood/affect appropriate, cooperative - Lab 08/19/17 05:02 08/19/17 05:02 Most recent lab results Calcium 7.9 mg/dL (8.4-10.2) L 08/19/17 05:02
[2017-08-19] MEDS ORDERED: HEPARIN IV PRN (18:02)
[2017-08-19] MEDS ORDERED: APRESOLINE IV PRN (21:50)
[2017-08-20] MEDS: APRESOLINE PO SCH (06:21)
[2017-08-20] MEDS: HumaLOG SUB-Q SCH ×2 (07:30→11:30)
[2017-08-20 07:53] VITALS: BP 122/65
[2017-08-20] MEDS: RENVELA PO SCH ×2 (08:00→12:50)
[2017-08-20] MEDS: HALFPRIN EC PO SCH (09:58)
[2017-08-20] MEDS: LOPRESSOR PO SCH (09:58)
[2017-08-20] MEDS: GLUCOTROL XL PO SCH (09:58)
[2017-08-20] MEDS: CATAPRES PO SCH (09:59)
--- NOTE | 2017-08-20 10:42 | Progress Note ---
Assessment and Plan Assessment: Catheter associated bacteremia ESRD on HD Hypertension Diabetes Anemia Plan: S/p permacath exchange yesterday. Abx per ID. Currently stable cardiac status. Pt may discharge home from cardiology standpoint. Recommend follow up in our office with Sharla Medina NP, within 2 weeks of hospital discharge ([phone]). The patient has been seen in conjunction with Dr. Stanton who agrees with the assessment and plan of care. Subjective Date of service: 08/20/17 Principal diagnosis: bacteremia Interval history: pt resting in bed, no current cardiac complaints. s/p permacath exchange yesterday. Objective Last Vital Signs Temp 99.0 F 08/20/17 07:27 Pulse 87 08/20/17 07:27 Resp 20 08/20/17 07:27 BP 122/65 08/20/17 07:27 Pulse Ox 99 08/20/17 07:27 - Physical Examination General: No Apparent Distress HEENT: Positive: PERRL, Normocephaly, Mucus Membranes Moist Neck: Positive: neck supple, trachea midline Cardiac: Positive: Reg Rate and Rhythm, S1/S2 Lungs: Positive: clear to auscultation Neuro: Positive: Grossly Intact Abdomen: Positive: Unremarkable, Soft Skin: Positive: Clear. Negative: Rash Extremities: Present: normal. Absent: edema - Imaging and Cardiology Echo: report reviewed - EKG Sinus rhythms and dysrhythmias: sinus rhythm
--- NOTE | 2017-08-20 12:48 | Discharge Summary ---
Providers - Providers Date of Admission: 08/15/17 19:27 Attending physician: CARL PATE MD 08/15/17 18:14 Consult to Physician [CONS] Stat Comment: Consulting Provider: GABINO SEVERINO Physician Instructions: Reason For Exam: dialysis access infection 08/16/17 06:16 Consult to Physician [CONS] Routine Comment: Consulting Provider: CONSTANZA FAROOQ Physician Instructions: Reason For Exam: Bacteremia 08/17/17 10:58 Consult to Case Management [CONS] Stat Services Needed at Discharge: Other Notified:: on air director Additional Physician Instructions: [facility] Constanza Queen MD M [phone] O [phone] F [phone] OUTPATIENT PARENTERAL ANTIBIOTIC THERAPY ORDERS Diagnoses: E faecalis bacteremia and a cath associated vegetation Antimicrobial administration: vancomycin 1 g IV q 48h on HD total 6 weeks until 09/26/17. Lines:HD access Lab monitoring: CBC, CMP, CRP and vancomycin trough once a week preferly on Wednesday morning. Please fax results to [phone] and call [phone] for critical lab results. Constanza Queen Date: 08/19/17 08/18/17 13:04 Consult to Physician [CONS] Routine Comment: Consulting Provider: ASHKAN STAHL Physician Instructions: Reason For Exam: Replace dialysis access 08/18/17 13:06 Consult to Physician [CONS] Routine Comment: Consulting Provider: KENDRA HARVEY Physician Instructions: Reason For Exam: ARLIN confirmed RA vegetation Primary care physician: LAYAWAY CLERK Hospitalization Condition: Stable Disposition: DC/TX-06 HOME UNDER HOME HLTH Time spent for discharge: 32 minutes Exam - Constitutional Vitals: Temp Pulse Resp BP Pulse Ox 99.0 F 87 20 122/65 99 08/20/17 07:27 08/20/17 07:27 08/20/17 07:27 08/20/17 07:27 08/20/17 07:27 General appearance: Present: no acute distress, well-nourished - EENT Eyes: Present: PERRL, EOM intact ENT: hearing intact, clear oral mucosa - Neck Neck: Present: supple, normal ROM - Respiratory Respiratory effort: normal Respiratory: bilateral: CTA - Cardiovascular Rhythm: regular Heart Sounds: Present: S1 & S2. Absent: rub, click - Extremities Extremities: pulses symmetrical, No edema Peripheral Pulses: within normal limits - Abdominal General gastrointestinal: Present: soft, non-tender, non-distended, normal bowel sounds - Integumentary Integumentary: Present: clear, warm, dry - Musculoskeletal Musculoskeletal: gait normal, strength equal bilaterally - Psychiatric Psychiatric: appropriate mood/affect, intact judgment & insight - Neurologic Neurologic: CNII-XII intact, moves all extremities - Allied Health Allied health notes reviewed: nursing Plan Special Instructions: home health RN Follow up with: LIN ECHEVERRIA MD [Staff Physician] - 14 Days PRIMARY CARE, [Primary Care Provider] - 3-5 Days KATHY VALDEZ NP [Advanced Practice Nurse] - 14 Days
--- NOTE | 2017-08-20 13:22 | Progress Note ---
Subjective Date of service: 08/20/17 Principal diagnosis: bacteremia Interval history: NOTE ENTERED BY MISTAKE Objective - Constitutional Vitals: Vital Signs Temp Pulse Resp BP Pulse Ox 99.0 F 87 20 122/65 99 08/20/17 07:27 08/20/17 07:27 08/20/17 07:27 08/20/17 07:27 08/20/17 07:27 Temperature -Last 24 Hours Temperature 99.0 F Temperature 98.8 F Temperature 98.0 F Temperature 98.0 F - Labs CBC & Chem 7: 08/19/17 05:02 08/19/17 05:02 Labs: Abnormal lab results 08/19/17 Range/Units 20:44 POC Glucose 239 H (70-105)
--- NOTE | 2017-08-20 13:25 | Progress Note ---
Assessment and Plan Assessment: 1) Catheter-associated bacteremia and vegetation attached to the cath tip: likely due to E faecalis -HD cath was removed at [facility] -new HD cath placed and exchanged by vascular on 08/20 -E faecalis sensitive to amp/vanco in blood cx on 08/12 at [facility] -repeat blood cultures on 08/15 negative -ARLIN an intraluminal filling defect attached to the catheter ? infected thrombus. 2) ESRD on HD 3) DM 4) HTN Plan: -continue vancomycin IV renally dosed -upon discharge will do vancomycin 1 g IV q 48h on HD total 6 weeks until . -ID clinic f/u in 1 week I am signing off Thank you for your consultation, will follow up with you. Constanza Shannon MD Infectious Diseases Specialist [facility] M [phone] O [phone] Subjective Date of service: 08/20/17 Principal diagnosis: bacteremia Interval history: Feels ok Microbiology: Blood cultures: 08/15 neg 08/12 E faecalis at [facility] Current Antimicrobials: vanco 08/15 Previous Antimicrobials: levaquin Objective - Exam Narrative Exam: General appearance: Alert in NAD, conversant, obese Eyes: anicteric sclerae, moist conjunctivae; no lid-lag; PERRLA HENT: Atraumatic; oropharynx clear Neck: Trachea midline; supple, no thyromegaly or lymphadenopathy Lungs: CTA, with normal respiratory effort and no intercostal retractions CV: RRR, no murmurs Abdomen: Soft, non-tender; no masses or hepatosplenomegaly Extremities: No peripheral edema or extremity lymphadenopathy Skin: Normal temperature, turgor and texture; no rash, ulcers or subcutaneous nodules Psych: Appropriate affect, alert and oriented to person, place and time. Neuro: alert and oriented x 3. Moving all extermities Lines: right AVF, left SC HD access - Constitutional Vitals: Vital Signs Temp Pulse Resp BP Pulse Ox 99.0 F 87 20 122/65 99 08/20/17 07:27 08/20/17 07:27 08/20/17 07:27 08/20/17 07:27 08/20/17 07:27 Temperature -Last 24 Hours Temperature 99.0 F Temperature 98.8 F Temperature 98.0 F Temperature 98.0 F - Labs CBC & Chem 7: 08/19/17 05:02 08/19/17 05:02 Labs: Abnormal lab results 08/19/17 Range/Units 20:44 POC Glucose 239 H (70-105)
[2017-08-21] MEDS ORDERED: VANCOMYCIN/0.45 NS 1 GM/250 ML 1 GM/250 ML BAG IV SCH (20:00)
== END 2017-08-20 13:15 | disposition home health service (06) | DRG 252 ==
LOC: ED 12:19 → 3A 19:27
PROVIDERS: ADMIT Internal Medicine; ATTEND Internal Medicine
PROC: 5A1D70Z Performance of Urinary Filtration, Intermittent, Less than 6 Hours Per Day (ICD-10-PCS; 2017-08-17)
PROC: 05743ZZ Dilation of Left Innominate Vein, Percutaneous Approach (ICD-10-PCS; principal; 2017-08-19)
PROC: 027V3ZZ Dilation of Superior Vena Cava, Percutaneous Approach (ICD-10-PCS; 2017-08-19)
PROC: B5181ZZ Fluoroscopy of Superior Vena Cava using Low Osmolar Contrast (ICD-10-PCS; 2017-08-19)
PROC: 02PY33Z Removal of Infusion Device from Great Vessel, Percutaneous Approach (ICD-10-PCS; 2017-08-19)
PROC: 02H633Z Insertion of Infusion Device into Right Atrium, Percutaneous Approach (ICD-10-PCS; 2017-08-19)
PROC: 0J2TXYZ Change Other Device in Trunk Subcutaneous Tissue and Fascia, External Approach (ICD-10-PCS; 2017-08-19)
PROC: 5A1D70Z Performance of Urinary Filtration, Intermittent, Less than 6 Hours Per Day (ICD-10-PCS; 2017-08-19)
DX: T82.7XXA Infection and inflammatory reaction due to other cardiac and vascular devices, implants and grafts, initial encounter (principal); N18.6 End stage renal disease; I12.0 Hypertensive chronic kidney disease with stage 5 chronic kidney disease or end stage renal disease; R78.81 Bacteremia; I82.290 Acute embolism and thrombosis of other thoracic veins; Z68.42 Body mass index [BMI] 45.0-49.9, adult; Z99.2 Dependence on renal dialysis; E87.6 Hypokalemia; E11.22 Type 2 diabetes mellitus with diabetic chronic kidney disease; Z87.442 Personal history of urinary calculi; Z90.49 Acquired absence of other specified parts of digestive tract; Z88.8 Allergy status to other drugs, medicaments and biological substances; Y84.6 Urinary catheterization as the cause of abnormal reaction of the patient, or of later complication, without mention of misadventure at the time of the procedure; Y92.89 Other specified places as the place of occurrence of the external cause; D63.1 Anemia in chronic kidney disease; B96.89 Other specified bacterial agents as the cause of diseases classified elsewhere; Z79.4 Long term (current) use of insulin; E66.01 Morbid (severe) obesity due to excess calories; Z71.3 Dietary counseling and surveillance
CPT/HCPCS: 36415; 36581; 37248; 77001; 80048; 80053; 80074; 80202; 82140; 82805; 82962; 83036; 85025; 85027; 85610; 86850; 86900; 86901; 87040; 93306; 93312; 93320; 93325; C1725; C1750; C1769; J0360; J0692; J0885; J1644; J1815; J1956; J2250; J3010; J3370; J7050; Q9967

== ENCOUNTER 2017-09-13 11:56 | Inpatient (IN) | payer MEDICARE ==
[2017-09-13 13:16] LABS: Basophils # (Auto) 0.1 K/mm3 (0.0-0.1); Basophils % (Auto) 1.4 % (0.0-1.8); Eosinophils # (Auto) 0.1 K/mm3 (0.0-0.4); Eosinophils % (Auto) 1.3 % (0.0-4.3); Lymphocytes # (Auto) 0.9 K/mm3 (1.2-5.4); Lymphocytes % (Auto) 15.2 % (13.4-35.0); Mean Corpuscular HGB Conc 32 % (30-34); Mean Corpuscular Hemoglobin 28 pg (28-32); Mean Corpuscular Volume 86 fl (79-97); Monocytes # (Auto) 0.2 K/mm3 (0.0-0.8); Monocytes % (Auto) 3.8 % (0.0-7.3); Platelet Count 172 K/mm3 (140-440); Red Blood Count 2.91 M/mm3 (3.65-5.03); Red Cell Distribution Width 18.7 % (13.2-15.2)
[2017-09-13 13:26] LABS: INR 0.95 (0.87-1.13)
[2017-09-13 13:27] LABS: Partial Thromboplastin Time 22.7 Sec. (24.2-36.6)
[2017-09-13 13:44] LABS: Calcium 7.9 mg/dL (8.4-10.2)
[2017-09-13] MEDS ORDERED: XYLOCAINE 2% INFILTRATI ONE (16:04)
[2017-09-13] MEDS ORDERED: HEPARIN 10,000 UNITS/10 ML ONE (16:04)
[2017-09-13] MEDS ORDERED: SUBLIMAZE ONE (16:05)
[2017-09-13] MEDS ORDERED: HEPARIN/NS 5000 UNIT/500ML(CATH LAB) 500 ML IR ONE (16:35)
[2017-09-13] MEDS: VERSED ONE ×2 (16:49→16:55)
--- NOTE | 2017-09-13 17:07 | Operative Report ---
Operative Report Operative Report: EXAM: FLUOROSCOPIC GUIDED EXCHANGE OF TUNNELED HEMODIALYSIS CATHETER, VENOPLASTY OF CENTRAL VEINS CLINICAL INDICATION: PATIENT WITH A HISTORY OF LEFT CHEST WALL TUNNELED HEMODIALYSIS CATHETER THAT IS NO LONGER WORKING DATE: PROCEDURE: Following an explanation of the risks, benefits and alternatives; written informed consent was obtained. The patient was brought to the angiographic suite and placed in supine position on the examination table. Initial evaluation of her left chest wall demonstrated appropriate positioning of her indwelling tunneled hemodialysis catheter. The patient's left chest wall and indwelling tunneled hemodialysis catheter were prepped and draped in the usual sterile fashion. 1% lidocaine was used for anesthesia. The catheter cuff was then freed using a combination of sharp and blunt dissection. The catheter was then withdrawn proximally and contrast injected through the venous port. This demonstrated some stenosis involving the central veins and the presence of a 5 Kenyan sheath. A 0.035 guidewire was advanced through the catheter into the IVC and the catheter removed. A 7 Kenyan 21 cm sheath was then placed over the catheter and advanced centrally. An 8 mm x 40 mm balloon was then used to break up the fibrin sheath and also for venoplasty of the central veins. The balloon was then removed. The sheath was removed and a new 23 cm Bard glidepath tunneled hemodialysis catheter was then advanced over the guidewire and position with the tip in the cavoatrial junction. The guidewire was removed. Both ports flushed and aspirated easily and were then locked with appropriate volumes of heparin. The catheter was securely fastened of the skin using 2-0 Ethilon suture and a sterile dressing applied. The patient tolerated the procedure well. There were no immediate post procedure complications. Conscious sedation was performed under the guidance of radiologic nursing. Continuous cardiopulmonary monitoring was utilized. IMPRESSION: 1) Venogram demonstrating the presence of a fibrin sheath as well as narrowing of the central veins. 2) Venoplasty as described. 3) Fluoroscopic guided exchange of tunneled central venous catheter.
--- NOTE | 2017-09-13 17:08 | Short Stay Summary ---
Short Stay Documentation Date of service: 09/13/17 - History Principal diagnosis: Malfunctioning hemodialysis access H&P: obtained from office - Allergies and Medications Current Medications: Allergies warfarin sodium [From Coumadin] Allergy (Verified 07/28/17 15:38) Hives Home Medications Medication Instructions Recorded Confirmed Last Taken Type RX: glipiZIDE [glipiZIDE XL] 10 mg PO BID 07/04/13 09/13/17 09/12/17 History RX: Sevelamer Carbonate [Renvela] 400 mg PO TID 04/25/14 09/13/17 09/12/17 History RX: Acetaminophen [Tylenol Extra 500 mg PO DAILY PRN 07/28/17 09/13/17 09/12/17 History Strength] RX: Aspirin [Low Dose Aspirin EC] 81 mg PO DAILY 07/28/17 09/13/17 09/12/17 History RX: Metoprolol [Lopressor TAB] 50 mg PO BID 07/28/17 09/13/17 09/12/17 History RX: cloNIDine [Catapres] 0.2 mg PO DAILY 07/28/17 09/13/17 09/12/17 History - Brief post op/procedure progress note Date of procedure: 09/13/17 Pre-op diagnosis: Malfunctioning hemodialysis access Post-op diagnosis: same Procedure: Venoplasty, Catheter exchange Anesthesia: local Surgeon: ASHKAN PORTILLO Estimated blood loss: minimal Pathology: none Condition: stable - Disposition Condition at discharge: Good Disposition: [id number] IP Short Stay Discharge Plan Activity: advance as tolerated Weight Bearing Status: Weight Bear as Tolerated Diet: regular Wound: keep clean and dry, per your surgeon's advice Follow up with: MARCO ANDERS MD [Primary Care Provider] - 7 Days
[2017-09-13] MEDS ORDERED: NACL 0.9% 100 ML IV PRN ×2 (17:11→17:12)
[2017-09-13] MEDS ORDERED: HEPARIN IV PRN (17:12)
--- NOTE | 2017-09-13 17:19 | Consultation ---
History of Present Illness - Reason for Consult Consult date: 09/13/17 end stage renal disease, hyperkalemia Requesting physician: ASHKAN PORTILLO - History of Present Illness This is a 42 yo AAF with past medical history of hypertension, end-stage disease on home HD, via L IJ permcath, enterococcal bacteremia, who was admitted for permcath malfunction and permcath exchange. Patient underwent procedure without complications, however was noted to be fluid overloaded, with SOB, MOSLEY. Renal consult requested for management of ESRD/HD. Pt's last HD was on Sat however received only partial treatment due to permcath malfunction. Pt seen and examined in HD unit, in moderate respiratory distress, using accessory resp muscles, speaking in short sentences. Denies fever, chills, nausea, vomiting, dysuria, chest pain, palpitations, abd pain, dysuria. Past History Past Medical History: anemia, hypertension, renal failure Past Surgical History: cholecystectomy, Other (permcath placement/exchange ) Social history: denies: smoking, alcohol abuse, prescription drug abuse, IV drug use Family history: hypertension Medications and Allergies Allergies Allergy/AdvReac Type Severity Reaction Status Date / Time warfarin sodium Allergy Hives Verified 07/28/17 15:38 [From Coumadin] Home Medications Medication Instructions Recorded Confirmed Last Taken Type glipiZIDE [glipiZIDE XL] 10 mg PO BID 07/04/13 09/13/17 09/12/17 History Sevelamer Carbonate [Renvela] 400 mg PO TID 04/25/14 09/13/17 09/12/17 History Acetaminophen [Tylenol Extra 500 mg PO DAILY PRN 07/28/17 09/13/17 09/12/17 History Strength] Aspirin [Low Dose Aspirin EC] 81 mg PO DAILY 07/28/17 09/13/17 09/12/17 History Metoprolol [Lopressor TAB] 50 mg PO BID 07/28/17 09/13/17 09/12/17 History cloNIDine [Catapres] 0.2 mg PO DAILY 07/28/17 09/13/17 09/12/17 History Active Meds: Active Medications Heparin Sodium (Porcine) (Heparin) 5,000 unit IV MORE PRN PRN Reason: hemodialysis Sodium Chloride (Nacl 0.9%) 100 mls @ 999 mls/hr IV MORE PRN PRN Reason: Hypotension Sodium Chloride (Nacl 0.9%) 100 mls @ 999 mls/hr IV MORE PRN PRN Reason: Hypotension Review of Systems All systems: negative Constitutional: weakness Cardiovascular: shortness of breath, dyspnea on exertion Exam - Vital Signs Vital signs: Vital Signs Temp Pulse Resp BP Pulse Ox 98.6 F 96 H 18 207/121 95 09/13/17 12:45 09/13/17 12:45 09/13/17 12:45 09/13/17 12:45 09/13/17 12:45 - General Appearance General appearance: well-developed, well-nourished, appears stated age, obese EENT: ATNC, PERRL, mucous membranes moist Neck: Present: neck supple Respiratory: Decreased Breath Sounds Heart: regular, S1S2 Gastrointestinal: Present: normoactive bowel sounds, obese Integumentary: no rash, other Neurologic: no focal deficit, alert and oriented x3, strength 5/5, CN 3-12 intact Psychiatric: mood/affect appropriate, cooperative Results - Lab Results 09/13/17 13:06 09/13/17 13:06 Most recent lab results Calcium 7.9 mg/dL (8.4-10.2) L 09/13/17 13:06 Assessment and Plan - Patient Problems (1) ESRD (end stage renal disease) on dialysis Current Visit: No Status: Chronic Plan to address problem: HD today for volume control, to target UF 2-3L as tolerated. Cont HD TTS schedule thereafter (2) Complication of vascular access for dialysis Current Visit: Yes Status: Acute Plan to address problem: appreciate vascular surgery input, s/p permcath exchange (3) Hyperkalemia Current Visit: No Status: Acute Plan to address problem: will correct with HD using 2 K bath (4) Hypertensive chronic kidney disease with stage 5 chronic kidney disease or end stage renal disease Current Visit: No Status: Acute Plan to address problem: resume home BP meds. Will target UF 2-3L as tolerated for further volume/BP control (5) T2DM (type 2 diabetes mellitus) Current Visit: No Status: Chronic Qualifiers: Diabetes mellitus chcf insulin use: without intermediate frame tender use Chronic kidney disease stage: on chronic dialysis Plan to address problem: glucose control as per primary attending
[2017-09-13] MEDS ORDERED: LOPRESSOR PO NR (22:00)
--- NOTE | 2017-09-13 23:51 | History and Physical Report ---
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 Patient had a Vas-Cath malfunction on 09/11/2016 and did not get dialysis. Patient has been short of breath for the last 1 day. No shortness of breath no fever no chills patient in mild respiratory distress and using accessory muscles of respiration. Past History Past Medical History: anemia, hypertension, renal failure Past Surgical History: cholecystectomy, Other (permcath placement/exchange ) Social history: denies: smoking, alcohol abuse, prescription drug abuse, IV drug use Family history: hypertension Past History Past Medical History: anemia, hypertension, renal failure Past Surgical History: cholecystectomy, Other (permcath placement/exchange ) Social history: denies: smoking, alcohol abuse, prescription drug abuse, IV drug use Family history: hypertension Medications and Allergies Allergies Allergy/AdvReac Type Severity Reaction Status Date / Time warfarin sodium Allergy Hives Verified 07/28/17 15:38 [From Coumadin] Home Medications Medication Instructions Recorded Confirmed Last Taken Type glipiZIDE [glipiZIDE XL] 10 mg PO BID 07/04/13 09/13/17 09/12/17 History Sevelamer Carbonate [Renvela] 400 mg PO TID 04/25/14 09/13/17 09/12/17 History Acetaminophen [Tylenol Extra 500 mg PO DAILY PRN 07/28/17 09/13/17 09/12/17 History Strength] Aspirin [Low Dose Aspirin EC] 81 mg PO DAILY 07/28/17 09/13/17 09/12/17 History Metoprolol [Lopressor TAB] 50 mg PO BID 07/28/17 09/13/17 09/12/17 History cloNIDine [Catapres] 0.2 mg PO DAILY 07/28/17 09/13/17 09/12/17 History Active Meds: Active Medications Heparin Sodium (Porcine) (Heparin) 5,000 unit IV MORE PRN PRN Reason: hemodialysis Sodium Chloride (Nacl 0.9%) 100 mls @ 999 mls/hr IV MORE PRN PRN Reason: Hypotension Sodium Chloride (Nacl 0.9%) 100 mls @ 999 mls/hr IV MORE PRN PRN Reason: Hypotension Influenza Virus Vaccine Quadrival (Fluarix Quad [id number](36 Mos+) 0.5 ml IM .ONCE ONE Stop: 09/14/17 12:01 Metoprolol Tartrate (Lopressor) 50 mg PO ONCE NR Stop: 09/13/17 23:59 Last Admin: 09/13/17 21:23 Dose: 50 mg Review of Systems All systems: negative Constitutional: weight gain, no fever, no chills, no sweats, no night sweats Ears, nose, mouth and throat: no hoarseness, no sore throat, no swelling in mouth, no swelling in throat Breasts: deferred Cardiovascular: shortness of breath, dyspnea on exertion, no chest pain, no orthopnea, no palpitations, no rapid/irregular heart beat, no edema, no syncope , no lightheadedness Respiratory: dyspnea on exertion, no cough, no cough with sputum, no excessive sputum, no hemoptysis, no shortness of breath Gastrointestinal: no abdominal pain, no nausea, no vomiting, no diarrhea, no constipation, no change in bowel habits, no hematemesis, no coffee ground emesis Genitourinary Female: no dysuria, no urinary frequency, no urgency Rectal: no pain Musculoskeletal: no neck stiffness, no neck pain, no shooting arm pain, no arm numbness/tingling Integumentary: no rash, no pruritis, no redness, no sores, no wounds Neurological: no seizures, no syncope Psychiatric: no anxiety, no memory loss, no change in sleep habits, no sleep disturbances, no insomnia Endocrine: no cold intolerance, no heat intolerance, no polyphagia, no excessive thirst, no polydipsia, no polyuria Hematologic/Lymphatic: no easy bruising, no easy bleeding Allergic/Immunologic: no urticaria, no allergic rhinitis, no wheezing Exam - Constitutional Vitals: Temp Pulse Resp BP Pulse Ox 99.2 F 110 H 18 193/93 99 09/13/17 20:40 09/13/17 23:41 09/13/17 23:41 09/13/17 21:00 09/13/17 23:41 General appearance: Present: mild distress, well-nourished - EENT Eyes: Present: PERRL ENT: hearing intact, clear oral mucosa - Neck Neck: Present: supple, normal ROM - Respiratory Respiratory effort: normal Respiratory: bilateral: CTA - Cardiovascular Heart rate: 80 Rhythm: regular Heart Sounds: Present: S1 & S2. Absent: rub, click - Extremities Extremities: no ischemia, pulses intact, pulses symmetrical, No edema Peripheral Pulses: within normal limits - Abdominal General gastrointestinal: Present: soft, non-tender, non-distended, normal bowel sounds Female genitourinary: Present: normal - Rectal Rectal Exam: deferred - Integumentary Integumentary: Present: clear, warm, dry - Musculoskeletal Musculoskeletal: gait normal, strength equal bilaterally - Psychiatric Psychiatric: appropriate mood/affect, intact judgment & insight - Neurologic Neurologic: CNII-XII intact, moves all extremities - Allied Health Allied health notes reviewed: nursing, case management Results - Labs CBC & Chem 7: 09/13/17 13:06 09/13/17 13:06 Labs: Laboratory Last Values WBC 5.7 K/mm3 (4.5-11.0) 09/13/17 13:06 RBC 2.91 M/mm3 (3.65-5.03) L 09/13/17 13:06 Hgb 8.0 gm/dl (10.1-14.3) L 09/13/17 13:06 Hct 25.0 % (30.3-42.9) L 09/13/17 13:06 MCV 86 fl (79-97) 09/13/17 13:06 MCH 28 pg (28-32) 09/13/17 13:06 MCHC 32 % (30-34) 09/13/17 13:06 RDW 18.7 % (13.2-15.2) H 09/13/17 13:06 Plt Count 172 K/mm3 (140-440) 09/13/17 13:06 Lymph % (Auto) 15.2 % (13.4-35.0) 09/13/17 13:06 [place] % (Auto) 3.8 % (0.0-7.3) 09/13/17 13:06 Eos % (Auto) 1.3 % (0.0-4.3) 09/13/17 13:06 Baso % (Auto) 1.4 % (0.0-1.8) 09/13/17 13:06 Lymph # 0.9 K/mm3 (1.2-5.4) L 09/13/17 13:06 [place] # 0.2 K/mm3 (0.0-0.8) 09/13/17 13:06 Eos # 0.1 K/mm3 (0.0-0.4) 09/13/17 13:06 Baso # 0.1 K/mm3 (0.0-0.1) 09/13/17 13:06 Seg Neutrophils % 78.3 % (40.0-70.0) H 09/13/17 13:06 Seg Neutrophils # 4.5 K/mm3 (1.8-7.7) 09/13/17 13:06 PT 13.1 Sec. (12.2-14.9) 09/13/17 13:06 INR 0.95 (0.87-1.13) 09/13/17 13:06 APTT 22.7 Sec. (24.2-36.6) L 09/13/17 13:06 Sodium 139 mmol/L (137-145) 09/13/17 13:06 Potassium 5.4 mmol/L (3.6-5.0) H 09/13/17 13:06 Chloride 99.3 mmol/L (98-107) 09/13/17 13:06 Carbon Dioxide 19 mmol/L (22-30) L 09/13/17 13:06 Anion Gap 26 mmol/L 09/13/17 13:06 BUN 70 mg/dL (7-17) H 09/13/17 13:06 Creatinine 12.7 mg/dL (0.7-1.2) H 09/13/17 13:06 Estimated GFR 4 ml/min 09/13/17 13:06 BUN/Creatinine Ratio 6 % 09/13/17 13:06 Glucose 127 mg/dL (65-100) H 09/13/17 13:06 Calcium 7.9 mg/dL (8.4-10.2) L 09/13/17 13:06 Assessment and Plan Advance Directives: Yes (full code) VTE prophylaxis?: Chemical Plan of care discussed with patient/family: Yes - Patient Problems (1) Volume overload Current Visit: Yes Status: Acute Plan to address problem: Patient to go for emergent hemodialysis (2) Anemia in chronic illness Current Visit: No Status: Chronic Plan to address problem: Patient to be on Neupogen (3) Hypertension Current Visit: Yes Status: Chronic Qualifiers: Hypertension type: essential hypertension Qualified Code(s): I10 - Essential (primary) hypertension Plan to address problem: Continue antihypertensives (4) T2DM (type 2 diabetes mellitus) Current Visit: Yes Status: Chronic Qualifiers: 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
[2017-09-13] MEDS ORDERED: ZOFRAN IV PRN (23:54)
[2017-09-13] MEDS ORDERED: SODIUM CHLORIDE FLUSH SYRINGE 10 ML IV PRN (23:54)
[2017-09-13] MEDS ORDERED: PERCOCET 5/325 PO PRN (23:54)
[2017-09-13] MEDS ORDERED: MORPHINE IV PRN (23:54)
[2017-09-14] MEDS ORDERED: AMBIEN PO PRN (00:30)
[2017-09-14] MEDS: CATAPRES PO SCH ×2 (01:00→11:11)
[2017-09-14 06:55] LABS: Basophils # (Auto) 0.1 K/mm3 (0.0-0.1); Basophils % (Auto) 0.7 % (0.0-1.8); Eosinophils # (Auto) 0.1 K/mm3 (0.0-0.4); Hemoglobin 8.1 gm/dl (10.1-14.3); Lymphocytes # (Auto) 0.9 K/mm3 (1.2-5.4); Lymphocytes % (Auto) 9.8 % (13.4-35.0); Mean Corpuscular HGB Conc 32 % (30-34); Mean Corpuscular Hemoglobin 28 pg (28-32); Mean Corpuscular Volume 85 fl (79-97); Monocytes # (Auto) 0.5 K/mm3 (0.0-0.8); Monocytes % (Auto) 6.3 % (0.0-7.3); Platelet Count 173 K/mm3 (140-440); Red Blood Count 2.93 M/mm3 (3.65-5.03)
[2017-09-14 06:57] LABS: Red Cell Distribution Width 20.3 % (13.2-15.2)
[2017-09-14 07:19] LABS: Albumin 3.7 g/dL (3.9-5); Calcium 7.4 mg/dL (8.4-10.2)
[2017-09-14] MEDS ORDERED: RENVELA PO SCH ×2 (08:00)
[2017-09-14] MEDS: TYLENOL PO PRN ×2 (09:01→15:40)
[2017-09-14] MEDS: RENVELA PO SCH ×3 (09:02→17:36)
[2017-09-14] MEDS: HumaLOG SUB-Q SCH ×3 (09:51→17:36)
[2017-09-14] MEDS ORDERED: HEPARIN SUB-Q SCH (10:00)
[2017-09-14] MEDS ORDERED: LOPRESSOR PO SCH (10:00)
[2017-09-14] MEDS ORDERED: PEPCID PO SCH (10:00)
[2017-09-14] MEDS ORDERED: SODIUM CHLORIDE FLUSH SYRINGE 10 ML IV SCH (10:00)
[2017-09-14] MEDS ORDERED: HALFPRIN EC PO SCH (10:00)
[2017-09-14] MEDS ORDERED: HEPARIN 10,000 UNITS/10 ML ONE (10:09)
--- NOTE | 2017-09-14 11:37 | Progress Note ---
Assessment and Plan - Patient Problems (1) ESRD (end stage renal disease) on dialysis Current Visit: No Status: Chronic Plan to address problem: Cont HD TTS schedule. vanco 1g post HD for treatment of enterococal bacteremia (2) Complication of vascular access for dialysis Current Visit: Yes Status: Acute Plan to address problem: appreciate vascular surgery input, s/p permcath exchange (3) Hyperkalemia Current Visit: No Status: Acute Plan to address problem: to correct with HD (4) Hypertensive chronic kidney disease with stage 5 chronic kidney disease or end stage renal disease Current Visit: No Status: Acute Plan to address problem: resume home BP meds. Will target UF 2-3L as tolerated for further volume/BP control (5) T2DM (type 2 diabetes mellitus) Current Visit: No Status: Chronic Qualifiers: Diabetes mellitus half-way insulin use: without half-way use Chronic kidney disease stage: on chronic dialysis Plan to address problem: glucose control as per primary attending Subjective Date of service: 09/14/17 Principal diagnosis: Malfunctioning hemodialysis access Interval history: pt seen and examined during HD, in no acute distress, no new complaints. Objective - Vital Signs Vital signs: Vital Signs - 12hr 09/13/17 09/14/17 09/14/17 23:41 00:14 04:42 Temperature 99.6 F 98.8 F Pulse Rate 110 H 106 H 176 H Respiratory 18 22 20 Rate Blood Pressure 143/90 166/85 O2 Sat by Pulse 99 99 95 Oximetry 09/14/17 09/14/17 09/14/17 07:36 09:01 09:52 Temperature 98.4 F 98.4 F Pulse Rate 93 H 90 Respiratory 20 18 18 Rate Blood Pressure 148/110 153/117 O2 Sat by Pulse 97 Oximetry 09/14/17 09/14/17 09/14/17 10:10 10:15 10:30 Temperature Pulse Rate 88 87 86 Respiratory Rate Blood Pressure 188/88 184/93 196/151 O2 Sat by Pulse Oximetry 09/14/17 09/14/17 09/14/17 10:45 11:00 11:11 Temperature Pulse Rate 86 89 86 Respiratory Rate Blood Pressure 204/90 185/98 204/90 O2 Sat by Pulse Oximetry 09/14/17 11:15 Temperature Pulse Rate 42 L Respiratory Rate Blood Pressure 102/78 O2 Sat by Pulse Oximetry - General Appearance General appearance: well-developed, well-nourished, appears stated age, obese EENT: ATNC, PERRL, mucous membranes moist Neck: no JVD Respiratory: Present: Clear to Ascultation Cardiology: regular, S1S2 Gastrointestinal: normoactive bowel sounds, obese Integumentary: no rash, other (no edema ) Neurologic: no focal deficit, alert and oriented x3, strength 5/5, CN 3-12 intact Psychiatric: mood/affect appropriate, cooperative - Lab 09/14/17 06:27 09/14/17 06:27 Most recent lab results Calcium 7.4 mg/dL (8.4-10.2) L 09/14/17 06:27
[2017-09-14] MEDS ORDERED: Fluarix Quad 2017-2018(36 MOS+ IM ONE (12:00)
[2017-09-14] MEDS ORDERED: VANCOMYCIN PHARMACY TO DOSE IV SCH (12:00)
[2017-09-14] MEDS ORDERED: VANCOMYCIN/NS 1 GM/250 ML 1 GM/250 ML BAG IV SCH (12:00)
[2017-09-14] MEDS ORDERED: VANCOMYCIN 2,000 MG in NACL 0.9% 500 ML 500 ML IV ONE (13:00)
--- NOTE | 2017-09-14 13:26 | Progress Note ---
Assessment and Plan Brief history: Radiological test: Hospitalist Physical exam: GENERAL: well-developed and well-nourished lying on bed appeared to be in no discomfort. HEENT: Normocephalic. Atraumatic. No conjunctival congestion or icterus. Patient has moist mucous membranes. NECK: Supple. Trachea midline. CHEST/LUNGS: Clear to auscultated bilaterally, breathing nonlabored. No wheezes crackles or rhonchi. HEART/CARDIOVASCULAR: Regular in rate and rhythm. S1 and S2 positive. ABDOMEN: Abdomen is soft, nontender. Patient has normal bowel sounds. SKIN: There is no rash. Warm and dry. NEURO: No focal motor deficit. Follows command. MUSCULOSKELETAL: No joint effusion or tenderness. EXTRIMITY: No edema, no cyanosis or clubbing. PSYCH: Cooperative. Subjective Date of service: 09/14/17 Principal diagnosis: Malfunctioning hemodialysis access Interval history: Patient seen and examined. Medical records and medication list reviewed. No acute event overnight noted by the RN. Patient denies any chest pain or difficulty breathing. Patient is tolerating diet. Discussed plan of care at bedside with patient. Objective - Constitutional Vitals: Vital Signs - 12hr 09/14/17 09/14/17 09/14/17 04:42 07:36 09:01 Temperature 98.8 F 98.4 F Pulse Rate 176 H 93 H Respiratory 20 20 18 Rate Blood Pressure 166/85 148/110 O2 Sat by Pulse 95 97 Oximetry 09/14/17 09/14/17 09/14/17 09:52 10:10 10:15 Temperature 98.4 F Pulse Rate 90 88 87 Respiratory 18 Rate Blood Pressure 153/117 188/88 184/93 O2 Sat by Pulse Oximetry 09/14/17 09/14/17 09/14/17 10:30 10:45 11:00 Temperature Pulse Rate 86 86 89 Respiratory Rate Blood Pressure 196/151 204/90 185/98 O2 Sat by Pulse Oximetry 09/14/17 09/14/17 09/14/17 11:11 11:15 11:30 Temperature Pulse Rate 86 42 L 86 Respiratory Rate Blood Pressure 204/90 102/78 184/62 O2 Sat by Pulse Oximetry 09/14/17 09/14/17 09/14/17 11:45 12:00 12:15 Temperature Pulse Rate 82 80 79 Respiratory Rate Blood Pressure 182/94 197/168 198/80 O2 Sat by Pulse Oximetry - Labs CBC & Chem 7: 09/14/17 06:27 18 06:27 Labs: Abnormal lab results 09/13/17 09/13/17 09/14/17 Range/Units 13:06 13:06 05:57 RBC (3.65-5.03) M/mm3 Hgb (10.1-14.3) gm/dl Hct (30.3-42.9) % RDW (13.2-15.2) % Lymph % (Auto) (13.4-35.0) % Lymph # (1.2-5.4) K/mm3 Seg Neutrophils % (40.0-70.0) % APTT 22.7 L (24.2-36.6) Sec. Sodium (137-145) mmol/L Potassium 5.4 H (3.6-5.0) mmol/L Chloride (98-107) mmol/L Carbon Dioxide 19 L (22-30) mmol/L BUN 70 H (7-17) mg/dL Creatinine 12.7 H (0.7-1.2) mg/dL Glucose 127 H (65-100) mg/dL POC Glucose 162 H (70-105) Calcium 7.9 L (8.4-10.2) mg/dL ALT (7-56) units/L Albumin (3.9-5) g/dL 18 18 Range/Units 06:27 06:27 RBC 2.93 L (3.65-5.03) M/mm3 Hgb 8.1 L (10.1-14.3) gm/dl Hct 25.0 L (30.3-42.9) % RDW 20.3 H (13.2-15.2) % Lymph % (Auto) 9.8 L (13.4-35.0) % Lymph # 0.9 L (1.2-5.4) K/mm3 Seg Neutrophils % 82.2 H (40.0-70.0) % APTT (24.2-36.6) Sec. Sodium 135 L (137-145) mmol/L Potassium (3.6-5.0) mmol/L Chloride 94.5 L (98-107) mmol/L Carbon Dioxide (22-30) mmol/L BUN 43 H (7-17) mg/dL Creatinine 8.9 H (0.7-1.2) mg/dL Glucose 137 H (65-100) mg/dL POC Glucose (70-105) Calcium 7.4 L (8.4-10.2) mg/dL ALT 6 L (7-56) units/L Albumin 3.7 L (3.9-5) g/dL
[2017-09-14] MEDS ORDERED: NACL 0.9 (PRIMING MACHINE ONLY DIALYSIS) MC ONE (14:34)
[2017-09-14 14:59] VITALS: BP 142/90
--- NOTE | 2017-09-14 15:32 | Discharge Summary ---
Providers - Providers Date of Admission: 09/13/17 14:28 Date of discharge: 09/14/17 Attending physician: RICHY MANCIA 09/13/17 Consult to Case Management [CONS] Routine Services Needed at Discharge: Home Health Services Notified:: copy given 09/13/17 15:03 Consult to Physician [CONS] Routine Comment: Consulting Provider: ELLEN GUZMÁN Physician Instructions: Dr Guzmán consulted for hemodialysis orders Reason For Exam: ESRD Primary care physician: MARCO ANDERS Hospitalization Condition: Good Hospital course: This is a 42 yo AAF with past medical history of hypertension, end-stage disease on home HD, via L IJ permcath, enterococcal bacteremia, who was admitted for permcath malfunction and permcath exchange. Patient underwent permcath exchange by vascular surgeon without complications, however was noted to be fluid overloaded, with SOB and MOSLEY. She was admitted for further evaluation and management. Renal consult requested for emergent ESRD/HD. Pt's last HD was on Sat however received only partial treatment due to permcath malfunction. She was dialyzed with new pemcath and tolerated well. Home medication were given to control BP. She was then discharged home in stable condition. Discharge diagnosis: ESRD (end stage renal disease) on dialysis - s/p HD by nephrology. Cont HD TTS schedule thereafter following discharge Enterococcal bacteremia - given vancomycin with HD Complication of vascular access for dialysis - appreciate vascular surgery input, s/p permcath exchange Hyperkalemia - resolved with HD Hypertension - resumed home BP meds. BP was improved following discharge T2DM (type 2 diabetes mellitus) - cont home regimen Disposition: - TO HOME OR SELFCARE Time spent for discharge: 32 minutes Core Measure Documentation - Palliative Care Palliative Care/ Comfort Measures: Not Applicable - Core Measures Any of the following diagnoses?: none Exam - Constitutional Vitals: Temp Pulse Resp BP Pulse Ox 98.3 F 74 18 142/90 98 09/14/17 14:53 09/14/17 14:53 09/14/17 14:53 09/14/17 14:53 09/14/17 14:53 General appearance: Present: no acute distress, obese - EENT Eyes: Present: PERRL ENT: hearing intact, clear oral mucosa - Neck Neck: Present: supple, normal ROM - Respiratory Respiratory effort: normal Respiratory: bilateral: CTA - Cardiovascular Heart Sounds: Present: S1 & S2. Absent: rub, click - Extremities Extremities: pulses symmetrical, No edema Peripheral Pulses: within normal limits - Abdominal General gastrointestinal: Present: soft, non-tender, non-distended, normal bowel sounds - Integumentary Integumentary: Present: clear, warm, dry - Musculoskeletal Musculoskeletal: gait normal, strength equal bilaterally - Psychiatric Psychiatric: appropriate mood/affect, intact judgment & insight - Neurologic Neurologic: CNII-XII intact, moves all extremities Plan Activity: advance as tolerated Weight Bearing Status: Weight Bear as Tolerated Diet: diabetic, renal Follow up with: MARCO ANDERS MD [Primary Care Provider] - 7 Days
[2017-09-14] MEDS ORDERED: GLUCOTROL PO SCH (17:00)
== END 2017-09-14 18:05 | disposition home or self-care (01) | DRG 252 ==
LOC: CATHLABREC 11:56 → 3A 14:28
PROVIDERS: ADMIT Internal Medicine; ATTEND Internal Medicine
PROC: 5A1D70Z Performance of Urinary Filtration, Intermittent, Less than 6 Hours Per Day (ICD-10-PCS; 2017-09-13)
PROC: 3E0234Z Introduction of Serum, Toxoid and Vaccine into Muscle, Percutaneous Approach (ICD-10-PCS; principal; 2017-09-14)
PROC: 06703ZZ Dilation of Inferior Vena Cava, Percutaneous Approach (ICD-10-PCS; 2017-09-14)
PROC: 0JH63XZ Insertion of Tunneled Vascular Access Device into Chest Subcutaneous Tissue and Fascia, Percutaneous Approach (ICD-10-PCS; 2017-09-14)
PROC: 0JPT3XZ Removal of Tunneled Vascular Access Device from Trunk Subcutaneous Tissue and Fascia, Percutaneous Approach (ICD-10-PCS; 2017-09-14)
PROC: 02HV33Z Insertion of Infusion Device into Superior Vena Cava, Percutaneous Approach (ICD-10-PCS; 2017-09-14)
PROC: B5181ZA Fluoroscopy of Superior Vena Cava using Low Osmolar Contrast, Guidance (ICD-10-PCS; 2017-09-14)
PROC: B5191ZZ Fluoroscopy of Inferior Vena Cava using Low Osmolar Contrast (ICD-10-PCS; 2017-09-14)
DX: T82.41XA Breakdown (mechanical) of vascular dialysis catheter, initial encounter (principal); N18.6 End stage renal disease; E87.70 Fluid overload, unspecified; E87.5 Hyperkalemia; Y84.8 Other medical procedures as the cause of abnormal reaction of the patient, or of later complication, without mention of misadventure at the time of the procedure; I12.9 Hypertensive chronic kidney disease with stage 1 through stage 4 chronic kidney disease, or unspecified chronic kidney disease; E11.22 Type 2 diabetes mellitus with diabetic chronic kidney disease; D63.8 Anemia in other chronic diseases classified elsewhere; Y92.89 Other specified places as the place of occurrence of the external cause; Z90.49 Acquired absence of other specified parts of digestive tract; Z23 Encounter for immunization; Z82.49 Family history of ischemic heart disease and other diseases of the circulatory system; Z79.899 Other long term (current) drug therapy; Z79.82 Long term (current) use of aspirin
CPT/HCPCS: 36415; 36581; 37248; 77001; 80048; 80053; 82962; 83036; 85025; 85610; 85730; 90686; 99406; C1725; C1750; C1769; C1894; J1644; J1815; J2250; J3010; J3370; J7030; J7040; Q9967

== ENCOUNTER 2017-10-27 12:11 | Observation (INO) | payer MEDICARE ==
[2017-10-27] MEDS ORDERED: ANCEF/STERILE WATER 2 GM/20 ML IV NR (12:45)
[2017-10-27] MEDS ORDERED: NACL 0.9% 250ML 250 ML ONE (12:48)
[2017-10-27] MEDS ORDERED: HEPARIN 10,000 UNITS/10 ML ONE (12:48)
[2017-10-27] MEDS ORDERED: PROTAMINE SULFATE ONE (12:48)
[2017-10-27] MEDS ORDERED: MARCAINE 0.5% 0 ML INFILTRATI ONE (12:48)
[2017-10-27] MEDS ORDERED: NACL 0.9% 500 ML 500 ML ONE (12:48)
[2017-10-27] MEDS ORDERED: DIPRIVAN 10 MG/ML IV ONE (12:56)
[2017-10-27] MEDS ORDERED: XYLOCAINE MPF 2% ONE ×2 (12:57→14:52)
[2017-10-27] MEDS ORDERED: LOPRESSOR IV ONE (12:57)
[2017-10-27] MEDS ORDERED: VERSED IV NR (13:00)
[2017-10-27] MEDS ORDERED: NACL 0.9% 1000 ML 1,000 ML IV SCH (13:00)
--- NOTE | 2017-10-27 13:07 | Anesthesia Day of Surgery ---
Anesthesia Day of Surgery - Day of Surgery Patient Examined: Yes Patient H&P Reviewed: Yes Patient is NPO: Yes
--- NOTE | 2017-10-27 13:07 | Anesthesia Consultation ---
Anesthesia Consult and Med Hx Date of service: 10/27/17 - Airway Anesthetic Teeth Evaluation: Poor ROM Head & Neck: Inadequate Mental/Hyoid Distance: Inadequate Mallampati Class: Class IV Intubation Access Assessment: Possibly Difficult - Pulmonary Exam CTA: Yes - Cardiac Exam Cardiac Exam: RRR - Pre-Operative Health Status ASA Pre-Surgery Classification: ASA3 Proposed Anesthetic Plan: General - Pulmonary Hx Smoking: Yes Hx Sleep Apnea: Yes - Cardiovascular System Hx Hypertension: Yes - Central Nervous System Hx Psychiatric Problems: No - Endocrine Hx Renal Disease: Yes Hx End Stage Renal Disease: Yes (hd 5 months) Hx Non-Insulin Dependent Diabetes: Yes - Hematic Hx Anemia: Yes - Other Systems Hx Alcohol Use: Yes Hx Substance Use: Yes Hx Cancer: No
[2017-10-27] MEDS ORDERED: ZOFRAN IV PRN ×2 (13:30→14:36)
[2017-10-27] MEDS ORDERED: DILAUDID IV PRN (13:30)
[2017-10-27 14:15] LABS: Hematocrit 27.5 % (30.3-42.9); Hemoglobin 8.4 gm/dl (10.1-14.3)
[2017-10-27] MEDS ORDERED: TYLENOL PO PRN ×2 (14:36→14:38)
[2017-10-27] MEDS ORDERED: HEPARIN ONE (14:36)
[2017-10-27] MEDS ORDERED: PROVENTIL IH PRN (14:36)
[2017-10-27] MEDS ORDERED: SODIUM CHLORIDE FLUSH SYRINGE 10 ML IV PRN (14:36)
--- NOTE | 2017-10-27 14:36 | History and Physical Report ---
History of Present Illness Chief complaint: 42 YO Female with ESRD on HD(T,R,Sa), DM, HTN, Nephrolithiasis, Patient is 42 years old female history of end-stage disease on hemodialysis at home. Patient presented to the ER after she received a call from [facility] where she was admitted last week. sShe was told that she needed to go to the hospital because she still have infection in her blood. Patient stated that 1 week ago her dialysis catheter came out and she pushed it back in, and since then she started having high fever she went to [facility] and was admitted for infection receive antibiotic and she signed AGAINST MEDICAL ADVICE b/c her Assessment Coordinator was not on staff there.. Patient did not go to [facility] because her kidney doctor Dr. Guzmán, does not go over there. Patient denied any fever at this moment. No nausea no vomiting. Past Medical History Hx Hypertension: Yes Hx Diabetes: Yes Hx Renal Disease: Yes Hx Kidney Stones: Yes Additional medical history: Dialysis (TTS), anemia with blood transfusion. Pancreatitis Surgical History Hx Cholecystectomy: Yes Additional Surgical History: fistula to left arm. PERMACATH LEFT CHEST. fistula to right arm Social History Smoking Status: Never Smoker Substance Use Type: None History of present illness: 42 YO Female with HTN, DM, Nephrolithiasis, REENA, Anemia, Obesity, ESRD on HD(T,R ,Sa) admitted directly to Medical floor. Pt admitted from preop. Pt was found to have hyperkalemia. Pt denies fever, chills, CP, Palpitations, NVD, Syncope, BRBPR, Unintentional weight loss, or night sweats. Pt found to have ESRD, hyperkalemia. Pt admitted to medical floor. Nephrology consulted for urgent dialysis. Past History Past Medical History: anemia, diabetes, ESRD, hypertension Past Surgical History: cholecystectomy Social history: Family history: hypertension Medications and Allergies Allergies Allergy/AdvReac Type Severity Reaction Status Date / Time warfarin sodium Allergy Hives Verified 07/28/17 15:38 [From Coumadin] Home Medications Medication Instructions Recorded Confirmed Last Taken Type glipiZIDE [glipiZIDE XL] 10 mg PO BID 07/04/13 10/27/17 10/26/17 History Sevelamer Carbonate [Renvela] 400 mg PO TID 04/25/14 10/27/17 10/26/17 History Acetaminophen [Tylenol Extra 500 mg PO DAILY PRN 07/28/17 10/27/17 10/26/17 History Strength] Aspirin [Low Dose Aspirin EC] 81 mg PO DAILY 07/28/17 10/27/17 10/26/17 History Metoprolol [Lopressor TAB] 50 mg PO QDAY 07/28/17 10/27/17 10/26/17 History cloNIDine [Catapres] 0.2 mg PO DAILY 07/28/17 10/27/17 10/26/17 History Active Meds: Active Medications Cefazolin Sodium (Ancef/Sterile Water 2 Gm/20 Ml) 2 gm IV PREOP NR Stop: 10/27/17 23:59 Hydromorphone HCl (Dilaudid) 0.5 mg IV Q10MIN PRN PRN Reason: Pain , Severe (7-10) Stop: 10/27/17 19:00 Sodium Chloride (Nacl 0.9% 1000 Ml) 1,000 mls @ 100 mls/hr IV DIRECT MERLE Midazolam HCl (Versed) 2 mg IV PREOP NR Stop: 10/27/17 23:59 Ondansetron HCl (Zofran) 4 mg IV ONCE PRN PRN Reason: Nausea And Vomiting Review of Systems Constitutional: no weight loss, no weight gain, no fever, no chills Ears, nose, mouth and throat: no ear pain, no ear discharge, no tinnitis, no decreased hearing, no nose pain, no nasal congestion, no nasal discharge Breasts: no change in shape, no swelling, no mass Cardiovascular: no chest pain, no orthopnea, no palpitations, no rapid/ irregular heart beat, no edema, no syncope, no lightheadedness Respiratory: no cough, no cough with sputum, no excessive sputum, no hemoptysis , no shortness of breath Gastrointestinal: no abdominal pain, no nausea, no vomiting, no diarrhea, no constipation Genitourinary Female: no pelvic pain, no flank pain, no menorrhagia, no dysuria , no urinary frequency, no urgency Rectal: no pain, no incontinence, no bleeding Musculoskeletal: no neck stiffness, no neck pain, no shooting arm pain, no arm numbness/tingling, no shooting leg pain Integumentary: no rash, no pruritis, no redness, no sores, no wounds Neurological: no transient paralysis, no paralysis, no weakness, no parathesias , no numbness, no tingling, no seizures Psychiatric: no anxiety, no memory loss, no change in sleep habits, no sleep disturbances, no insomnia, no hypersomnia, no change in appetite, no change in libido Endocrine: no cold intolerance, no heat intolerance, no polyphagia, no excessive thirst, no polydipsia, no polyuria Hematologic/Lymphatic: no easy bruising, no easy bleeding, no lymphadenopathy, no lymphedema Allergic/Immunologic: no urticaria, no allergic rhinitis, no persistent infections, no anaphylaxis Exam - Constitutional General appearance: Present: mild distress - EENT Eyes: Present: PERRL ENT: hearing intact, clear oral mucosa - Neck Neck: Present: supple, normal ROM - Respiratory Respiratory effort: normal Respiratory: bilateral: CTA - Cardiovascular Heart Sounds: Present: S1 & S2. Absent: rub, click - Extremities Extremities: pulses symmetrical, No edema Peripheral Pulses: within normal limits - Abdominal General gastrointestinal: Present: soft, non-tender, non-distended, normal bowel sounds Female genitourinary: Present: normal - Integumentary Integumentary: Present: clear, warm, dry - Musculoskeletal Musculoskeletal: gait normal, strength equal bilaterally - Psychiatric Psychiatric: appropriate mood/affect, intact judgment & insight - Neurologic Neurologic: CNII-XII intact, moves all extremities Results - Labs CBC & Chem 7: 10/27/17 13:35 10/27/17 13:35 Labs: Abnormal lab results 10/27/17 10/27/17 10/27/17 Range/Units 12:58 13:35 13:35 Hgb 8.4 L (10.1-14.3) gm/dl Hct 27.5 L (30.3-42.9) % Potassium 7.0 H* (3.6-5.0) mmol/L POC Glucose 125 H (70-105) Assessment and Plan - Patient Problems (1) End-stage renal disease needing dialysis Current Visit: No Status: Chronic Plan to address problem: Nephrology consulted while patient in recovery, dialysis as per renal team. (2) Hyperkalemia Current Visit: No Status: Acute Plan to address problem: calcium gluconate, kayexelate, cmp (3) Anemia in end-stage renal disease Current Visit: No Status: Chronic Plan to address problem: Hgb stable, no transfusion at this time. (4) DVT prophylaxis Current Visit: No Status: Acute Plan to address problem: SCD to BLE while in bed.
[2017-10-27] MEDS ORDERED: KIONEX PO ONE (14:42)
[2017-10-27] MEDS ORDERED: CALCIUM GLUCONATE 1,000 MG in NACL 0.9% 100 ML IV ONE (14:42)
[2017-10-27] MEDS ORDERED: D50W (25GM) Syringe IV PRN (14:44)
[2017-10-27] MEDS ORDERED: DECADRON ONE (14:52)
[2017-10-27] MEDS ORDERED: ANCEF ONE (14:53)
[2017-10-27] MEDS ORDERED: DILAUDID ONE (14:58)
[2017-10-27] MEDS ORDERED: XYLOCAINE 1% 20 mL INFILTRATI ONE (15:04)
[2017-10-27] MEDS ORDERED: NACL 0.9% 250ML IV ONE (15:04)
[2017-10-27] MEDS ORDERED: FLUSH HEPARIN IV ONE ×2 (15:04→15:34)
[2017-10-27] MEDS ORDERED: HEPARIN 10,000 UNITS/10 ML IV PRN (15:54)
[2017-10-27] MEDS ORDERED: NACL 0.9% 100 ML IV PRN (15:54)
[2017-10-27] MEDS ORDERED: PROCRIT IV PRN (15:54)
--- NOTE | 2017-10-27 16:47 | Operative Report ---
Operative Report Operative Report: Operative note: Date: 10/27/2017 Preoperative diagnosis: Renal failure Postoperative diagnosis: Same. Operation: Right femoral Vas-Cath insertion Surgeon: Elo Dawkins. Asst.: None Anesthesia: Local EBL: Minimal Findings: None Indications: 42-year-old lady came in for hero graft malfunction, clotted. She had placement of the graft about 6 days ago and had successful dialysis after insertion and on Wednesday she was not able to get dialysis yesterday. She came to Hospital today, now missing dialysis for 4 days. She was extremely short of breath. Her blood work was sent and showed a potassium of 7. She had need for emergent dialysis, therefore I discussed placement of femoral Vas-Cath and she agreed, signed informed consent. Operative details: Patient was brought to the operating room, prepped and draped right groin in a sterile fashion. Patient was moved to operating table, however she was not able to begin backwards, lay flat. She tolerated only at 90 sitting on nonrebreather mask After timeout performed and all team members in the agreement right femoral vein was accessed under ultrasound guidance with micropuncture needle and exchanged for micropuncture sheath. Wire was advanced in the femoral vein and IVC skin incision was made with 11 blade and serially dilated skin past with subsequent insertion of Vas-Cath catheter 30 cm in length. Ports were checked for good flow and flushed with saline and locked with 1.8 mL of heparin. Catheter was secured in place with 3-0 nylon stitches and sterile dressing applied. She tolerated the procedure well.
[2017-10-27] MEDS ORDERED: HumaLOG SUB-Q SCH (18:00)
[2017-10-27] MEDS ORDERED: RENVELA PO SCH (20:00)
[2017-10-27] MEDS ORDERED: NACL 0.9% IV ONE (22:00)
[2017-10-27] MEDS ORDERED: SODIUM CHLORIDE FLUSH SYRINGE 10 ML IV SCH (22:00)
[2017-10-27] MEDS ORDERED: CALCIUM CHLORIDE IV ONE (22:00)
[2017-10-27 23:54] LABS: Calcium 7.8 mg/dL (8.4-10.2)
[2017-10-28] MEDS ORDERED: PERCOCET 5/325 PO PRN (03:53)
[2017-10-28] MEDS: APRESOLINE IV PRN ×2 (04:08→06:56)
[2017-10-28 07:04] LABS: Albumin 3.8 g/dL (3.9-5); BUN/Creatinine Ratio 3; Blood Urea Nitrogen 30 mg/dL (7-17); Calcium 7.5 mg/dL (8.4-10.2); Hemolysis Index 38
[2017-10-28 07:05] LABS: Alanine Aminotransferase < 5 units/L (7-56)
[2017-10-28] MEDS ORDERED: LOPRESSOR PO SCH (10:00)
[2017-10-28] MEDS ORDERED: HALFPRIN EC PO SCH (10:00)
[2017-10-28] MEDS ORDERED: CATAPRES PO SCH (10:00)
[2017-10-28] MEDS ORDERED: PEPCID IV NR (10:00)
[2017-10-28] MEDS ORDERED: REGLAN IV NR (10:00)
[2017-10-28 10:05] VITALS: BP 139/99
--- NOTE | 2017-10-28 10:27 | Progress Note ---
Hospitalist Physical - Constitutional Vitals: Temp Pulse Resp BP Pulse Ox 97.0 F L 107 H 24 139/99 99 10/28/17 09:29 10/28/17 09:29 10/28/17 09:29 10/28/17 09:29 10/28/17 09:35 - Cardiovascular Heart Sounds: Absent: gallop, rub Results - Labs CBC & Chem 7: 10/27/17 13:35 10/28/17 05:23 Labs: Laboratory Last Values Hgb 8.4 gm/dl (10.1-14.3) L 10/27/17 13:35 Hct 27.5 % (30.3-42.9) L 10/27/17 13:35 Sodium 135 mmol/L (137-145) L 10/28/17 05:23 Potassium 3.9 mmol/L (3.6-5.0) 10/28/17 05:23 Chloride 91.7 mmol/L (98-107) L 10/28/17 05:23 Carbon Dioxide 26 mmol/L (22-30) 10/28/17 05:23 Anion Gap 21 mmol/L 10/28/17 05:23 BUN 30 mg/dL (7-17) H 10/28/17 05:23 Creatinine 9.8 mg/dL (0.7-1.2) H 10/28/17 05:23 Estimated GFR 5 ml/min 10/28/17 05:23 BUN/Creatinine Ratio 3 % 10/28/17 05:23 Glucose 101 mg/dL (65-100) H 10/28/17 05:23 POC Glucose 188 (70-105) H 10/28/17 09:30 Calcium 7.5 mg/dL (8.4-10.2) L 10/28/17 05:23 Total Bilirubin 0.30 mg/dL (0.1-1.2) 10/28/17 05:23 AST 18 units/L (5-40) 10/28/17 05:23 ALT < 5 units/L (7-56) L 10/28/17 05:23 Alkaline Phosphatase 137 units/L (35-129) H 10/28/17 05:23 Total Protein 8.1 g/dL (6.3-8.2) 10/28/17 05:23 Albumin 3.8 g/dL (3.9-5) L 10/28/17 05:23 Albumin/Globulin Ratio 0.9 % 10/28/17 05:23
[2017-10-28] MEDS ORDERED: SUBLIMAZE ONE (10:34)
[2017-10-28] MEDS ORDERED: DIPRIVAN 10 MG/ML IV ONE (10:34)
[2017-10-28] MEDS ORDERED: ZEMURON IV ONE (10:34)
[2017-10-28] MEDS ORDERED: MARCAINE 0.5% 0 ML INFILTRATI ONE (10:41)
[2017-10-28] MEDS ORDERED: ANCEF/STERILE WATER 2 GM/20 ML IV NR (10:45)
[2017-10-28] MEDS ORDERED: Vasostrict ONE ×2 (11:27→11:28)
--- NOTE | 2017-10-28 12:41 | Event Note ---
Date: 10/28/17 Responded to STAT call from OR. Pt in cardiac arrest with ACLS protocol ongoing for about 30 minutes. Rhythm noted to be PEA with no improvement after 4 doses of epinephrine and active CPR. Pt also received atropine and additional dose of epinephrine. A transthoracic echocardiogram was ordered and a transesophageal echocardiogram was attempted per anesthesia. ARLIN was aborted as there was no cardiac activity. Pt was pronounced. D/w Dr. Jones and anesthesiologist. Pema SORTO, TETE / DR. KARLA BAIRES
--- NOTE | 2017-10-28 12:44 | Operative Report ---
Operative Report Operative Report: Date of operation 10/28/2017 Preoperative Diagnosis: Thrombosed dialysis access graft (HER0) left arm, end stage renal disease stage V, morbid obesity Postop diagnosis: Hemodynamic collapse upon induction with asystole and cardiac arrest not responsive to 1 hour of the CPR via ACLS protocol Operative procedure: None, (asystole occurred prior to initiation of the AV graft thrombectomy )initiation of CPR via ACLS protocol Surgical indications: Morbidly obese female who had undergone creation of an left upper arm looped AV graft with hero venous component 7-10 days ago and was found to have thrombosed her access over the weekend. She presented to [facility] for an urgent thrombectomy but was found to have a potassium of 7 and underwent placement of a femoral Vas-Cath instead. She underwent successful hemodialysis was brought back to the operating suite for the thrombectomy. She had noted shortness of breath and a little anxiety over the weekend but because of missing dialysis it was suspected she was mildly fluid overloaded. Her potassium rechecked was within normal limits and she was brought to the operative suite for thrombectomy. Upon induction her CO2 levels dropped precipitously a few seconds of intubation she was somewhat difficult to ventilate. Sounds were bilaterally present. He became severely bradycardic and we were unable to obtain a blood pressure or pulse and CPR via ACLS protocol was initiated. A fluoroscopic image of the chest was obtained as the fluoroscope was already in the room for the anticipated thrombectomy. This confirmed good placement of the endotracheal tube in the main stem bronchus. Cardiology was consulted and arrived in the OR and assisted in the CPR. Fortunately she developed a rhythm without weight or pulse. And a ARLIN was performed which confirmed the absence of cardiac motion. After approximately one hour resuscitative efforts the suture was pronounced at 12:04 PM. An exact cause of her is not clinically obvious however massive pulmonary embolism is fairly high on the list. Family has been notified during the CPR and is currently in route to the hospital.
--- NOTE | 2017-10-28 13:15 | XRay Report ---
AP CHEST: HISTORY: Endotracheal tube placement A limited AP fluoroscopic view of the chest was obtained for endotracheal tube placement. The endotracheal tube appears in adequate position terminating approximately 3 cm superior to the simone. Mild cardiomegaly is partially imaged. The visualized lungs are clear. IMPRESSION: Limited exam. Adequate placement of the endotracheal tube.
--- NOTE | 2017-10-28 13:47 | Post Anesthesia Evaluation ---
- Post Anesthesia Evaluation Patient Participated: Yes Airway Patent: Yes Stable Respiratory Function: No Nausea/Vomiting: No Temp > 96.8F: Yes Pain Manageable: Yes Adequeate Hydration: Yes Anesthesia Complications: Yes (pt coded upon standard induction, decreased Co2, increased peaked airway)
--- NOTE | 2017-11-01 14:15 | XRay Report ---
FINAL REPORT EXAM: XR CHEST 1V AP HISTORY: dypsnea TECHNIQUE: AP portable view of the chest. PRIORS: 07/28/2007 FINDINGS: There is a left-sided Vas-Cath with the tip in the distal SVC. The cardiac silhouette is moderately enlarged without change. The pulmonary vascularity appears normal. The lungs are clear. The bones and soft tissues are unremarkable. IMPRESSION: Stable cardiomegaly
== END 2017-10-28 12:05 ==
LOC: OR 12:11 → 3A 16:22
PROVIDERS: ADMIT Internal Medicine; ATTEND Hospitalist
DX: I12.0 Hypertensive chronic kidney disease with stage 5 chronic kidney disease or end stage renal disease (principal); N18.6 End stage renal disease; E11.22 Type 2 diabetes mellitus with diabetic chronic kidney disease; E78.5 Hyperlipidemia, unspecified; D63.1 Anemia in chronic kidney disease; E87.5 Hyperkalemia
CPT/HCPCS: 36140; 36415; 71045; 80048; 80053; 82962; 84132; 85014; 85018; 96372; 96374; 96375; 96376; C1752; C1769; G0378; J0360; J0690; J0885; J1642; J1644; J2405; J2704; J2765; J3010; J7030; J7040; J7050; G0257; J0610; J1100; J1170; J2720